=== PATIENT | female | born 1940 | race Caucasian/White ===

== ENCOUNTER 2018-06-19 12:16 | Emergency (ER) | payer MEDICARE, OTHER ==
[~2018-06-19] VITALS: Ht 165.1 cm; Wt 68.0 kg
--- OUTSIDE RECORDS SUMMARY | 2018-06-19 12:23 | XMS REPORT | CCD ---
Author Author Georgette Milner MD, [facility] Address [address] [place] [address] Phone Care Team Providers Care Whitewasher Name Role Phone PP Unavailable CCM Unavailable Summary Purpose Interface Exchange Insurance Providers Payer name Policy type / Coverage type Covered democrat ID Effective Begin Date Effective End Date WPS Medicare Part B Medicare Part B [id number] Unknown [employer] Medicare Part B [id number] Unknown Family history Mother Diagnosis Age At Onset Arthritis Unknown Heart Attack Unknown Coronary Artery Disease Unknown Brother Diagnosis Age At Onset Arthritis Unknown Cancer Unknown Father Diagnosis Age At Onset Cancer Unknown Arthritis Unknown Sister Diagnosis Age At Onset Arthritis Unknown Social History Social History Element Codes Description Effective Dates Marital status Unknown Fred 08/17/2015 Employment Unknown Retired 08/17/[address]: 107349742 Never smoker 08/17/[address]: 398127827 Never drinks alcohol 08/17/2015 Allergies, Adverse Reactions, Alerts Substance Reaction Codes Entered Date Inactivated Date Status levothyroxine drowsiness RxNorm: 45029 07/24/2017 No Inactive Date Active * OTHER REACTION - SEE ANSWER BOX LEVOTHYROXINE - pt cannot tolerate medication Unknown 07/24/2017 No Inactive Date Active CODEINE emesis, RxNorm: 2670 08/17/2015 No Inactive Date Active Past Medical History Illness Codes Condition Status Onset Date Resolved Date Essential (primary) hypertension ICD-9: 401.1 ICD-10: I10 Active 05/18/2016 Unknown Gastro-esophageal reflux disease without esophagitis ICD-9: 530.81 ICD-10: K21.9 Active 11/01/2017 Unknown Hypothyroidism, unspecified ICD-9: 244.9 ICD-10: E03.9 Active 01/27/2017 Unknown Anemia, unspecified ICD-9: 285.9 ICD-10: D64.9 Active 08/20/2015 Unknown Iron deficiency anemia, unspecified ICD-9: 280.9 ICD-10: D50.9 Active 08/16/2015 Unknown Other specified hypothyroidism ICD-9: 244.8 ICD-10: E03.8 Active 10/16/2017 Unknown Major depressive disorder, single episode, unspecified ICD-9: 311 ICD-10: F32.9 Active 11/23/2015 Unknown Acute laryngopharyngitis ICD-9: 465.0 ICD-10: J06.0 Active 06/28/2017 Unknown Other allergic rhinitis ICD-9: 477.8 ICD-10: J30.89 Active 06/28/2017 Unknown Hypothryroidism Unknown Active 01/27/2017 Unknown Encounter for general adult medical examination with abnormal findings ICD-9: V70.0 ICD-10: Z00.01 Active 01/10/2017 Unknown Generalized anxiety disorder ICD-9: 308.0 ICD-10: F41.1 Active 02/24/2016 Unknown Major depressive disorder, single episode, mild ICD-9: 296.21 ICD-10: F32.0 Active 05/18/2016 Unknown Essential (primary) hypertension ICD-9: 401.9 ICD-10: I10 Active 02/24/2016 Unknown Localized edema ICD-9 : 782.3 ICD-10: R60.0 Active 02/24/2016 Unknown Depression Unknown Active 08/17/2015 Unknown Osteoarthritis Unknown Active 08/17/2015 Unknown Unspecified osteoarthritis, unspecified site ICD-9: 715.90 ICD-10: M19.90 Active 08/16/2015 Unknown Vitamin D deficiency, unspecified ICD-9: 268.9 ICD-10: E55.9 Active 08/16/2015 Unknown Problems Condition Codes Effective Dates Condition Status Essential (primary) hypertension ICD-9: 401.1 ICD-10: I10 05/18/2016 Active Gastro-esophageal reflux disease without esophagitis ICD-9: 530.81 ICD-10: K21.9 11/01/2017 Active Hypothyroidism, unspecified ICD-9: 244.9 ICD-10: E03.9 01/27/2017 Active Anemia, unspecified ICD-9: 285.9 ICD-10: D64.9 08/20/2015 Active Iron deficiency anemia, unspecified ICD-9: 280.9 ICD-10: D50.9 08/16/2015 Active Other specified hypothyroidism ICD-9: 244.8 ICD-10: E03.8 10/16/2017 Active Major depressive disorder, single episode, unspecified ICD-9: 311 ICD-10: F32.9 11/23/2015 Active Acute laryngopharyngitis ICD-9: 465.0 ICD-10: J06.0 06/28/2017 Active Other allergic rhinitis ICD-9: 477.8 ICD-10: J30.89 06/28/2017 Active Hypothryroidism Unknown 01/27/2017 Active Encounter for general adult medical examination with abnormal findings ICD-9: V70.0 ICD-10: Z00.01 01/10/2017 Active Generalized anxiety disorder ICD-9: 308.0 ICD-10: F41.1 02/24/2016 Active Major depressive disorder, single episode, mild ICD-9: 296.21 ICD-10: F32.0 05/18/2016 Active Essential (primary) hypertension ICD-9: 401.9 ICD-10: I10 02/24/2016 Active Localized edema ICD-9 : 782.3 ICD-10: R60.0 02/24/2016 Active Depression Unknown 08/17/2015 Active Osteoarthritis Unknown 08/17/2015 Active Unspecified osteoarthritis, unspecified site ICD-9: 715.90 ICD-10: M19.90 08/16/2015 Active Vitamin D deficiency, unspecified ICD-9: 268.9 ICD-10: E55.9 08/16/2015 Active Medications Medication Codes Instructions Start Date Stop Date Status Fill Instructions losartan 100 mg-hydrochlorothiazide 12.5 mg tablet RxNorm: 817807 TAKE 1 TABLET BY MOUTH DAILY 06/12/2018 03/08/2019 Active Generic For:HYZAAR TAB 100/12.5 2017 8:42:57 AM escitalopram 20 mg tablet RxNorm: 364703 1 Tablet(s) daily 09/15/2018 Active losartan 100 mg-hydrochlorothiazide 12.5 mg tablet RxNorm: 361889 TAKE 1 TABLET BY MOUTH DAILY 11/16/2017 05/14/2018 Inactive Generic For:HYZAAR TAB 100/12.5 8:31:08 AM escitalopram 20 mg tablet RxNorm: 002403 1 Tablet(s) daily 02/11/2018 Inactive losartan 100 mg-hydrochlorothiazide 12.5 mg tablet RxNorm: 160783 Tablet(s) TAKE ONE TABLET BY MOUTH ONCE DAILY 08/16/2017 11/15/2017 Inactive escitalopram 20 mg tablet RxNorm: 915922 1 Tablet(s) daily 08/15/2017 Inactive Vitamin D3 2,000 unit tablet RxNorm: 184548 1867 Unit(s) PO daily 07/24/2017 No Stop Date Active escitalopram 20 mg tablet RxNorm: 324671 1 Tablet(s) daily 08/15/2017 Inactive levothyroxine 50 mcg tablet RxNorm: 723328 1 Tablet(s) PO daily 07/21/2017 07/20/2017 Inactive this is a new higher dose - dc the lower dose from her med refill que levothyroxine 50 mcg tablet RxNorm: 249325 1 Tablet(s) PO daily 07/21/2017 07/23/2017 Inactive this is a new higher dose - dc the lower dose from her med refill que Kenalog 40 mg/mL suspension for injection RxNorm: 7673964 1 Milliliter(s) Inj 06/28/2017 06/28/2017 Inactive prednisone 20 mg tablet RxNorm: 215475 2 Tablet(s) PO daily 07/02/2017 Inactive ceftriaxone 500 mg solution for injection RxNorm: 7755858 1 Milliliter(s) Inj 06/28/2017 06/28/2017 Inactive Keflex 500 mg capsule RxNorm: 772971 1 Capsule(s) PO TID 201607/07/2017 Inactive Zithromax Z-Bob 250 mg tablet RxNorm: 407345 1 Tablet(s) PO UD 06/23/2017 06/27/2017 Inactive Pepcid 20 mg tablet RxNorm: 551787 1 Tablet(s) PO BID 201607/23/2017 Inactive Zithromax Z-Bob 250 mg tablet RxNorm: 674627 1 Tablet(s) PO UD 06/23/2017 06/22/2017 Inactive Pepcid 20 mg tablet RxNorm: 867919 1 Tablet(s) PO BID 201606/22/2017 Inactive losartan 100 mg-hydrochlorothiazide 12.5 mg tablet RxNorm: 603799 TAKE ONE TABLET BY MOUTH ONCE DAILY 05/19/2017 08/15/2017 Inactive escitalopram 20 mg tablet RxNorm: 856563 TAKE ONE-HALF TABLET BY MOUTH TWICE DAILY 02/20/2017 07/23/2017 Inactive levothyroxine 25 mcg tablet RxNorm: 402653 1 Tablet(s) PO daily 01/27/2017 01/26/2017 Inactive levothyroxine 25 mcg tablet RxNorm: 498393 1 Tablet(s) PO daily 01/27/2017 05/26/2017 Inactive levothyroxine 25 mcg tablet RxNorm: 688788 1 Tablet(s) PO daily 01/27/2017 01/26/2017 Inactive escitalopram 20 mg tablet RxNorm: 306955 TAKE ONE-HALF TABLET BY MOUTH TWICE DAILY 12/19/2016 02/16/2017 Inactive escitalopram 20 mg tablet RxNorm: 006278 TAKE ONE-HALF TABLET BY MOUTH TWICE DAILY 09/21/2016 09/20/2016 Inactive escitalopram 20 mg tablet RxNorm: 443064 Tablet(s) TAKE ONE-HALF TABLET BY MOUTH TWICE DAILY 09/21/2016 10/31/2017 Inactive escitalopram 20 mg tablet RxNorm: 977510 1/2 Tablet(s) PO BID 05/19/2016 09/15/2016 Inactive losartan 100 mg-hydrochlorothiazide 12.5 mg tablet RxNorm: 728164 1 Tablet(s) PO daily 05/19/2016 05/13/2017 Inactive losartan 50 mg-hydrochlorothiazide 12.5 mg tablet RxNorm: 787374 1 Tablet(s) PO daily 02/25/2016 05/18/2016 Inactive escitalopram 10 mg tablet RxNorm: 107283 1/2 Tablet(s) PO BID 02/25/2016 05/18/2016 Inactive losartan 25 mg tablet RxNorm: 028010 1 Tablet(s) PO daily 201502/24/2016 Inactive Lexapro 5 mg tablet RxNorm: 977531 1 Tablet(s) PO QPM 201502/24/2016 Inactive Vitamin D2 50,000 unit capsule RxNorm: 959482 1 Capsule(s) PO QW 08/21/2015 11/23/2015 Inactive melatonin 3 mg tablet RxNorm: 762059 1 Tablet(s) PO QHS No Start Date Active bilberry 100 mg capsule RxNorm: 068860 1 Capsule(s) PO daily No Start Date Active Calcium 500 + D 500 mg (1,250 mg)-200 unit tablet RxNorm: 130429 1 Tablet(s) PO daily No Start Date 07/23/2017 Inactive Vitamin D2 oral RxNorm : 4018 oral No Start Date 08/21/2015 Inactive Vitamin D3 2,000 unit tablet RxNorm: 090451 1 Tablet(s) PO daily No Start Date 07/23/2017 Inactive boron oral RxNorm: 1705 oral No Start Date 11/23/2015 Inactive Joint Formula tablet RxNorm: 1 Tablet(s) PO BID No Start Date 07/23/2017 Inactive Super B-Complex oral RxNorm: oral No Start Date 10/31/2017 Inactive Vitamin D2 50,000 unit capsule RxNorm: 949860 1 Capsule(s) PO QW No Start Date 08/20/2015 Inactive Medication Administered Medication Codes Instructions Start Date Status Kenalog 40 mg/mL suspension for injection RxNorm: 4777684 1Milliliter 06/28/2017 No longer Active ceftriaxone 500 mg solution for injection RxNorm: 6829374 1Milliliter 06/28/2017 No longer Active Immunizations No Immunization data Assessments Condition Codes Effective Dates Essential (primary) hypertension ICD-10: I10 ICD-9: 401.1 03/08/2018 Hypothyroidism, unspecified ICD-10: E03.9 ICD-9: 244.9 03/02/2018 Gastro-esophageal reflux disease without esophagitis ICD-10 : K21.9 ICD-9: 530.81 11/01/2017 Anemia, unspecified ICD-10: D64.9 ICD-9: 285.9 10/16/2017 Other specified hypothyroidism ICD-10: E03.8 ICD-9: 244.8 10/16/2017 Iron deficiency anemia, unspecified ICD-10: D50.9 ICD-9: 280.9 10/16/2017 Major depressive disorder, single episode, unspecified ICD- 10: F32.9 ICD-9: 311 07/24/2017 Acute laryngopharyngitis ICD-10: J06.0 ICD-9: 465.0 06/28/2017 Other allergic rhinitis ICD-10: J30.89 ICD-9: 477.8 06/28/2017 Encounter for general adult medical examination with abnormal findings ICD-10: Z00.01 ICD-9: V70.0 01/10/2017 Generalized anxiety disorder ICD-10: F41.1 ICD-9: 308.0 01/02/2017 Major depressive disorder, single episode, mild ICD-10: F32.0 ICD-9: 296.21 01/02/2017 Essential (primary) hypertension ICD-10: I10 ICD-9: 401.9 02/25/2016 Localized edema ICD-10: R60.0 ICD-9: 782.3 02/25/2016 Unspecified osteoarthritis, unspecified site ICD-10: M19.90 ICD-9: 715.90 08/17/2015 Vitamin D deficiency, unspecified ICD-10: E55.9 ICD-9: 268.9 08/17/2015 Reason For Visit Reason For Visit Effective Dates Notes hypertension 03/08/2018 hypertension 11/01/2017 medication follow up 07/24/2017 Synthroid hypertension 07/06/2017 cough 06/28/2017 Annual Medicare Wellness Exam 01/10/2017 hypertension 01/02/2017 hypertension 06/23/2016 hypertension 05/19/2016 hypertension 02/25/2016 hypertension 11/24/2015 nocturia 11/03/2015 nocturia 08/17/2015 Results Observation Observation Code Item Item Code Result Date Tsh Ord6 TSH (3rd IS) 4.72 uIU/mL 03/06/2018 Free T4 Xuf321 FREE T4 0.81 ng/dL 03/06/2018 Free T4 Eiq400 FREE T4 0.93 ng/dL 10/30/2017 Comp Metabolic Vhv891 NA 139 mEq/L 10/30/2017 Comp Metabolic Phz596 K 4.1 mEq/L 10/30/2017 Comp Metabolic Kiw310 CL 100 mEq/L 10/30/2017 Comp Metabolic Glx101 CO2 33.0 mEq/L 10/30/2017 Comp Metabolic Tmj734 ANION GAP 10 10/30/2017 Comp Metabolic Hqf117 GLUCOSE 97 mg/dL 10/30/2017 Comp Metabolic Vdo272 Creat 0.7 mg/dL 10/30/2017 Comp Metabolic Sny239 eGFR 80 ml/min/1.73m2 10/30/2017 Comp Metabolic Kbw494 BUN 6 mg/dL 10/30/2017 Comp Metabolic Lln383 B/C Ratio 8.1 Ratio 10/30/2017 Comp Metabolic Kuk838 CALCIUM 8.9 mg/dL 10/30/2017 Comp Metabolic Vdg930 ALK PHOS 76 U/L 10/30/2017 Comp Metabolic Prb190 AST(SGOT) 19 U/L 10/30/2017 Comp Metabolic Eas586 ALT(SGPT) 16 U/L 10/30/2017 Comp Metabolic Xoz316 BILI T 0.5 mg/dL 10/30/2017 Comp Metabolic Dmh354 ALBUMIN 3.9 g/dL 10/30/2017 Comp Metabolic Hal324 TPRO 6.1 g/dL 10/30/2017 Comp Metabolic Zdh877 GLOB 2.2 g/dL 10/30/2017 Comp Metabolic Cvl078 A/G Ratio 1.8 Ratio 10/30/2017 Comp Metabolic Uel429 Osmo 275 mOsmo 10/30/2017 Lipid Ord30 CHOL 205 mg/dL 10/30/2017 Lipid Ord30 HDL 59.0 mg/dl 10/30/2017 Lipid Ord30 TRIG 88 mg/dL 10/30/2017 Lipid Ord30 LDL 128 mg/dL 10/30/2017 Lipid Ord30 C/HDL 3.5 Ratio 10/30/2017 Cbc With Differential Ord2 WBC 3.35 K/ul 10/30/2017 Cbc With Differential Ord2 RBC 4.54 M/ul 10/30/2017 Cbc With Differential Ord2 HGB 14.0 g/dl 10/30/2017 Cbc With Differential Ord2 HCT 43.1 % 10/30/2017 Cbc With Differential Ord2 Neut% 41.7 % 10/30/2017 Cbc With Differential Ord2 MCV 94.9 fl 10/30/2017 Cbc With Differential Ord2 Lymph% 43.6 % 10/30/2017 Cbc With Differential Ord2 MCH 30.8 pg 10/30/2017 Cbc With Differential Ord2 Henderson% 9.9 % 10/30/2017 Cbc With Differential Ord2 Eos% 3.6 % 10/30/2017 Cbc With Differential Ord2 MCHC 32.5 pg 10/30/2017 Cbc With Differential Ord2 Baso% 1.2 % 10/30/2017 Cbc With Differential Ord2 PLT 199 K/ul 10/30/2017 Cbc With Differential Ord2 RDW 13.3 % 10/30/2017 Cbc With Differential Ord2 Neut ABS# 1.40 K/ul 10/30/2017 Cbc With Differential Ord2 Lymph ABS# 1.46 K/ul 10/30/2017 Cbc With Differential Ord2 Henderson ABS# 0.3 K/ul 10/30/2017 Cbc With Differential Ord2 Eos ABS# 0.1 K/ul 10/30/2017 Cbc With Differential Ord2 Baso ABS# 0.0 K/ul 10/30/2017 Tsh Ord6 TSH (3rd IS) 4.56 uIU/mL 10/30/2017 Tsh Ord6 hTSH II 4.86 uIU/mL 07/21/2017 Hepatic Nca848 ALBUMIN 3.8 g/dL 07/21/2017 Hepatic Pma709 TPRO 6.1 g/dL 07/21/2017 Hepatic Lcz734 GLOB 2.3 g/dL 07/21/2017 Hepatic Jhe944 A/G Ratio 1.6 Ratio 07/21/2017 Hepatic War268 ALK PHOS 75 U/L 07/21/2017 Hepatic Zml925 ALT(SGPT) 21 U/L 07/21/2017 Hepatic Jrz527 AST(SGOT) 18 U/L 07/21/2017 Hepatic Rgj651 BILI T 0.3 mg/dL 07/21/2017 Hepatic Ytw478 BILI D 0.1 mg/dL 07/21/2017 Hepatic Zdo727 BILI I 0.2 mg/dL 07/21/2017 Free T4 Gmw365 FREE T4 0.84 ng/dL 07/21/2017 Lipid Ord30 CHOL 202 mg/dL 07/21/2017 Lipid Ord30 HDL 60.0 mg/dl 07/21/2017 Lipid Ord30 TRIG 80 mg/dL 07/21/2017 Lipid Ord30 LDL 126 mg/dL 07/21/2017 Lipid Ord30 C/HDL 3.4 Ratio 07/21/2017 Free T4 Fyq086 FREE T4 0.96 ng/dL 04/28/2017 Lipid Ord30 CHOL 195 mg/dL 04/28/2017 Lipid Ord30 HDL 53.0 mg/dl 04/28/2017 Lipid Ord30 TRIG 96 mg/dL 04/28/2017 Lipid Ord30 LDL 123 mg/dL 04/28/2017 Lipid Ord30 C/HDL 3.7 Ratio 04/28/2017 Tsh Ord6 hTSH II 3.95 uIU/mL 04/28/2017 Hepatic Qph167 ALBUMIN 4.0 g/dL 04/28/2017 Hepatic Jxh926 TPRO 6.2 g/dL 04/28/2017 Hepatic Fag043 GLOB 2.2 g/dL 04/28/2017 Hepatic Hjv694 A/G Ratio 1.8 Ratio 04/28/2017 Hepatic Fmy338 ALK PHOS 77 U/L 04/28/2017 Hepatic Txh433 ALT(SGPT) 14 U/L 04/28/2017 Hepatic Cib862 AST(SGOT) 17 U/L 04/28/2017 Hepatic Smv005 BILI T 0.6 mg/dL 04/28/2017 Hepatic Pox338 BILI D 0.1 mg/dL 04/28/2017 Hepatic Hrl531 BILI I 0.5 mg/dL 04/28/2017 Free T4 Viu574 FREE T4 0.78 ng/dL 02/01/2017 Comp Metabolic Ddi681 NA 138 mEq/L 01/26/2017 Comp Metabolic Oob871 K 5.4 mEq/L 01/26/2017 Comp Metabolic Qpz582 CL 102 mEq/L 01/26/2017 Comp Metabolic Vjk934 CO2 30.0 mEq/L 01/26/2017 Comp Metabolic Zdr404 ANION GAP 11 01/26/2017 Comp Metabolic Uie292 GLUCOSE 93 mg/dL 01/26/2017 Comp Metabolic Aai857 Creat 0.8 mg/dL 01/26/2017 Comp Metabolic Wnx337 eGFR 71 ml/min/1.73m2 01/26/2017 Comp Metabolic Xna970 BUN 13 mg/dL 01/26/2017 Comp Metabolic Vpg872 B/C Ratio 15.9 Ratio 01/26/2017 Comp Metabolic Lnk305 CALCIUM 9.5 mg/dL 01/26/2017 Comp Metabolic Zvq546 ALK PHOS 71 U/L 01/26/2017 Comp Metabolic Naa887 AST(SGOT) 15 U/L 01/26/2017 Comp Metabolic Ypk213 ALT(SGPT) 11 U/L 01/26/2017 Comp Metabolic Vfh617 BILI T 0.5 mg/dL 01/26/2017 Comp Metabolic Zcu646 ALBUMIN 4.0 g/dL 01/26/2017 Comp Metabolic Eyf413 TPRO 6.4 g/dL 01/26/2017 Comp Metabolic Xac627 GLOB 2.4 g/dL 01/26/2017 Comp Metabolic Ykj264 A/G Ratio 1.7 Ratio 01/26/2017 Comp Metabolic Frr030 Osmo 275 mOsmo 01/26/2017 Bili D Ord93 BILI D 0.1 mg/dL 01/26/2017 Bili D Ord93 BILI I 0.4 mg/dL 01/26/2017 Tsh Ord6 hTSH II 5.36 uIU/mL 01/26/2017 Cbc With Differential Ord2 WBC 4.03 K/ul 01/26/2017 Cbc With Differential Ord2 RBC 4.70 M/ul 01/26/2017 Cbc With Differential Ord2 HGB 14.0 g/dl 01/26/2017 Cbc With Differential Ord2 HCT 41.6 % 01/26/2017 Cbc With Differential Ord2 Neut% 37.3 % 01/26/2017 Cbc With Differential Ord2 MCV 88.5 fl 01/26/2017 Cbc With Differential Ord2 Lymph% 49.9 % 01/26/2017 Cbc With Differential Ord2 Henderson% 8.9 % 01/26/2017 Cbc With Differential Ord2 MCH 29.8 pg 01/26/2017 Cbc With Differential Ord2 MCHC 33.7 pg 01/26/2017 Cbc With Differential Ord2 Eos% 2.7 % 01/26/2017 Cbc With Differential Ord2 PLT 216 K/ul 01/26/2017 Cbc With Differential Ord2 Baso% 1.2 % 01/26/2017 Cbc With Differential Ord2 RDW 14.0 % 01/26/2017 Cbc With Differential Ord2 Neut ABS# 1.50 K/ul 01/26/2017 Cbc With Differential Ord2 Lymph ABS# 2.01 K/ul 01/26/2017 Cbc With Differential Ord2 Henderson ABS# 0.4 K/ul 01/26/2017 Cbc With Differential Ord2 Eos ABS# 0.1 K/ul 01/26/2017 Cbc With Differential Ord2 Baso ABS# 0.1 K/ul 01/26/2017 Lipid Ord30 CHOL 198 mg/dL 01/26/2017 Lipid Ord30 HDL 60.0 mg/dl 01/26/2017 Lipid Ord30 TRIG 79 mg/dL 01/26/2017 Lipid Ord30 LDL 122 mg/dL 01/26/2017 Lipid Ord30 C/HDL 3.3 Ratio 01/26/2017 Lipid Ord30 CHOL 201 mg/dL 07/22/2016 Lipid Ord30 HDL 59.0 mg/dl 07/22/2016 Lipid Ord30 TRIG 69 mg/dL 07/22/2016 Lipid Ord30 LDL 128 mg/dL 07/22/2016 Lipid Ord30 C/HDL 3.4 Ratio 07/22/2016 Comp Metabolic Lns701 NA 137 mEq/L 07/22/2016 Comp Metabolic Lus535 K 4.3 mEq/L 07/22/2016 Comp Metabolic Snq832 CL 101 mEq/L 07/22/2016 Comp Metabolic Sas536 CO2 31.0 mEq/L 07/22/2016 Comp Metabolic Tsg317 ANION GAP 9 07/22/2016 Comp Metabolic Qfr404 GLUCOSE 90 mg/dL 07/22/2016 Comp Metabolic Uad761 Creat 0.9 mg/dL 07/22/2016 Comp Metabolic Oim029 eGFR 64 ml/min/1.73m2 07/22/2016 Comp Metabolic Tgw919 BUN 9 mg/dL 07/22/2016 Comp Metabolic Fqa883 B/C Ratio 10.0 Ratio 07/22/2016 Comp Metabolic Knj672 CALCIUM 9.4 mg/dL 07/22/2016 Comp Metabolic Bkf954 ALK PHOS 65 U/L 07/22/2016 Comp Metabolic Awa954 AST(SGOT) 16 U/L 07/22/2016 Comp Metabolic Hkp883 ALT(SGPT) 13 U/L 07/22/2016 Comp Metabolic Qmm633 BILI T 0.4 mg/dL 07/22/2016 Comp Metabolic Jfw800 ALBUMIN 4.2 g/dL 07/22/2016 Comp Metabolic Ygz499 TPRO 6.6 g/dL 07/22/2016 Comp Metabolic Fmp814 GLOB 2.4 g/dL 07/22/2016 Comp Metabolic Rjw681 A/G Ratio 1.7 Ratio 07/22/2016 Comp Metabolic Zln055 Osmo 272 mOsmo 07/22/2016 Tsh Ord6 hTSH II 3.94 uIU/mL 07/22/2016 Vitamin D 25 Oh Agz8293 VITAMIN D, 25 HYDROXY 55.11 ng/mL Comp Metabolic Pvv901 NA 139 mEq/L 11/02/2015 Comp Metabolic Oer268 K 4.3 mEq/L 11/02/2015 Comp Metabolic Sct175 CL 103 mEq/L 11/02/2015 Comp Metabolic Okp053 CO2 29.0 mEq/L 11/02/2015 Comp Metabolic Cab970 ANION GAP 11 11/02/2015 Comp Metabolic Axg607 GLUCOSE 87 mg/dL 11/02/2015 Comp Metabolic Paz103 Creat 0.8 mg/dL 11/02/2015 Comp Metabolic Lyk678 eGFR 70 ml/min/1.73m2 11/02/2015 Comp Metabolic Aro169 BUN 11 mg/dL 11/02/2015 Comp Metabolic Det894 B/C Ratio 13.1 Ratio 11/02/2015 Comp Metabolic Nsw734 CALCIUM 9.0 mg/dL 11/02/2015 Comp Metabolic Xgu530 ALK PHOS 90 U/L 11/02/2015 Comp Metabolic Mel872 AST(SGOT) 15 U/L 11/02/2015 Comp Metabolic Hju172 ALT(SGPT) 12 U/L 11/02/2015 Comp Metabolic Bts750 BILI T 0.5 mg/dL 11/02/2015 Comp Metabolic Vto370 ALBUMIN 3.7 g/dL 11/02/2015 Comp Metabolic Lae825 TPRO 6.2 g/dL 11/02/2015 Comp Metabolic Yap674 GLOB 2.5 g/dL 11/02/2015 Comp Metabolic Zys237 A/G Ratio 1.5 Ratio 11/02/2015 Comp Metabolic Cqb709 Osmo 276 mOsmo 11/02/2015 Iron Ord72 Iron 36 ug/dl 08/25/2015 Vitamin D 25 Oh Asn8936 VITAMIN D, 25 HYDROXY 26.14 ng/mL Comp Metabolic Ahn846 NA 138 mEq/L 08/17/2015 Comp Metabolic Xup430 K 4.5 mEq/L 08/17/2015 Comp Metabolic Fxd674 CL 100 mEq/L 08/17/2015 Comp Metabolic Kip133 CO2 29.0 mEq/L 08/17/2015 Comp Metabolic Fmd385 ANION GAP 14 08/17/2015 Comp Metabolic Smy994 GLUCOSE 88 mg/dL 08/17/2015 Comp Metabolic Dir115 Creat 0.8 mg/dL 08/17/2015 Comp Metabolic Dlr434 eGFR 74 ml/min/1.73m2 08/17/2015 Comp Metabolic Srg400 BUN 9 mg/dL 08/17/2015 Comp Metabolic Qwr637 B/C Ratio 11.3 Ratio 08/17/2015 Comp Metabolic Kts959 CALCIUM 9.1 mg/dL 08/17/2015 Comp Metabolic Div746 ALK PHOS 88 U/L 08/17/2015 Comp Metabolic Hhn191 AST(SGOT) 16 U/L 08/17/2015 Comp Metabolic Spz757 ALT(SGPT) 13 U/L 08/17/2015 Comp Metabolic Frf827 BILI T 0.4 mg/dL 08/17/2015 Comp Metabolic Jtl252 ALBUMIN 4.0 g/dL 08/17/2015 Comp Metabolic Nwi725 TPRO 6.5 g/dL 08/17/2015 Comp Metabolic Utw276 GLOB 2.5 g/dL 08/17/2015 Comp Metabolic Xiw363 A/G Ratio 1.6 Ratio 08/17/2015 Comp Metabolic Zil172 Osmo 274 mOsmo 08/17/2015 Cbc With Differential Ord2 WBC 3.54 K/ul 08/17/2015 Cbc With Differential Ord2 RBC 4.63 M/ul 08/17/2015 Cbc With Differential Ord2 HGB 12.8 g/dl 08/17/2015 Cbc With Differential Ord2 Neut% 44.4 % 08/17/2015 Cbc With Differential Ord2 HCT 40.3 % 08/17/2015 Cbc With Differential Ord2 Lymph% 42.1 % 08/17/2015 Cbc With Differential Ord2 MCV 87.0 fl 08/17/2015 Cbc With Differential Ord2 MCH 27.6 pg 08/17/2015 Cbc With Differential Ord2 Henderson% 10.7 % 08/17/2015 Cbc With Differential Ord2 Eos% 2.0 % 08/17/2015 Cbc With Differential Ord2 MCHC 31.8 pg 08/17/2015 Cbc With Differential Ord2 PLT 233 K/ul 08/17/2015 Cbc With Differential Ord2 Baso% 0.8 % 08/17/2015 Cbc With Differential Ord2 RDW 15.8 % 08/17/2015 Cbc With Differential Ord2 Neut ABS# 1.57 K/ul 08/17/2015 Cbc With Differential Ord2 Lymph ABS# 1.49 K/ul 08/17/2015 Cbc With Differential Ord2 Henderson ABS# 0.4 K/ul 08/17/2015 Cbc With Differential Ord2 Eos ABS# 0.1 K/ul 08/17/2015 Cbc With Differential Ord2 Baso ABS# 0.0 K/ul 08/17/2015 Cbc With Differential Ord2 New Analyzer Notice Please note new ref ranges starting 07-15-2015 due to implemntation of new five part differential hematolgy analyzer. 08/17/2015 Lipid Ord30 CHOL 181 mg/dL 08/17/2015 Lipid Ord30 HDL 61.0 mg/dl 08/17/2015 Lipid Ord30 TRIG 73 mg/dL 08/17/2015 Lipid Ord30 LDL 105 mg/dL 08/17/2015 Lipid Ord30 C/HDL 3.0 Ratio 08/17/2015 Tsh Ord6 hTSH II 2.65 uIU/mL 08/17/2015 Review of Systems System Result Effective Dates Constitutional No recent illness 2017 Constitutional No chills 03/08/2018 Constitutional No diaphoresis 03/08/2018 Constitutional fatigue 03/08/2018 Constitutional No fever 03/08/2018 Constitutional No malaise 03/08/2018 Eyes No eye discharge 03/08/2018 Eyes No eye erythema 03/08/2018 Ears/Nose/Throat/Neck No nasal allergies 03/08/2018 Ears/Nose/Throat/Neck No nasal discharge 03/08/2018 Cardiovascular No chest pain/pressure 12/2017 Cardiovascular No dyspnea 03/08/2018 Respiratory No productive sputum 2017 Respiratory cough 03/08/2018 Gastrointestinal No abdominal pain 2017 Gastrointestinal gastroesophageal reflux 03/08/2018 Dermatologic No rash 03/08/2018 Neurologic No alteration of consciousness 03/08/2018 Neurologic No mental status change 2017 Psychiatric No anxiety 03/08/2018 Psychiatric No depression 03/08/2018 Constitutional No recent illness 2017 Constitutional No chills 11/01/2017 Constitutional No diaphoresis 11/01/2017 Constitutional fatigue 11/01/2017 Constitutional No fever 11/01/2017 Constitutional No malaise 11/01/2017 Eyes No eye discharge 11/01/2017 Eyes No eye erythema 11/01/2017 Ears/Nose/Throat/Neck No nasal allergies 11/01/2017 Ears/Nose/Throat/Neck No nasal discharge 11/01/2017 Cardiovascular No chest pain/pressure 08/2017 Cardiovascular No dyspnea 11/01/2017 Respiratory No productive sputum 2017 Respiratory cough 11/01/2017 Gastrointestinal No abdominal pain 2017 Dermatologic No rash 11/01/2017 Neurologic No alteration of consciousness 11/01/2017 Neurologic No mental status change 2017 Psychiatric No anxiety 11/01/2017 Psychiatric No depression 11/01/2017 Gastrointestinal gastroesophageal reflux 11/01/2017 Constitutional No recent illness 2017 Constitutional No chills 07/24/2017 Constitutional No diaphoresis 07/24/2017 Constitutional fatigue 07/24/2017 Constitutional No fever 07/24/2017 Constitutional No malaise 07/24/2017 Eyes No eye discharge 07/24/2017 Eyes No eye erythema 07/24/2017 Ears/Nose/Throat/Neck No nasal allergies 07/24/2017 Ears/Nose/Throat/Neck No nasal discharge 07/24/2017 Cardiovascular No chest pain/pressure Cardiovascular No dyspnea 07/24/2017 Respiratory No productive sputum 2017 Respiratory No cough 07/24/2017 Gastrointestinal No abdominal pain 2017 Dermatologic No rash 07/24/2017 Neurologic No alteration of consciousness 07/24/2017 Neurologic No mental status change 2017 Constitutional No recent illness 2017 Constitutional No anorexia 07/06/2017 Constitutional No night sweats 2017 Constitutional No chills 07/06/2017 Constitutional No diaphoresis 07/06/2017 Constitutional fatigue 07/06/2017 Constitutional No fever 07/06/2017 Constitutional No malaise 07/06/2017 Eyes No eye discharge 07/06/2017 Eyes No eye erythema 07/06/2017 Ears/Nose/Throat/Neck No dizziness 2017 Ears/Nose/Throat/Neck No nasal allergies 07/06/2017 Ears/Nose/Throat/Neck No nasal discharge 07/06/2017 Ears/Nose/Throat/Neck No otalgia 2017 Cardiovascular No chest pain/pressure 10/2017 Cardiovascular No dyspnea 07/06/2017 Respiratory No productive sputum 2017 Respiratory No cough 07/06/2017 Gastrointestinal No abdominal pain 2017 Gastrointestinal No diarrhea 07/06/2017 Genitourinary/Nephrology No dysuria 07/06 Genitourinary/Nephrology urinary incontinence 07/06/2017 Dermatologic No rash 07/06/2017 Dermatologic No sores 07/06/2017 Neurologic No alteration of consciousness 07/06/2017 Psychiatric anxiety 07/06/2017 Psychiatric depression 07/06/2017 Constitutional recent illness 06/28/2017 Constitutional No chills 06/28/2017 Constitutional No diaphoresis 06/28/2017 Constitutional No fever 06/28/2017 Eyes No eye erythema 06/28/2017 Ears/Nose/Throat/Neck nasal allergies Ears/Nose/Throat/Neck nasal discharge Ears/Nose/Throat/Neck postnasal drip Ears/Nose/Throat/Neck sinus congestion Ears/Nose/Throat/Neck sore throat 2016 Cardiovascular No chest pain/pressure Cardiovascular No dyspnea 06/28/2017 Respiratory No chest congestion 2016 Respiratory cough 06/28/2017 Respiratory No dyspnea 06/28/2017 Gastrointestinal No constipation 2016 Gastrointestinal No diarrhea 06/28/2017 Gastrointestinal No nausea 06/28/2017 Gastrointestinal No vomiting 06/28/2017 Dermatologic No rash 06/28/2017 Neurologic No alteration of consciousness 06/28/2017 Neurologic No mental status change 2016 Constitutional No recent illness 2016 Constitutional No chills 01/10/2017 Constitutional No diaphoresis 01/10/2017 Constitutional No fever 01/10/2017 Eyes No eye erythema 01/10/2017 Ears/Nose/Throat/Neck No nasal discharge 01/10/2017 Cardiovascular No chest pain/pressure 05/2017 Respiratory No dyspnea 01/10/2017 Respiratory No cough 01/10/2017 Neurologic No alteration of consciousness 01/10/2017 Neurologic No mental status change 2016 Constitutional No recent illness 2016 Constitutional No chills 01/02/2017 Constitutional No diaphoresis 01/02/2017 Constitutional fatigue 01/02/2017 Constitutional No fever 01/02/2017 Ears/Nose/Throat/Neck No otalgia 2016 Cardiovascular No chest pain/pressure 08/2016 Cardiovascular No dyspnea 01/02/2017 Cardiovascular edema 01/02/2017 Respiratory No productive sputum 2016 Respiratory No cough 01/02/2017 Gastrointestinal No abdominal pain 2016 Gastrointestinal constipation 01/02/2017 Gastrointestinal No diarrhea 01/02/2017 Psychiatric anxiety 01/02/2017 Psychiatric depression 01/02/2017 Musculoskeletal No stiffness 01/02/2017 Musculoskeletal No swelling 01/02/2017 Musculoskeletal No muscle weakness 2016 Musculoskeletal No myalgias 01/02/2017 Dermatologic No rash 01/02/2017 Dermatologic No scar 01/02/2017 Neurologic No dizziness 01/02/2017 Neurologic No headache 01/02/2017 Neurologic No neck pain 01/02/2017 Neurologic No syncope 01/02/2017 Constitutional No recent illness 2015 Constitutional No chills 06/23/2016 Constitutional No diaphoresis 06/23/2016 Constitutional fatigue 06/23/2016 Constitutional No fever 06/23/2016 Ears/Nose/Throat/Neck No otalgia 2015 Cardiovascular No chest pain/pressure Cardiovascular No dyspnea 06/23/2016 Cardiovascular edema 06/23/2016 Respiratory No productive sputum 2015 Respiratory No cough 06/23/2016 Gastrointestinal No abdominal pain 2015 Gastrointestinal constipation 06/23/2016 Gastrointestinal No diarrhea 06/23/2016 Psychiatric anxiety 06/23/2016 Psychiatric depression 06/23/2016 Constitutional No anorexia 06/23/2016 Constitutional No night sweats 2015 Constitutional No malaise 06/23/2016 Eyes No eye discharge 06/23/2016 Eyes No eye erythema 06/23/2016 Ears/Nose/Throat/Neck No dizziness 2015 Ears/Nose/Throat/Neck No nasal allergies 06/23/2016 Ears/Nose/Throat/Neck No nasal discharge 06/23/2016 Genitourinary/Nephrology No dysuria 06/23 Genitourinary/Nephrology urinary incontinence 06/23/2016 Dermatologic No rash 06/23/2016 Dermatologic No sores 06/23/2016 Neurologic No alteration of consciousness 06/23/2016 Constitutional No recent illness 2015 Constitutional No chills 05/19/2016 Constitutional No diaphoresis 05/19/2016 Constitutional fatigue 05/19/2016 Constitutional No fever 05/19/2016 Ears/Nose/Throat/Neck No otalgia 2015 Cardiovascular No chest pain/pressure Cardiovascular No dyspnea 05/19/2016 Cardiovascular edema 05/19/2016 Respiratory No productive sputum 2015 Respiratory No cough 05/19/2016 Gastrointestinal No abdominal pain 2015 Gastrointestinal constipation 05/19/2016 Gastrointestinal No diarrhea 05/19/2016 Psychiatric anxiety 05/19/2016 Psychiatric depression 05/19/2016 Dermatologic No rash 05/19/2016 Dermatologic No scar 05/19/2016 Musculoskeletal No stiffness 05/19/2016 Musculoskeletal No swelling 05/19/2016 Musculoskeletal No muscle weakness 2015 Musculoskeletal No myalgias 05/19/2016 Constitutional No recent illness 2015 Constitutional No chills 02/25/2016 Constitutional No diaphoresis 02/25/2016 Constitutional fatigue 02/25/2016 Constitutional No fever 02/25/2016 Ears/Nose/Throat/Neck No otalgia 2015 Cardiovascular No chest pain/pressure Cardiovascular No dyspnea 02/25/2016 Respiratory No productive sputum 2015 Respiratory No cough 02/25/2016 Gastrointestinal No abdominal pain 2015 Gastrointestinal constipation 02/25/2016 Gastrointestinal No diarrhea 02/25/2016 Psychiatric anxiety 02/25/2016 Psychiatric depression 02/25/2016 Cardiovascular edema 02/25/2016 Constitutional No recent illness 2015 Constitutional No anorexia 11/24/2015 Constitutional No night sweats 2015 Constitutional No chills 11/24/2015 Constitutional No diaphoresis 11/24/2015 Constitutional fatigue 11/24/2015 Constitutional No fever 11/24/2015 Constitutional No malaise 11/24/2015 Constitutional No weight loss 11/24/2015 Constitutional No weight gain 11/24/2015 Eyes No eye discharge 11/24/2015 Eyes No eye erythema 11/24/2015 Ears/Nose/Throat/Neck No dizziness 2015 Ears/Nose/Throat/Neck No nasal allergies 11/24/2015 Ears/Nose/Throat/Neck No nasal discharge 11/24/2015 Ears/Nose/Throat/Neck No otalgia 2015 Cardiovascular No chest pain/pressure Cardiovascular No dyspnea 11/24/2015 Respiratory No productive sputum 2015 Respiratory No cough 11/24/2015 Gastrointestinal No abdominal pain 2015 Gastrointestinal constipation 11/24/2015 Gastrointestinal No diarrhea 11/24/2015 Genitourinary/Nephrology No dysuria 11/23 Genitourinary/Nephrology nocturia 2015 Genitourinary/Nephrology urinary urgency 11/24/2015 Genitourinary/Nephrology urinary frequency 11/24/2015 Genitourinary/Nephrology urinary incontinence 11/24/2015 Dermatologic No rash 11/24/2015 Dermatologic No sores 11/24/2015 Neurologic No alteration of consciousness 11/24/2015 Psychiatric anxiety 11/24/2015 Psychiatric depression 11/24/2015 Constitutional No recent illness 2015 Constitutional No anorexia 11/03/2015 Constitutional No night sweats 2015 Constitutional No chills 11/03/2015 Constitutional No diaphoresis 11/03/2015 Constitutional fatigue 11/03/2015 Constitutional No fever 11/03/2015 Constitutional No malaise 11/03/2015 Constitutional No weight loss 11/03/2015 Constitutional No weight gain 11/03/2015 Eyes No eye discharge 11/03/2015 Eyes No eye erythema 11/03/2015 Ears/Nose/Throat/Neck No dizziness 2015 Ears/Nose/Throat/Neck No nasal allergies 11/03/2015 Ears/Nose/Throat/Neck No nasal discharge 11/03/2015 Ears/Nose/Throat/Neck No otalgia 2015 Cardiovascular No chest pain/pressure 09/2015 Cardiovascular No dyspnea 11/03/2015 Respiratory No productive sputum 2015 Respiratory No cough 11/03/2015 Gastrointestinal No abdominal pain 2015 Gastrointestinal constipation 11/03/2015 Gastrointestinal No diarrhea 11/03/2015 Genitourinary/Nephrology No dysuria 11/02 Genitourinary/Nephrology nocturia 2015 Genitourinary/Nephrology urinary urgency 11/03/2015 Genitourinary/Nephrology urinary frequency 11/03/2015 Genitourinary/Nephrology urinary incontinence 11/03/2015 Dermatologic No rash 11/03/2015 Dermatologic No sores 11/03/2015 Neurologic No alteration of consciousness 11/03/2015 Psychiatric anxiety 11/03/2015 Psychiatric depression 11/03/2015 Psychiatric depression 08/17/2015 Constitutional No recent illness 2015 Constitutional No anorexia 08/17/2015 Constitutional No night sweats 2015 Constitutional No chills 08/17/2015 Constitutional No diaphoresis 08/17/2015 Constitutional fatigue 08/17/2015 Constitutional No fever 08/17/2015 Constitutional insomnia 08/17/2015 Constitutional No malaise 08/17/2015 Constitutional No weight loss 08/17/2015 Constitutional No weight gain 08/17/2015 Eyes No eye discharge 08/17/2015 Eyes No eye erythema 08/17/2015 Ears/Nose/Throat/Neck No dizziness 2015 Ears/Nose/Throat/Neck headache 2015 Psychiatric anxiety 08/17/2015 Cardiovascular No chest pain/pressure Cardiovascular No dyspnea 08/17/2015 Cardiovascular edema 08/17/2015 Ears/Nose/Throat/Neck No nasal discharge 08/17/2015 Ears/Nose/Throat/Neck No nasal allergies 08/17/2015 Ears/Nose/Throat/Neck No otalgia 2015 Ears/Nose/Throat/Neck sinus congestion Respiratory No productive sputum 2015 Respiratory No cough 08/17/2015 Gastrointestinal No abdominal pain 2015 Gastrointestinal constipation 08/17/2015 Gastrointestinal No diarrhea 08/17/2015 Genitourinary/Nephrology No dysuria 08/17 Genitourinary/Nephrology urinary urgency 08/17/2015 Genitourinary/Nephrology urinary frequency 08/17/2015 Genitourinary/Nephrology urinary incontinence 08/17/2015 Genitourinary/Nephrology nocturia 2015 Musculoskeletal joint complaint 2015 Dermatologic No rash 08/17/2015 Dermatologic No sores 08/17/2015 Neurologic No alteration of consciousness 08/17/2015 Endocrine No dry or coarse skin 2015 Hematologic/Lymphatic No abnormal bleeding and bruising 08/17/2015 Physical Exam Exam Name System Name Item Name Status Result Effective Dates Notes Full Exam - General 1994 Constitutional general appearance Overall: well developed 03/08/2018 None Full Exam - General 1994 Constitutional general appearance Overall: in no acute distress 03/08/2018 None Full Exam - General 1994 Constitutional general appearance Overall: well nourished 03/08/2018 None Full Exam - General 1994 Eyes conjunctiva /eyelids Overall: conjunctiva clear 03/08/2018 None Full Exam - General 1994 Eyes pupils and irises Overall: pupils equal, round, reactive to light and accomodation 03/08/2018 None Full Exam - General 1994 Ears/Nose/Throat lips/teeth/gingiva Overall: benign lips 03/08/2018 None Full Exam - General 1994 Ears/Nose/Throat oral cavity/pharynx/larynx Overall: oral mucosa clear 03/08/2018 None Full Exam - General 1994 Respiratory auscultation Overall: breath sounds clear bilaterally 03/08/2018 None Full Exam - General 1994 Respiratory respiratory effort/rhythm Overall: no retractions 03/08/2018 None Full Exam - General 1994 Respiratory respiratory effort/rhythm Overall: normal rate 03/08/2018 None Full Exam - General 1994 Cardiovascular extremities Overall: no clubbing 03/08/2018 None Full Exam - General 1994 Cardiovascular auscultation of heart Overall: regular rate 03/08/2018 None Full Exam - General 1994 Cardiovascular auscultation of heart Overall: normal heart sounds 03/08/2018 None Full Exam - General 1994 Cardiovascular auscultation of heart Overall: no murmurs 03/08/2018 None Full Exam - General 1994 Musculoskeletal gait and station Overall: normal gait 03/08/2018 None Full Exam - General 1994 Musculoskeletal gait and station Overall: normal station 03/08/2018 None Full Exam - General 1994 Musculoskeletal head and neck Overall: head atraumatic 03/08/2018 None Full Exam - General 1994 Musculoskeletal head and neck Overall: cervical spine benign 03/08/2018 None Full Exam - General 1994 Psychiatric orientation/consciousness Overall: oriented to person, place and time 03/08/2018 None Full Exam - General 1994 Constitutional general appearance Overall: well developed 11/01/2017 None Full Exam - General 1994 Constitutional general appearance Overall: in no acute distress 11/01/2017 None Full Exam - General 1994 Constitutional general appearance Overall: well nourished 11/01/2017 None Full Exam - General 1994 Eyes conjunctiva /eyelids Overall: conjunctiva clear 11/01/2017 None Full Exam - General 1994 Eyes pupils and irises Overall: pupils equal, round, reactive to light and accomodation 11/01/2017 None Full Exam - General 1994 Ears/Nose/Throat lips/teeth/gingiva Overall: benign lips 11/01/2017 None Full Exam - General 1994 Ears/Nose/Throat oral cavity/pharynx/larynx Overall: oral mucosa clear 11/01/2017 None Full Exam - General 1994 Respiratory auscultation Overall: breath sounds clear bilaterally 11/01/2017 None Full Exam - General 1994 Respiratory respiratory effort/rhythm Overall: no retractions 11/01/2017 None Full Exam - General 1994 Respiratory respiratory effort/rhythm Overall: normal rate 11/01/2017 None Full Exam - General 1994 Cardiovascular extremities Overall: no clubbing 11/01/2017 None Full Exam - General 1994 Cardiovascular auscultation of heart Overall: regular rate 11/01/2017 None Full Exam - General 1994 Cardiovascular auscultation of heart Overall: normal heart sounds 11/01/2017 None Full Exam - General 1994 Cardiovascular auscultation of heart Overall: no murmurs 11/01/2017 None Full Exam - General 1994 Musculoskeletal gait and station Overall: normal gait 11/01/2017 None Full Exam - General 1994 Musculoskeletal gait and station Overall: normal station 11/01/2017 None Full Exam - General 1994 Musculoskeletal head and neck Overall: head atraumatic 11/01/2017 None Full Exam - General 1994 Musculoskeletal head and neck Overall: cervical spine benign 11/01/2017 None Full Exam - General 1994 Neurologic cranial nerves Overall: crainial nerves 2 - 12 grossly intact 11/01/2017 None Full Exam - General 1994 Psychiatric orientation/consciousness Overall: oriented to person, place and time 11/01/2017 None Full Exam - General 1994 Abdomen abdominal exam Overall: no tenderness 11/01/2017 None Full Exam - General 1994 Abdomen abdominal exam Overall: normal bowel sounds 11/01/2017 None Full Exam - General 1994 Constitutional general appearance Overall: well developed 07/24/2017 None Full Exam - General 1994 Constitutional general appearance Overall: in no acute distress 07/24/2017 None Full Exam - General 1994 Constitutional general appearance Overall: well nourished 07/24/2017 None Full Exam - General 1994 Eyes conjunctiva /eyelids Overall: conjunctiva clear 07/24/2017 None Full Exam - General 1994 Eyes pupils and irises Overall: pupils equal, round, reactive to light and accomodation 07/24/2017 None Full Exam - General 1994 Ears/Nose/Throat oral cavity/pharynx/larynx Overall: oral mucosa clear 07/24/2017 None Full Exam - General 1994 Respiratory auscultation Overall: breath sounds clear bilaterally 07/24/2017 None Full Exam - General 1994 Respiratory respiratory effort/rhythm Overall: no retractions 07/24/2017 None Full Exam - General 1994 Respiratory respiratory effort/rhythm Overall: normal rate 07/24/2017 None Full Exam - General 1994 Cardiovascular extremities Overall: no clubbing 07/24/2017 None Full Exam - General 1994 Cardiovascular auscultation of heart Overall: regular rate 07/24/2017 None Full Exam - General 1994 Cardiovascular auscultation of heart Overall: normal heart sounds 07/24/2017 None Full Exam - General 1994 Cardiovascular auscultation of heart Overall: no murmurs 07/24/2017 None Full Exam - General 1994 Musculoskeletal gait and station Overall: normal gait 07/24/2017 None Full Exam - General 1994 Musculoskeletal gait and station Overall: normal station 07/24/2017 None Full Exam - General 1994 Musculoskeletal head and neck Overall: head atraumatic 07/24/2017 None Full Exam - General 1994 Musculoskeletal head and neck Overall: cervical spine benign 07/24/2017 None Full Exam - General 1994 Neurologic cranial nerves Overall: crainial nerves 2 - 12 grossly intact 07/24/2017 None Full Exam - General 1994 Psychiatric orientation/consciousness Overall: oriented to person, place and time 07/24/2017 None Full Exam - General 1994 Ears/Nose/Throat lips/teeth/gingiva Overall: benign lips 07/24/2017 None Full Exam - General 1994 Constitutional general appearance Overall: well developed 07/06/2017 None Full Exam - General 1994 Constitutional general appearance Overall: in no acute distress 07/06/2017 None Full Exam - General 1994 Constitutional general appearance Overall: well nourished 07/06/2017 None Full Exam - General 1994 Eyes conjunctiva /eyelids Overall: conjunctiva clear 07/06/2017 None Full Exam - General 1994 Eyes pupils and irises Overall: pupils equal, round, reactive to light and accomodation 07/06/2017 None Full Exam - General 1994 Ears/Nose/Throat otoscopic exam Overall: external auditory canals clear 07/06/2017 None Full Exam - General 1994 Ears/Nose/Throat otoscopic exam Overall: tympanic membranes clear 07/06/2017 None Full Exam - General 1994 Ears/Nose/Throat oral cavity/pharynx/larynx Overall: oral mucosa clear 07/06/2017 None Full Exam - General 1994 Ears/Nose/Throat oral cavity/pharynx/larynx Overall: oropharyngeal mucosa clear 07/06/2017 None Full Exam - General 1994 Ears/Nose/Throat oral cavity/pharynx/larynx Overall: no masses 07/06/2017 None Full Exam - General 1994 Respiratory auscultation Overall: breath sounds clear bilaterally 07/06/2017 None Full Exam - General 1994 Respiratory respiratory effort/rhythm Overall: no retractions 07/06/2017 None Full Exam - General 1994 Respiratory respiratory effort/rhythm Overall: normal rate 07/06/2017 None Full Exam - General 1994 Cardiovascular extremities Overall: no clubbing 07/06/2017 None Full Exam - General 1994 Cardiovascular auscultation of heart Overall: regular rate 07/06/2017 None Full Exam - General 1994 Cardiovascular auscultation of heart Overall: normal heart sounds 07/06/2017 None Full Exam - General 1994 Cardiovascular auscultation of heart Overall: no murmurs 07/06/2017 None Full Exam - General 1994 Abdomen abdominal exam Overall: no tenderness 07/06/2017 None Full Exam - General 1994 Abdomen abdominal exam Overall: normal bowel sounds 07/06/2017 None Full Exam - General 1994 Musculoskeletal gait and station Overall: normal gait 07/06/2017 None Full Exam - General 1994 Musculoskeletal gait and station Overall: normal station 07/06/2017 None Full Exam - General 1994 Musculoskeletal head and neck Overall: head atraumatic 07/06/2017 None Full Exam - General 1994 Musculoskeletal head and neck Overall: cervical spine benign 07/06/2017 None Full Exam - General 1994 Neurologic cranial nerves Overall: crainial nerves 2 - 12 grossly intact 07/06/2017 None Full Exam - General 1994 Psychiatric orientation/consciousness Overall: oriented to person, place and time 07/06/2017 None Full Exam - ENT Constitutional general appearance Overall: well nourished 06/28/2017 None Full Exam - ENT Constitutional general appearance Overall: well developed 06/28/2017 None Full Exam - ENT Constitutional general appearance Overall: in no acute distress 06/28/2017 None Full Exam - ENT Ears/Nose/Throat otoscopic exam Overall: external auditory canals normal 06/28/2017 None Full Exam - ENT Ears/Nose/Throat otoscopic exam Left tympanic membrane: air -fluid level 06/28/2017 None Full Exam - ENT Ears/Nose/Throat otoscopic exam Right tympanic membrane: air-fluid level 06/28/2017 None Full Exam - ENT Ears/Nose/Throat lips/ teeth/gingiva Overall: benign lips 06/28/2017 None Full Exam - ENT Ears/Nose/Throat oropharynx Overall: oral mucosa clear 06/28/2017 None Full Exam - ENT Ears/Nose/Throat oropharynx Posterior Pharynx: clear post nasal drainage 06/28/2017 None Full Exam - ENT Ears/Nose/Throat oropharynx Posterior Pharynx: erythema 06/28/2017 None Full Exam - ENT Respiratory inspection Overall: no retractions 06/28/2017 None Full Exam - ENT Respiratory inspection Overall: normal rate None Full Exam - ENT Respiratory auscultation Overall: breath sounds clear bilaterally 06/28/2017 None Full Exam - ENT Cardiovascular auscultation of heart Rate: normal rate 06/28/2017 None Full Exam - ENT Cardiovascular auscultation of heart Rhythm: regular rhythm 06/28/2017 None Full Exam - ENT Lymphatic palpation of lymph nodes Overall: anterior cervical chain benign 06/28/2017 None Full Exam - ENT Lymphatic palpation of lymph nodes Overall: posterior cervical chain benign 06/28/2017 None Full Exam - ENT Neurologic mood and affect Overall: normal mood 06/28/2017 None Full Exam - ENT Neurologic mood and affect Overall: normal affect 06/28/2017 None Full Exam - ENT Neurologic orientation Overall: oriented to person, place and time 06/28/2017 None Full Exam - General 1994 Constitutional general appearance Overall: well developed 01/10/2017 None Full Exam - General 1994 Constitutional general appearance Overall: in no acute distress 01/10/2017 None Full Exam - General 1994 Constitutional general appearance Overall: well nourished 01/10/2017 None Full Exam - General 1995 Eyes conjunctiva /eyelids Overall: conjunctiva clear 01/10/2017 None Full Exam - General 1995 Eyes conjunctiva /eyelids Overall: eyelids normal 01/10/2017 None Full Exam - General 1995 Ears/Nose/Throat lips/teeth/gingiva Overall: benign lips 01/10/2017 None Full Exam - General 1995 Ears/Nose/Throat oral cavity/pharynx/larynx Overall: oral mucosa clear 01/10/2017 None Full Exam - General 1994 Respiratory respiratory effort/rhythm Overall: no retractions 01/10/2017 None Full Exam - General 1994 Respiratory respiratory effort/rhythm Overall: normal rate 01/10/2017 None Full Exam - General 1994 Musculoskeletal head and neck Overall: head atraumatic 01/10/2017 None Full Exam - General 1994 Neurologic cranial nerves Overall: crainial nerves 2 - 12 grossly intact 01/10/2017 None Full Exam - General 1994 Psychiatric orientation/consciousness Overall: oriented to person, place and time 01/10/2017 None Full Exam - General 1994 Psychiatric mood and affect Overall: normal mood and affect 01/10/2017 None Full Exam - General 1994 Psychiatric appearance Overall: well-groomed, good eye contact 01/10/2017 None Full Exam - General 1994 Constitutional general appearance Overall: well developed 01/02/2017 None Full Exam - General 1994 Constitutional general appearance Overall: in no acute distress 01/02/2017 None Full Exam - General 1994 Constitutional general appearance Overall: well nourished 01/02/2017 None Full Exam - General 1994 Eyes conjunctiva /eyelids Overall: conjunctiva clear 01/02/2017 None Full Exam - General 1994 Eyes pupils and irises Overall: pupils equal, round, reactive to light and accomodation 01/02/2017 None Full Exam - General 1994 Ears/Nose/Throat otoscopic exam Overall: external auditory canals clear 01/02/2017 None Full Exam - General 1994 Ears/Nose/Throat otoscopic exam Overall: tympanic membranes clear 01/02/2017 None Full Exam - General 1994 Ears/Nose/Throat oral cavity/pharynx/larynx Overall: oral mucosa clear 01/02/2017 None Full Exam - General 1994 Ears/Nose/Throat oral cavity/pharynx/larynx Overall: oropharyngeal mucosa clear 01/02/2017 None Full Exam - General 1994 Ears/Nose/Throat oral cavity/pharynx/larynx Overall: no masses 01/02/2017 None Full Exam - General 1994 Respiratory auscultation Overall: breath sounds clear bilaterally 01/02/2017 None Full Exam - General 1994 Respiratory respiratory effort/rhythm Overall: no retractions 01/02/2017 None Full Exam - General 1994 Respiratory respiratory effort/rhythm Overall: normal rate 01/02/2017 None Full Exam - General 1994 Cardiovascular extremities Overall: no clubbing 01/02/2017 None Full Exam - General 1994 Cardiovascular auscultation of heart Overall: regular rate 01/02/2017 None Full Exam - General 1994 Cardiovascular auscultation of heart Overall: normal heart sounds 01/02/2017 None Full Exam - General 1994 Cardiovascular auscultation of heart Overall: no murmurs 01/02/2017 None Full Exam - General 1994 Musculoskeletal gait and station Overall: normal gait 01/02/2017 None Full Exam - General 1994 Musculoskeletal gait and station Overall: normal station 01/02/2017 None Full Exam - General 1994 Musculoskeletal head and neck Overall: head atraumatic 01/02/2017 None Full Exam - General 1994 Musculoskeletal head and neck Overall: cervical spine benign 01/02/2017 None Full Exam - General 1994 Psychiatric orientation/consciousness Overall: oriented to person, place and time 01/02/2017 None Full Exam - General 1994 Constitutional general appearance Overall: well developed 06/23/2016 None Full Exam - General 1994 Constitutional general appearance Overall: in no acute distress 06/23/2016 None Full Exam - General 1994 Constitutional general appearance Overall: well nourished 06/23/2016 None Full Exam - General 1994 Eyes conjunctiva /eyelids Overall: conjunctiva clear 06/23/2016 None Full Exam - General 1994 Eyes pupils and irises Overall: pupils equal, round, reactive to light and accomodation 06/23/2016 None Full Exam - General 1994 Ears/Nose/Throat otoscopic exam Overall: external auditory canals clear 06/23/2016 None Full Exam - General 1994 Ears/Nose/Throat otoscopic exam Overall: tympanic membranes clear 06/23/2016 None Full Exam - General 1994 Ears/Nose/Throat oral cavity/pharynx/larynx Overall: oral mucosa clear 06/23/2016 None Full Exam - General 1994 Ears/Nose/Throat oral cavity/pharynx/larynx Overall: oropharyngeal mucosa clear 06/23/2016 None Full Exam - General 1994 Ears/Nose/Throat oral cavity/pharynx/larynx Overall: no masses 06/23/2016 None Full Exam - General 1994 Respiratory auscultation Overall: breath sounds clear bilaterally 06/23/2016 None Full Exam - General 1994 Respiratory respiratory effort/rhythm Overall: no retractions 06/23/2016 None Full Exam - General 1994 Respiratory respiratory effort/rhythm Overall: normal rate 06/23/2016 None Full Exam - General 1994 Cardiovascular extremities Overall: no clubbing 06/23/2016 None Full Exam - General 1994 Cardiovascular auscultation of heart Overall: regular rate 06/23/2016 None Full Exam - General 1994 Cardiovascular auscultation of heart Overall: normal heart sounds 06/23/2016 None Full Exam - General 1994 Cardiovascular auscultation of heart Overall: no murmurs 06/23/2016 None Full Exam - General 1994 Musculoskeletal gait and station Overall: normal gait 06/23/2016 None Full Exam - General 1994 Musculoskeletal gait and station Overall: normal station 06/23/2016 None Full Exam - General 1994 Musculoskeletal head and neck Overall: head atraumatic 06/23/2016 None Full Exam - General 1994 Musculoskeletal head and neck Overall: cervical spine benign 06/23/2016 None Full Exam - General 1994 Psychiatric orientation/consciousness Overall: oriented to person, place and time 06/23/2016 None Full Exam - General 1994 Abdomen abdominal exam Overall: no tenderness 06/23/2016 None Full Exam - General 1994 Abdomen abdominal exam Overall: normal bowel sounds 06/23/2016 None Full Exam - General 1994 Integument inspection of skin Overall: no rash, lesions 06/23/2016 None Full Exam - General 1994 Neurologic deep tendon reflexes Overall: deep tendon reflexes intact 06/23/2016 None Full Exam - General 1994 Neurologic cranial nerves Overall: crainial nerves 2 - 12 grossly intact 06/23/2016 None Full Exam - General 1994 Constitutional general appearance Overall: well developed 05/19/2016 None Full Exam - General 1994 Constitutional general appearance Overall: in no acute distress 05/19/2016 None Full Exam - General 1994 Constitutional general appearance Overall: well nourished 05/19/2016 None Full Exam - General 1994 Eyes conjunctiva /eyelids Overall: conjunctiva clear 05/19/2016 None Full Exam - General 1994 Eyes pupils and irises Overall: pupils equal, round, reactive to light and accomodation 05/19/2016 None Full Exam - General 1994 Ears/Nose/Throat otoscopic exam Overall: external auditory canals clear 05/19/2016 None Full Exam - General 1994 Ears/Nose/Throat otoscopic exam Overall: tympanic membranes clear 05/19/2016 None Full Exam - General 1994 Ears/Nose/Throat oral cavity/pharynx/larynx Overall: oral mucosa clear 05/19/2016 None Full Exam - General 1994 Ears/Nose/Throat oral cavity/pharynx/larynx Overall: oropharyngeal mucosa clear 05/19/2016 None Full Exam - General 1994 Ears/Nose/Throat oral cavity/pharynx/larynx Overall: no masses 05/19/2016 None Full Exam - General 1994 Respiratory auscultation Overall: breath sounds clear bilaterally 05/19/2016 None Full Exam - General 1994 Respiratory respiratory effort/rhythm Overall: no retractions 05/19/2016 None Full Exam - General 1994 Respiratory respiratory effort/rhythm Overall: normal rate 05/19/2016 None Full Exam - General 1994 Cardiovascular extremities Overall: no clubbing 05/19/2016 None Full Exam - General 1994 Cardiovascular auscultation of heart Overall: regular rate 05/19/2016 None Full Exam - General 1994 Cardiovascular auscultation of heart Overall: normal heart sounds 05/19/2016 None Full Exam - General 1994 Cardiovascular auscultation of heart Overall: no murmurs 05/19/2016 None Full Exam - General 1994 Musculoskeletal gait and station Overall: normal gait 05/19/2016 None Full Exam - General 1994 Musculoskeletal gait and station Overall: normal station 05/19/2016 None Full Exam - General 1994 Musculoskeletal head and neck Overall: head atraumatic 05/19/2016 None Full Exam - General 1994 Musculoskeletal head and neck Overall: cervical spine benign 05/19/2016 None Full Exam - General 1994 Psychiatric orientation/consciousness Overall: oriented to person, place and time 05/19/2016 None Full Exam - General 1994 Constitutional general appearance Overall: well developed 02/25/2016 None Full Exam - General 1994 Constitutional general appearance Overall: in no acute distress 02/25/2016 None Full Exam - General 1994 Constitutional general appearance Overall: well nourished 02/25/2016 None Full Exam - General 1994 Eyes conjunctiva /eyelids Overall: conjunctiva clear 02/25/2016 None Full Exam - General 1994 Eyes pupils and irises Overall: pupils equal, round, reactive to light and accomodation 02/25/2016 None Full Exam - General 1994 Ears/Nose/Throat otoscopic exam Overall: external auditory canals clear 02/25/2016 None Full Exam - General 1994 Ears/Nose/Throat otoscopic exam Overall: tympanic membranes clear 02/25/2016 None Full Exam - General 1994 Ears/Nose/Throat oral cavity/pharynx/larynx Overall: oral mucosa clear 02/25/2016 None Full Exam - General 1994 Ears/Nose/Throat oral cavity/pharynx/larynx Overall: oropharyngeal mucosa clear 02/25/2016 None Full Exam - General 1994 Ears/Nose/Throat oral cavity/pharynx/larynx Overall: no masses 02/25/2016 None Full Exam - General 1994 Respiratory auscultation Overall: breath sounds clear bilaterally 02/25/2016 None Full Exam - General 1994 Respiratory respiratory effort/rhythm Overall: no retractions 02/25/2016 None Full Exam - General 1994 Respiratory respiratory effort/rhythm Overall: normal rate 02/25/2016 None Full Exam - General 1994 Cardiovascular extremities Overall: no clubbing 02/25/2016 None Full Exam - General 1994 Cardiovascular auscultation of heart Overall: regular rate 02/25/2016 None Full Exam - General 1994 Cardiovascular auscultation of heart Overall: normal heart sounds 02/25/2016 None Full Exam - General 1994 Cardiovascular auscultation of heart Overall: no murmurs 02/25/2016 None Full Exam - General 1994 Musculoskeletal gait and station Overall: normal gait 02/25/2016 None Full Exam - General 1994 Musculoskeletal gait and station Overall: normal station 02/25/2016 None Full Exam - General 1994 Musculoskeletal head and neck Overall: head atraumatic 02/25/2016 None Full Exam - General 1994 Musculoskeletal head and neck Overall: cervical spine benign 02/25/2016 None Full Exam - General 1994 Psychiatric orientation/consciousness Overall: oriented to person, place and time 02/25/2016 None Full Exam - General 1994 Constitutional general appearance Overall: well developed 11/24/2015 None Full Exam - General 1994 Constitutional general appearance Overall: in no acute distress 11/24/2015 None Full Exam - General 1994 Constitutional general appearance Overall: well nourished 11/24/2015 None Full Exam - General 1994 Eyes conjunctiva /eyelids Overall: conjunctiva clear 11/24/2015 None Full Exam - General 1994 Eyes pupils and irises Overall: pupils equal, round, reactive to light and accomodation 11/24/2015 None Full Exam - General 1994 Ears/Nose/Throat otoscopic exam Overall: external auditory canals clear 11/24/2015 None Full Exam - General 1994 Ears/Nose/Throat otoscopic exam Overall: tympanic membranes clear 11/24/2015 None Full Exam - General 1994 Ears/Nose/Throat oral cavity/pharynx/larynx Overall: oral mucosa clear 11/24/2015 None Full Exam - General 1994 Ears/Nose/Throat oral cavity/pharynx/larynx Overall: oropharyngeal mucosa clear 11/24/2015 None Full Exam - General 1994 Ears/Nose/Throat oral cavity/pharynx/larynx Overall: no masses 11/24/2015 None Full Exam - General 1994 Respiratory auscultation Overall: breath sounds clear bilaterally 11/24/2015 None Full Exam - General 1994 Respiratory respiratory effort/rhythm Overall: no retractions 11/24/2015 None Full Exam - General 1994 Respiratory respiratory effort/rhythm Overall: normal rate 11/24/2015 None Full Exam - General 1994 Cardiovascular extremities Overall: no clubbing 11/24/2015 None Full Exam - General 1994 Cardiovascular auscultation of heart Overall: regular rate 11/24/2015 None Full Exam - General 1994 Cardiovascular auscultation of heart Overall: normal heart sounds 11/24/2015 None Full Exam - General 1994 Cardiovascular auscultation of heart Overall: no murmurs 11/24/2015 None Full Exam - General 1994 Abdomen abdominal exam Overall: no tenderness 11/24/2015 None Full Exam - General 1994 Abdomen abdominal exam Overall: normal bowel sounds 11/24/2015 None Full Exam - General 1994 Lymphatic neck nodes Overall: anterior cervical chain benign 11/24/2015 None Full Exam - General 1994 Lymphatic neck nodes Overall: posterior cervical chain benign 11/24/2015 None Full Exam - General 1994 Musculoskeletal gait and station Overall: normal gait 11/24/2015 None Full Exam - General 1994 Musculoskeletal gait and station Overall: normal station 11/24/2015 None Full Exam - General 1994 Musculoskeletal head and neck Overall: head atraumatic 11/24/2015 None Full Exam - General 1994 Musculoskeletal head and neck Overall: cervical spine benign 11/24/2015 None Full Exam - General 1994 Integument inspection of skin Overall: no rash, lesions 11/24/2015 None Full Exam - General 1994 Neurologic deep tendon reflexes Overall: deep tendon reflexes intact 11/24/2015 None Full Exam - General 1994 Neurologic cranial nerves Overall: crainial nerves 2 - 12 grossly intact 11/24/2015 None Full Exam - General 1994 Psychiatric orientation/consciousness Overall: oriented to person, place and time 11/24/2015 None Full Exam - General 1994 Constitutional general appearance Overall: well developed 11/03/2015 None Full Exam - General 1994 Constitutional general appearance Overall: in no acute distress 11/03/2015 None Full Exam - General 1994 Constitutional general appearance Overall: well nourished 11/03/2015 None Full Exam - General 1994 Eyes conjunctiva /eyelids Overall: conjunctiva clear 11/03/2015 None Full Exam - General 1994 Eyes pupils and irises Overall: pupils equal, round, reactive to light and accomodation 11/03/2015 None Full Exam - General 1994 Ears/Nose/Throat otoscopic exam Overall: external auditory canals clear 11/03/2015 None Full Exam - General 1994 Ears/Nose/Throat otoscopic exam Overall: tympanic membranes clear 11/03/2015 None Full Exam - General 1994 Ears/Nose/Throat oral cavity/pharynx/larynx Overall: oral mucosa clear 11/03/2015 None Full Exam - General 1994 Ears/Nose/Throat oral cavity/pharynx/larynx Overall: oropharyngeal mucosa clear 11/03/2015 None Full Exam - General 1994 Ears/Nose/Throat oral cavity/pharynx/larynx Overall: no masses 11/03/2015 None Full Exam - General 1994 Respiratory auscultation Overall: breath sounds clear bilaterally 11/03/2015 None Full Exam - General 1994 Respiratory respiratory effort/rhythm Overall: no retractions 11/03/2015 None Full Exam - General 1994 Respiratory respiratory effort/rhythm Overall: normal rate 11/03/2015 None Full Exam - General 1994 Cardiovascular extremities Overall: no clubbing 11/03/2015 None Full Exam - General 1994 Cardiovascular auscultation of heart Overall: regular rate 11/03/2015 None Full Exam - General 1994 Cardiovascular auscultation of heart Overall: normal heart sounds 11/03/2015 None Full Exam - General 1994 Cardiovascular auscultation of heart Overall: no murmurs 11/03/2015 None Full Exam - General 1994 Abdomen abdominal exam Overall: no tenderness 11/03/2015 None Full Exam - General 1994 Abdomen abdominal exam Overall: normal bowel sounds 11/03/2015 None Full Exam - General 1994 Lymphatic neck nodes Overall: anterior cervical chain benign 11/03/2015 None Full Exam - General 1994 Lymphatic neck nodes Overall: posterior cervical chain benign 11/03/2015 None Full Exam - General 1994 Musculoskeletal gait and station Overall: normal gait 11/03/2015 None Full Exam - General 1994 Musculoskeletal gait and station Overall: normal station 11/03/2015 None Full Exam - General 1994 Musculoskeletal head and neck Overall: head atraumatic 11/03/2015 None Full Exam - General 1994 Musculoskeletal head and neck Overall: cervical spine benign 11/03/2015 None Full Exam - General 1994 Integument inspection of skin Overall: no rash, lesions 11/03/2015 None Full Exam - General 1994 Neurologic deep tendon reflexes Overall: deep tendon reflexes intact 11/03/2015 None Full Exam - General 1994 Neurologic cranial nerves Overall: crainial nerves 2 - 12 grossly intact 11/03/2015 None Full Exam - General 1994 Psychiatric orientation/consciousness Overall: oriented to person, place and time 11/03/2015 None Full Exam - General 1994 Psychiatric orientation/consciousness Overall: oriented to person, place and time 08/17/2015 None Full Exam - General 1994 Neurologic deep tendon reflexes Overall: deep tendon reflexes intact 08/17/2015 None Full Exam - General 1994 Neurologic cranial nerves Overall: crainial nerves 2 - 12 grossly intact 08/17/2015 None Full Exam - General 1994 Integument inspection of skin Overall: no rash, lesions 08/17/2015 None Full Exam - General 1994 Musculoskeletal gait and station Overall: normal station 08/17/2015 None Full Exam - General 1994 Musculoskeletal gait and station Overall: normal gait 08/17/2015 None Full Exam - General 1994 Musculoskeletal head and neck Overall: cervical spine benign 08/17/2015 None Full Exam - General 1994 Musculoskeletal head and neck Overall: head atraumatic 08/17/2015 None Full Exam - General 1994 Lymphatic neck nodes Overall: anterior cervical chain benign 08/17/2015 None Full Exam - General 1994 Lymphatic neck nodes Overall: posterior cervical chain benign 08/17/2015 None Full Exam - General 1994 Abdomen abdominal exam Overall: no tenderness 08/17/2015 None Full Exam - General 1994 Abdomen abdominal exam Overall: normal bowel sounds 08/17/2015 None Full Exam - General 1994 Cardiovascular auscultation of heart Overall: regular rate 08/17/2015 None Full Exam - General 1994 Cardiovascular auscultation of heart Overall: normal heart sounds 08/17/2015 None Full Exam - General 1994 Cardiovascular auscultation of heart Overall: no murmurs 08/17/2015 None Full Exam - General 1994 Cardiovascular extremities Overall: no clubbing 08/17/2015 None Full Exam - General 1994 Respiratory auscultation Overall: breath sounds clear bilaterally 08/17/2015 None Full Exam - General 1994 Respiratory respiratory effort/rhythm Overall: normal rate 08/17/2015 None Full Exam - General 1994 Respiratory respiratory effort/rhythm Overall: no retractions 08/17/2015 None Full Exam - General 1994 Ears/Nose/Throat otoscopic exam Overall: tympanic membranes clear 08/17/2015 None Full Exam - General 1994 Ears/Nose/Throat otoscopic exam Overall: external auditory canals clear 08/17/2015 None Full Exam - General 1994 Ears/Nose/Throat oral cavity/pharynx/larynx Overall: oropharyngeal mucosa clear 08/17/2015 None Full Exam - General 1994 Ears/Nose/Throat oral cavity/pharynx/larynx Overall: no masses 08/17/2015 None Full Exam - General 1994 Ears/Nose/Throat oral cavity/pharynx/larynx Overall: oral mucosa clear 08/17/2015 None Full Exam - General 1994 Neck thyroid Overall: normal size None Full Exam - General 1994 Eyes conjunctiva /eyelids Overall: conjunctiva clear 08/17/2015 None Full Exam - General 1994 Eyes pupils and irises Overall: pupils equal, round, reactive to light and accomodation 08/17/2015 None Full Exam - General 1994 Constitutional general appearance Overall: well developed 08/17/2015 None Full Exam - General 1994 Constitutional general appearance Overall: in no acute distress 08/17/2015 None Full Exam - General 1994 Constitutional general appearance Overall: well nourished 08/17/2015 None Procedures Procedure Codes Date TRIAMCINOLONE ACET INJ NOS CPT-4: J3301 06/28/2017 ROCEPHIN, PER 250 MG CPT-4: J0696 06/28/2017 THER/PROPH/DIAG INJ SC/IM CPT-4: 82327 06/28/2017 PPPS, SUBSEQ VISIT CPT -4: G0439 01/10/2017 Vital Signs Date Vital 03/08/2018 Blood Pressure 1: 130/70 Code : 8480-6 BMI: 25.8 Code : 19365-9 Heart Rate 1 : 62 bpm Height: 5'5" SpO2: 96% Weight: 155 lbs 11/01/2017 Blood Pressure 1: 140/78 Code : 8480-6 BMI: 25.5 Code : 97948-9 Heart Rate 1 : 67 bpm Height: 5'5" SpO2: 98% Weight: 153 lbs 07/24/2017 Blood Pressure 1: 140/66 Code : 8480-6 BMI: 25.3 Code : 40008-3 Heart Rate 1 : 67 bpm Height: 5'5" SpO2: 98% Weight: 152 lbs 07/06/2017 Blood Pressure 1: 126/74 Code : 8480-6 BMI: 25.3 Code : 02166-4 Heart Rate 1 : 70 bpm Height: 5'5" SpO2: 95% Weight: 152 lbs 06/28/2017 Blood Pressure 1: 126/64 Code : 8480-6 BMI: 25.3 Code : 48487-9 Heart Rate 1 : 58 bpm Height: 5'5" SpO2: 97% Temperature: 36.8 (C) / 98.3 (F) Weight: 152 lbs 01/10/2017 BMI: 25.8 Code: 48476-4 Height: 5'5" Weight: 155 lbs 01/02/2017 Blood Pressure 1: 138/78 Code : 8480-6 BMI: 25.8 Code : 62266-7 Heart Rate 1 : 58 bpm Height: 5'5" SpO2: 98% Weight: 155 lbs 06/23/2016 Blood Pressure 1: 138/78 Code : 8480-6 BMI: 25.8 Code : 04949-4 Height: 5'5" Weight: 155 lbs 05/19/2016 Blood Pressure 1: 138/80 Code : 8480-6 BMI: 25.6 Code : 91234-5 Heart Rate 1 : 61 bpm Height: 5'5" SpO2: 98% Weight: 154 lbs 02/25/2016 Blood Pressure 1: 158/82 Code : 8480-6 BMI: 24.9 Code : 74685-5 Heart Rate 1 : 66 bpm Height: 5'5" SpO2: 97% Weight: 149 lbs 8 oz 11/24/2015 Blood Pressure 1: 132/70 Code : 8480-6 BMI: 24.8 Code : 15563-4 Heart Rate 1 : 71 bpm Height: 5'5" SpO2: 98% Weight: 149 lbs 11/03/2015 Blood Pressure 1: 140/80 Code : 8480-6 Blood Pressure 1: 150/80 Code: 8480-6 BMI: 24.8 Code: 47024-6 Heart Rate 1: 71 bpm Height: 5'5" SpO2: 96% Weight: 149 lbs 08/17/2015 Blood Pressure 1: 140/80 Code : 8480-6 BMI: 24.3 Code : 38229-7 Heart Rate 1 : 63 bpm Height: 5'5" SpO2: 99% Weight: 146 lbs Functional Status No Functional Status data History of Present Illness Symptom Name Status Result Effective Date Notes hypertension Quality chronic 03/08/2018 None hypertension Quality intermittent 03/08/2018 None hypertension Quality primary hypertension 03/08/2018 None hypertension Onset and Resolution ongoing 03/08/2018 None hypertension Onset of Symptom during adulthood 03/08/2018 None hypertension Blood Pressure Values patient checking blood pressure at home - did not bring in readings 03/08/2018 None hypertension Alleviating Factors medication 03/08/2018 None hypertension Pertinent Findings dizziness 03/08/2018 if she bends over hypertension Pertinent Findings dyspnea 03/08/2018 if she bends over hypertension Pertinent Findings edema 03/08/2018 in her right leg hypertension Onset and Resolution ongoing 11/01/2017 None hypertension Onset of Symptom during adulthood 11/01/2017 None hypertension Blood Pressure Values patient checking blood pressure at home - did not bring in readings 11/01/2017 None hypertension Alleviating Factors medication 11/01/2017 None hypertension Pertinent Findings dizziness 11/01/2017 if she bends over hypertension Pertinent Findings dyspnea 11/01/2017 if she bends over hypertension Pertinent Findings edema 11/01/2017 in her right leg hypertension Quality primary hypertension 11/01/2017 None hypertension Quality chronic 11/01/2017 None cough Quality intermittent 11/01/2017 None cough Onset and Resolution ongoing 11/01/2017 None cough Onset of Symptom 4+ months ago 11/01/2017 None cough Exacerbating Factors position change 11/01/2017 (laying down) cough Pertinent Findings Denies sputum production 11/01/2017 None hypertension Quality intermittent 11/01/2017 None cough Quality acute None cough Triggers no known associated factors 11/01/2017 None medication follow up Additional Comments medication use 07/24/2017 None medication follow up Additional Comments medication: synthroid 07/24/2017 None medication follow up Location oral intake 07/24/2017 None hypertension Quality intermittent 07/06/2017 None hypertension Onset and Resolution ongoing 07/06/2017 None hypertension Onset of Symptom during adulthood 07/06/2017 None hypertension Blood Pressure Values patient checking blood pressure at home - did not bring in readings 07/06/2017 -Checks occasionally- She said it could be 108-118 systolic in the afternoon. hypertension Alleviating Factors medication 07/06/2017 None hypertension Pertinent Findings Denies dizziness 07/06/2017 None hypertension Pertinent Findings Denies dyspnea 07/06/2017 at times hypertension Pertinent Findings edema 07/06/2017 in her right leg- hurts more at nighttime cough Location in the throat 06/28/2017 None cough Location in the lung 06/28/2017 None cough Location in the larynx 06/28/2017 None cough Quality acute None cough Quality intermittent 06/28/2017 None cough Quality productive 06/28/2017 None cough Onset and Resolution sudden in onset 06/28/2017 None cough Onset and Resolution ongoing 06/28/2017 None cough Onset of Symptom 1 weeks ago 06/28/2017 None cough Limitation on Activities does not limit activities 06/28/2017 None cough Pertinent Findings chest discomfort 06/28/2017 None cough Pertinent Findings fever 06/28/2017 None cough Pertinent Findings hoarseness 06/28/2017 None cough Pertinent Findings nasal congestion 06/28/2017 None cough Pertinent Findings post nasal drip 06/28/2017 None cough Pertinent Findings muscle aches 06/28/2017 None cough Pertinent Findings purulent sputum 06/28/2017 None cough Pertinent Findings sputum production 06/28/2017 None cough Pertinent Findings weakness 06/28/2017 None cough Pertinent Findings vomiting 06/28/2017 None Annual Medicare Wellness Exam Alcohol Use does not drink any alcohol 01/10/2017 None Annual Medicare Wellness Exam Aspirin Use no 01/10/2017 None Annual Medicare Wellness Exam Blood Glucose (self reported) don't know 01/10/2017 None Annual Medicare Wellness Exam Blood Pressure (self reported ) borderline (120/80 - 139/89) 01/10/2017 None Annual Medicare Wellness Exam Cholesterol (self reported) borderline high (200-239) 01/10/2017 None Annual Medicare Wellness Exam Depression (last 6 months) some of the time 01/10/2017 None Annual Medicare Wellness Exam Depression or Hopelessness almost never 01/10/2017 None Annual Medicare Wellness Exam Describe Your Health excellent 01/10/2017 None Annual Medicare Wellness Exam Exercise Habits exercises 7 days per week 01/10/2017 None Annual Medicare Wellness Exam Handling Stress usually soha effectively 01/10/2017 None Annual Medicare Wellness Exam Hemaglobin A-1C (self reported ) don't know 01/10/2017 None Annual Medicare Wellness Exam Hours of Sleep 7-8 01/10/2017 None Annual Medicare Wellness Exam Interaction with Friends yes 01/10/2017 None Annual Medicare Wellness Exam Interests & Pleasure most of the time 01/10/2017 None Annual Medicare Wellness Exam Life Satisfaction satisfied 01/10/2017 None Annual Medicare Wellness Exam Motor Vehicle Safety always fastens seat belt: y 01/10/2017 None Annual Medicare Wellness Exam Nutrition servings of vegetables / fruit per day: 3-6 servings 2016 None Annual Medicare Wellness Exam Smoking and Tobacco Use non smoker 01/10/2017 None Annual Medicare Wellness Exam Social & Emotional Support usually 01/10/2017 None Annual Medicare Wellness Exam Stress almost never 01/10/2017 None Annual Medicare Wellness Exam Sun Exposure protects skin when outdoors: n 01/10/2017 None hypertension Quality intermittent 01/02/2017 None hypertension Onset and Resolution ongoing 01/02/2017 None hypertension Onset of Symptom during adulthood 01/02/2017 None hypertension Blood Pressure Values patient checking blood pressure at home - did not bring in readings 01/02/2017 -Checks occasionally- She said it could be 108-118 systolic in the afternoon. hypertension Alleviating Factors medication 01/02/2017 None hypertension Pertinent Findings Denies dizziness 01/02/2017 None hypertension Pertinent Findings Denies dyspnea 01/02/2017 at times hypertension Pertinent Findings edema 01/02/2017 in her right leg- hurts more at nighttime hypertension Quality intermittent 06/23/2016 None hypertension Onset and Resolution ongoing 06/23/2016 None hypertension Onset of Symptom during adulthood 06/23/2016 None hypertension Blood Pressure Values patient checking blood pressure at home - did not bring in readings 06/23/2016 -Checks occasionally- She reports that her systolic BP mostly stays in the 150s hypertension Alleviating Factors medication 06/23/2016 None hypertension Pertinent Findings Denies dizziness 06/23/2016 None hypertension Pertinent Findings dyspnea 06/23/2016 at times hypertension Pertinent Findings edema 06/23/2016 in her right leg- hurts more at nighttime depression Quality intermittent 06/23/2016 None depression Onset and Resolution ongoing 06/23/2016 None depression Onset of Symptom during adulthood 06/23/2016 None depression Limitation on Activities moderately limits activities 06/23/2016 None depression Alleviating Factors medication 06/23/2016 None depression Pertinent Findings depressed mood 06/23/2016 None joint complaint Quality acute 06/23/2016 None joint complaint Quality tenderness 06/23/2016 None joint complaint Onset and Resolution ongoing 06/23/2016 None joint complaint Onset of Symptom 1 months ago 06/23/2016 None joint complaint Triggers no known associated factors 06/23/2016 None hypertension Quality intermittent 05/19/2016 None hypertension Onset and Resolution ongoing 05/19/2016 None hypertension Onset of Symptom during adulthood 05/19/2016 None hypertension Alleviating Factors medication 05/19/2016 None hypertension Pertinent Findings Denies dizziness 05/19/2016 None hypertension Pertinent Findings dyspnea 05/19/2016 at times hypertension Pertinent Findings edema 05/19/2016 in her right leg- hurts more at nighttime depression Onset and Resolution ongoing 05/19/2016 None depression Onset of Symptom during adulthood 05/19/2016 None depression Limitation on Activities moderately limits activities 05/19/2016 None depression Pertinent Findings depressed mood 05/19/2016 None hypertension Blood Pressure Values patient checking blood pressure at home - did not bring in readings 05/19/2016 -Checks occasionally- She reports that her systolic BP mostly stays in the 150s depression Quality intermittent 05/19/2016 None depression Alleviating Factors medication 05/19/2016 None joint complaint Quality acute 05/19/2016 None joint complaint Onset of Symptom 1 months ago 05/19/2016 None joint complaint Onset and Resolution ongoing 05/19/2016 None joint complaint Quality tenderness 05/19/2016 None joint complaint Triggers no known associated factors 05/19/2016 None hypertension Alleviating Factors medication 02/25/2016 None hypertension Pertinent Findings Denies dizziness 02/25/2016 -only when she gets up quickly hypertension Pertinent Findings Denies dyspnea 02/25/2016 None hypertension Pertinent Findings edema 02/25/2016 None depression Onset and Resolution ongoing 02/25/2016 None depression Onset of Symptom during adulthood 02/25/2016 None depression Limitation on Activities moderately limits activities 02/25/2016 None depression Triggers no known associated factors 02/25/2016 None depression Pertinent Findings depressed mood 02/25/2016 None hypertension Quality intermittent 02/25/2016 None hypertension Onset and Resolution ongoing 02/25/2016 None hypertension Onset of Symptom during adulthood 02/25/2016 None hypertension Blood Pressure Values not checking blood pressure at home 02/25/2016 None depression Quality worsening 02/25/2016 None depression Quality intermittent 11/24/2015 None depression Onset and Resolution ongoing 11/24/2015 None depression Onset of Symptom during adulthood 11/24/2015 None depression Limitation on Activities moderately limits activities 11/24/2015 None depression Triggers no known associated factors 11/24/2015 None depression Pertinent Findings depressed mood 11/24/2015 None hypertension Alleviating Factors medication 11/24/2015 None hypertension Blood Pressure Values patient checking blood pressure at home - did not bring in readings 11/24/2015 None hypertension Pertinent Findings edema 11/24/2015 in the right ankle hypertension Pertinent Findings Denies dizziness 11/24/2015 None hypertension Pertinent Findings dyspnea 11/24/2015 occasionally hypertension Quality improving 11/24/2015 None nocturia Onset of Symptom 1 years ago 11/03/2015 None nocturia Frequency of Episodes 3 times a night 11/03/2015 None nocturia Pertinent Findings back pain 11/03/2015 goes to a chiropractor nocturia Pertinent Findings Denies urinary urgency 11/03/2015 None insomnia Quality disrupted sleep 11/03/2015 -reports that when she gets upset she has a hard time going to sleep- she cannot turn her mind off insomnia Quality intermittent 11/03/2015 None insomnia Onset of Symptom 1 years ago 11/03/2015 None insomnia Pertinent Findings depressed mood 11/03/2015 None depression Quality intermittent 11/03/2015 None depression Onset and Resolution ongoing 11/03/2015 None depression Onset of Symptom during adulthood 11/03/2015 None depression Limitation on Activities moderately limits activities 11/03/2015 None depression Frequency of Episodes increasing 11/03/2015 None depression Triggers no known associated factors 11/03/2015 None depression Pertinent Findings depressed mood 11/03/2015 None edema Quality intermittent 11/03/2015 None edema Location on the right leg 11/03/2015 None nocturia Onset of Symptom 1 years ago 08/17/2015 None nocturia Frequency of Episodes 3 times a night 08/17/2015 None nocturia Pertinent Findings back pain 08/17/2015 goes to a chiropractor nocturia Pertinent Findings Denies urinary urgency 08/17/2015 None insomnia Quality intermittent 08/17/2015 None insomnia Quality disrupted sleep 08/17/2015 she reports not able to turn her mind off insomnia Onset of Symptom 1 years ago 08/17/2015 None insomnia Pertinent Findings depressed mood 08/17/2015 None depression Quality intermittent 08/17/2015 None depression Pertinent Findings depressed mood 08/17/2015 None depression Onset and Resolution ongoing 08/17/2015 None depression Onset of Symptom during adulthood 08/17/2015 None depression Limitation on Activities moderately limits activities 08/17/2015 None depression Frequency of Episodes increasing 08/17/2015 None depression Triggers no known associated factors 08/17/2015 None Advance Directives No Advance Directive data Encounters Encounter Performer Location Codes Date (213 EST. PATIENT, LEVEL III Diagnosis: Essential (primary) hypertension[ICD10: I10] Dilma Tran MD, [facility] CPT-4: 10842 03/08/2018 ([id number]) 84938 EST. PATIENT, LEVEL III Diagnosis: Essential (primary) hypertension[ICD10: I10] Diagnosis: Gastro-esophageal reflux disease without esophagitis[ICD10: K21.9] Dilma Tran MD, [facility] CPT-4: 99372 11/01/2017 82350 EST. PATIENT, LEVEL III Diagnosis: Other specified hypothyroidism[ICD10: E03.8] Diagnosis: Major depressive disorder, single episode, unspecified[ICD10: F32.9] April Tran MD, [facility] CPT-4: 62632 07/24/2017 ([id number]) 53295 EST. PATIENT, LEVEL III Diagnosis: Essential (primary) hypertension[ICD10: I10] Dilma Tran MD, [facility] CPT-4: 49477 07/06/2017 80408 EST. PATIENT, LEVEL III Diagnosis: Acute laryngopharyngitis[ICD10: J06.0] Diagnosis: Other allergic rhinitis[ICD10: J30.89] April Tran MD, [facility] CPT-4: 08028 06/28/2017 ([id number]) 75867 EST. PATIENT, LEVEL IV Diagnosis: Essential (primary) hypertension[ICD10: I10] Diagnosis: Major depressive disorder, single episode, mild[ICD10: F32.0] Diagnosis: Generalized anxiety disorder[ICD10: F41.1] Dilma Tran MD, [facility] CPT-4: 96993 01/02/2017 ([id number]) 65664 EST. PATIENT, LEVEL III Diagnosis: Essential (primary) hypertension[ICD10: I10] Diagnosis: Generalized anxiety disorder[ICD10: F41.1] Dilma Tran MD, [facility] CPT-4: 96306 06/23/2016 ([id number]) 84604 EST. PATIENT, LEVEL III Diagnosis: Essential (primary) hypertension[ICD10: I10] Diagnosis: Major depressive disorder, single episode, mild[ICD10: F32.0] Dilma Tran MD, [facility] CPT-4: 77160 05/19/2016 ([id number]) 13794 EST. PATIENT, LEVEL IV Diagnosis: Essential (primary) hypertension[ICD10: I10] Diagnosis: Localized edema[ICD10: R60.0] Diagnosis: Generalized anxiety disorder[ICD10: F41.1] Dilma Tran MD, [facility] CPT-4: 69068 02/25/2016 ([id number]) 31335 EST. PATIENT, LEVEL IV Diagnosis: Essential (primary) hypertension[ICD10: I10] Diagnosis: Major depressive disorder, single episode, unspecified[ICD10: F32.9] Diagnosis: Generalized anxiety disorder[ICD10: F41.1] Dilma Tran MD, [facility] CPT-4: 56044 11/24/2015 ([id number]) 23592 EST. PATIENT, LEVEL IV Diagnosis: Essential (primary) hypertension[ICD10: I10] Diagnosis: Major depressive disorder, single episode, unspecified[ICD10: F32.9] Dilma Tran MD, [facility] CPT-4: 17462 11/03/2015 ([id number]) OFFICE VISIT, NEW - LEVEL 4 Diagnosis: Generalized anxiety disorder[ICD10: F41.1] Diagnosis: Major depressive disorder, single episode, unspecified[ICD10: F32.9] Diagnosis: Vitamin D deficiency, unspecified[ICD10: E55.9] Diagnosis: Iron deficiency anemia, unspecified[ICD10: D50.9] Diagnosis: Unspecified osteoarthritis, unspecified site[ICD10: M19.90] Georgette Tran MD, [facility] CPT-4: 41588 08/17/2015 Plan of Care Planned Activity Notes Codes Status Date Visit Plan: Hypertension - well controlled - continue with current medications, continue with no added salt diet. Pt has been encouraged to exercise daily. The pt has been advised to call the office if there are any acute concerns about change in blood pressure readings at home. 03/08/2018 Appointment: Dilma Tran WPtel: [phone] [facility] (15 min) Moderate 03/08/2018 Patient Education: Patient Medication Summary Completed 03/08/2018 Patient Education: Patient Medication Summary Completed 03/02/2018 Visit Plan: Hypertension - well controlled - continue with current medications, continue with no added salt diet. Pt has been encouraged to exercise daily. The pt has been advised to call the office if there are any acute concerns about change in blood pressure readings at home. Esophageal Reflux - the patient has been counseled against excessive intake of caffeine, spicy foods, peppermint, and cinnamon - all of which can exacerbate esophageal reflux. The patient is to take medications as prescribed and call the office if the symptoms are not improving. 11/01/2017 Appointment: Dilma Tran WPtel: [phone] [facility] (15 min) Moderate 11/01/2017 Patient Education: Patient Medication Summary Completed 11/01/2017 Patient Education: Patient Medication Summary Completed 10/16/2017 Visit Plan: Chronic Depression and anxiety - the pt has symptoms of chronic anxiety and depression that have been fairly well controlled since the last office visit. The pt has expected periods of exacerbation with abatement of the symptoms with change in situational exposure. No change in current medications. Hypothyroidism - pt with chronic hypothyroidism, continue with current medication, will monitor pt to signs or symptoms of lack of adequate supplementation. Pt is to continue with current dose of medication unless directed otherwise. Check labs at regular intervals wither q 3 months or q 6 months based on previous levels of control. 07/24/2017 Appointment: April Wallace WPtel: [phone] [facility] (30 min) Complex 07/24/2017 Patient Education: Patient Medication Summary Completed 07/24/2017 Visit Plan: Hypertension - well controlled - continue with current medications, continue with no added salt diet. Pt has been encouraged to exercise daily. The pt has been advised to call the office if there are any acute concerns about change in blood pressure readings at home. 07/06/2017 Appointment: LangleyDilma WPtel: [phone] (15 min) Moderate 07/06/2017 Patient Education: Patient Medication Summary Completed 07/06/2017 Visit Plan: URI - Pt advised to increase fluids, vitamin C. Discussed natural and expected course of this diagnosis and need to alert me if symptoms do not follow expected course, or if any worse. RX sent to patient' s pharmacy. Allergies - chronic - recommended pt to use allergy medication as prescribed. Pt has been counseled as to the appropriate use of the medication. Pt to call if allergy symptoms are not controlled with the medication. If using nasal spray, instructions as follows: Nasal spray- use twice daily, one spray per nostril twice daily, after 30 minutes, rinse out nose with saline spray.. Use opposite hand per nostril to spray in the nasal steroid allergy spray. 06/28/2017 Appointment: April Wallace WPtel: [phone] (15 min) Moderate 06/28/2017 Patient Education: Patient Medication Summary Completed 06/28/2017 Patient Education: Patient Medication Summary Completed 04/19/2017 Patient Education: Patient Medication Summary Completed 01/27/2017 Visit Plan: Medicare Exam - today we discussed the patients past history, immunizations, preventative exams/evaluations - colonoscopy, fecal occult blood testing, routine labs for renal function, glucose, cholesterol, osteoporosis evaluations, cardiovascular testing and cancer screenings. We have also discussed mental health and the signs/symptoms of depression. The patient was advised of home safety evaluations and the need to make sure that as the aging process continues, we need to be aware of different ways to make the home a safer place to reside. The patient has also been counseled that exercise is necessary - and of utmost importance as we age to help decrease fall risk and to maintain independence in the home. Today we discussed the need for the patient to create paperwork for Advanced directives as well as for the patient to provide this office with a copy of her DOP[employer] paperwork for health care surrogate. 01/10/2017 Appointment: April Wallace WPtel: [phone] - Annual Wellness Visit 01/10/2017 Patient Education: Patient Medication Summary Completed 01/10/2017 Visit Plan: Hypertension - well controlled - continue with current medications, continue with no added salt diet. Pt has been encouraged to exercise daily. The pt has been advised to call the office if there are any acute concerns about change in blood pressure readings at home. Chronic Depression and anxiety - the pt has symptoms of chronic anxiety and depression that have been fairly well controlled since the last office visit. The pt has expected periods of exacerbation with abatement of the symptoms with change in situational exposure. No change in current medications. 01/02/2017 Appointment: [facility]: [phone] (15 min) Moderate 01/02/2017 Patient Education: Patient Medication Summary Completed 01/02/2017 Referral: Imelda Lyn Patient informed. Referral info faxed. Completed Visit Plan: Hypertension - well controlled - continue with current medications, continue with no added salt diet. Pt has been encouraged to exercise daily. The pt has been advised to call the office if there are any acute concerns about change in blood pressure readings at home. Chronic Depression and anxiety - the pt has symptoms of chronic anxiety and depression that have been fairly well controlled since the last office visit. The pt has expected periods of exacerbation with abatement of the symptoms with change in situational exposure. No change in current medications. 06/23/2016 Appointment: [facility]an [facility]: [phone] (15 min) Moderate 06/23/2016 Patient Education: Patient Medication Summary Completed 06/23/2016 Care Plan: Referral Order SNOMED-CT : [id number] Pending 06/23/2016 Visit Plan: Hypertension - uncontrolled - the patient's medications have been modified as documented in the visit note. The patient has been counseled to cut back on salt in diet for a no added salt diet, low fat diet, start an exercise program with low weight bearing exercises and higher aerobic activity for heart health. The patient is to check blood pressure readings as an outpatient and either fax, call, or email the readings to the office next week for practitioner to review. The pt is to call for acute concerns. increase losartan to 100mg/12.5mg daily. 05/19/2016 Appointment: Dil[facility] Tran [facility]el: [phone] (15 min) Moderate 05/19/2016 Patient Education: Patient Medication Summary Completed 05/19/2016 Visit Plan: Hypertension - uncontrolled - the patient's medications have been modified as documented in the visit note. The patient has been counseled to cut back on salt in diet for a no added salt diet, low fat diet, start an exercise program with low weight bearing exercises and higher aerobic activity for heart health. The patient is to check blood pressure readings as an outpatient and either fax, call, or email the readings to the office next week for practitioner to review. The pt is to call for acute concerns. Edema - pt has been advised to elevate legs to prevent dependent edema , compression has been recommended to help to naturally decrease peripheral edema. Diuretic use has been discussed and pt has been instructed in appropriate use of such medication as necessary to further attempt to reduce peripheral edema. Anxiety and Depression - increase lexapro from 1/2 tablet to a full tablet daily. 02/25/2016 Appointment: Dilma Tran [facility]Ptel: [id number] (15 min) Moderate 02/25/2016 Patient Education: Patient Medication Summary Completed 02/25/2016 Patient Education: Hypertension Completed 02/25/2016 Visit Plan: Hypertension - well controlled - continue with current medications, continue with no added salt diet. Pt has been encouraged to exercise daily. The pt has been advised to call the office if there are any acute concerns about change in blood pressure readings at home. Chronic Depression and anxiety - the pt has symptoms of chronic anxiety and depression that have been fairly well controlled since the last office visit. The pt has expected periods of exacerbation with abatement of the symptoms with change in situational exposure. No change in current medications. 11/24/2015 Patient Education: Patient Medication Summary Completed 11/24/2015 Patient Education: Hypertension Completed 11/24/2015 Visit Plan: Hypertension - uncontrolled - the patient's medications have been modified as documented in the visit note. The patient has been counseled to cut back on salt in diet for a no added salt diet, low fat diet, start an exercise program with low weight bearing exercises and higher aerobic activity for heart health. The patient is to check blood pressure readings as an outpatient and either fax, call, or email the readings to the office next week for practitioner to review. The pt is to call for acute concerns. Depression - uncontrolled - Pt has been counseled about the diagnosis of depression, the potential causes, and risks associated with the diagnosis. The pt denies suicidal ideation, or plans. The patient has been counseled about treatment options, and understands the risks associated with treatment of depression, as well as the risks associated with NOT treating the depression. I believe the pt will benefit from medical intervention and an antidepressant has been appropriately prescribed for this patient. 11/03/2015 Appointment: Dilma Tran [facility]Ptel: [id number] (15 min) Moderate 11/03/2015 Patient Education: Patient Medication Summary Completed 11/03/2015 Patient Education: Hypertension Completed 11/03/2015 Patient Education: Patient Medication Summary Completed 08/21/2015 Visit Plan: [id number] not taking any medications at this time-will recheck vitamin d level and proceed as indicated- instructed patient to call if symptoms worsen. Plan to follow up in 1 month to re-evaluate. Consider SSRI if symptoms do not improve or if any worse. Patient verbalized understanding of plan. Iron deficiency anemia-check labs today Vitamin D deficiency-check level today 08/17/2015 Appointment: New Patient 08/17/2015 Patient Education: Patient Medication Summary Completed 08/17/2015 Referral: Imelda Lyn Referral Appointment Requested Instructions Comment . Hypertension - well controlled - continue with current medications, continue with no added salt diet. Pt has been encouraged to exercise daily. The pt has been advised to call the office if there are any acute concerns about change in blood pressure readings at home. Chronic Depression and anxiety - the pt has symptoms of chronic anxiety and depression that have been fairly well controlled since the last office visit. The pt has expected periods of exacerbation with abatement of the symptoms with change in situational exposure. No change in current medications. increase your lexapro to 10mg twice daily - this is half of a 20mg pill twice daily. on your current blood pressure pills, take two daily and then when you get your new medication from the pharmacy - go back to one pill daily - it is a more potent version of your current medication. take two advil or ibuprofen three times daily x 2 weeks then twice daily - make sure to take it with food . Hypertension - uncontrolled - the patient's medications have been modified as documented in the visit note. The patient has been counseled to cut back on salt in diet for a no added salt diet, low fat diet, start an exercise program with low weight bearing exercises and higher aerobic activity for heart health. The patient is to check blood pressure readings as an outpatient and either fax , call, or email the readings to the office next week for practitioner to review. The pt is to call for acute concerns. increase losartan to 100mg/12.5mg daily. . Chronic Depression and anxiety - the pt has symptoms of chronic anxiety and depression that have been fairly well controlled since the last office visit. The pt has expected periods of exacerbation with abatement of the symptoms with change in situational exposure. No change in current medications. Hypothyroidism - pt with chronic hypothyroidism, continue with current medication, will monitor pt to signs or symptoms of lack of adequate supplementation. Pt is to continue with current dose of medication unless directed otherwise. Check labs at regular intervals wither q 3 months or q 6 months based on previous levels of control. Steroid and antibiotic shot today Start prescriptions tomorrow. Take prednisone in the morning because it can make you a little jittery and keep you up. Take a probiotic (culturelle, [employer] or generic) while on the antibiotic. URI - Pt advised to increase fluids, vitamin C. Discussed natural and expected course of this diagnosis and need to alert me if symptoms do not follow expected course, or if any worse. RX sent to patient's pharmacy. Allergies - chronic - recommended pt to use allergy medication as prescribed. Pt has been counseled as to the appropriate use of the medication. Pt to call if allergy symptoms are not controlled with the medication. If using nasal spray, instructions as follows: Nasal spray- use twice daily, one spray per nostril twice daily, after 30 minutes, rinse out nose with saline spray.. Use opposite hand per nostril to spray in the nasal steroid allergy spray. Esophageal Reflux - the patient has been counseled against excessive intake of caffeine, spicy foods, peppermint, and cinnamon - all of which can exacerbate esophageal reflux. The patient is to take medications as prescribed and call the office if the symptoms are not improving. . Hypertension - well controlled - continue with current medications, continue with no added salt diet. Pt has been encouraged to exercise daily. The pt has been advised to call the office if there are any acute concerns about change in blood pressure readings at home. Esophageal Reflux - the patient has been counseled against excessive intake of caffeine, spicy foods, peppermint, and cinnamon - all of which can exacerbate esophageal reflux. The patient is to take medications as prescribed and call the office if the symptoms are not improving. . Hypertension - well controlled - continue with current medications, continue with no added salt diet. Pt has been encouraged to exercise daily. The pt has been advised to call the office if there are any acute concerns about change in blood pressure readings at home. Chronic Depression and anxiety - the pt has symptoms of chronic anxiety and depression that have been fairly well controlled since the last office visit. The pt has expected periods of exacerbation with abatement of the symptoms with change in situational exposure. No change in current medications. increase generic lexapro to 5mg in the morning and 5mg at bedtime start on losartan hctz - it is a combo medication that will help get fluid off of your body and lower leg . Hypertension - uncontrolled - the patient's medications have been modified as documented in the visit note. The patient has been counseled to cut back on salt in diet for a no added salt diet, low fat diet, start an exercise program with low weight bearing exercises and higher aerobic activity for heart health. The patient is to check blood pressure readings as an outpatient and either fax , call, or email the readings to the office next week for practitioner to review. The pt is to call for acute concerns. Edema - pt has been advised to elevate legs to prevent dependent edema, compression has been recommended to help to naturally decrease peripheral edema. Diuretic use has been discussed and pt has been instructed in appropriate use of such medication as necessary to further attempt to reduce peripheral edema. Anxiety and Depression - increase lexapro from 1/2 tablet to a full tablet daily. . Hypertension - uncontrolled - the patient's medications have been modified as documented in the visit note. The patient has been counseled to cut back on salt in diet for a no added salt diet, low fat diet, start an exercise program with low weight bearing exercises and higher aerobic activity for heart health. The patient is to check blood pressure readings as an outpatient and either fax , call, or email the readings to the office next week for practitioner to review. The pt is to call for acute concerns. Depression - uncontrolled - Pt has been counseled about the diagnosis of depression, the potential causes, and risks associated with the diagnosis. The pt denies suicidal ideation, or plans. The patient has been counseled about treatment options, and understands the risks associated with treatment of depression, as well as the risks associated with NOT treating the depression. I believe the pt will benefit from medical intervention and an antidepressant has been appropriately prescribed for this patient. . Hypertension - well controlled - continue with current medications, continue with no added salt diet. Pt has been encouraged to exercise daily. The pt has been advised to call the office if there are any acute concerns about change in blood pressure readings at home. Chronic Depression and anxiety - the pt has symptoms of chronic anxiety and depression that have been fairly well controlled since the last office visit. The pt has expected periods of exacerbation with abatement of the symptoms with change in situational exposure. No change in current medications. . [id number] not taking any medications at this time-will recheck vitamin d level and proceed as indicated-instructed patient to call if symptoms worsen. Plan to follow up in 1 month to re- evaluate. Consider SSRI if symptoms do not improve or if any worse. Patient verbalized understanding of plan. Iron deficiency anemia-check labs today Vitamin D deficiency-check level today . Hypertension - well controlled - continue with current medications, continue with no added salt diet. Pt has been encouraged to exercise daily. The pt has been advised to call the office if there are any acute concerns about change in blood pressure readings at home. . Medicare Exam - today we discussed the patients past history, immunizations, preventative exams/evaluations - colonoscopy, fecal occult blood testing, routine labs for renal function, glucose, cholesterol, osteoporosis evaluations, cardiovascular testing and cancer screenings. We have also discussed mental health and the signs/symptoms of depression. The patient was advised of home safety evaluations and the need to make sure that as the aging process continues, we need to be aware of different ways to make the home a safer place to reside. The patient has also been counseled that exercise is necessary - and of utmost importance as we age to help decrease fall risk and to maintain independence in the home. Today we discussed the need for the patient to create paperwork for Advanced directives as well as for the patient to provide this office with a copy of her [employer] paperwork for health care surrogate. use beano before eating veggies and fruit - see if this helps to decrease the gas and bloating. . Hypertension - well controlled - continue with current medications, continue with no added salt diet. Pt has been encouraged to exercise daily. The pt has been advised to call the office if there are any acute concerns about change in blood pressure readings at home.
--- OUTSIDE RECORDS SUMMARY | 2018-06-19 12:24 | XMS REPORT | CCD ---
Author Author Georgette Milner Organization Dilma Tran MD, [facility] Address [address] [place] [address] Phone Care Team Providers Care Pipe Turner Name Role Phone PP Unavailable CCM Unavailable Summary Purpose Interface Exchange Insurance Providers Payer name Policy type / Coverage type Covered green party ID Effective Begin Date Effective End Date WPS Medicare Part B Medicare Part B [id number] Unknown Unknown [employer] Medicare Part B [id number] Unknown Unknown Family history Mother Diagnosis Age At [...] Unknown Retired 08/17/[address]: 965173637 Never smoker 08/17/[address]: 336801943 Never drinks alcohol 08/17/2015 Allergies, Adverse Reactions, Alerts Substance Reaction Codes Entered Date Inactivated Date Status levothyroxine drowsiness RxNorm: 51406 07/24/2017 No Inactive Date Active CODEINE emesis RxNorm: 2670 08/17/2015 No Inactive Date Active Past Medical History Illness Codes Condition Status Onset Date Resolved Date Essential (primary) hypertension ICD-9: 401.1 ICD-10: I10 Active 05/18/2016 Unknown Acute laryngopharyngitis ICD-9: 465.0 ICD-10: J06.0 Active 06/28/2017 Unknown Other allergic rhinitis ICD-9: 477.8 ICD-10: J30.89 Active 06/28/2017 Unknown Hypothyroidism, unspecified ICD-9: 244.9 ICD-10: E03.9 Active 01/27/2017 Unknown Hypothryroidism Unknown Active 01/27/2017 Unknown Encounter [...] : 782.3 ICD-10: R60.0 Active 02/24/2016 Unknown Major depressive disorder, single episode, unspecified ICD-9: 311 ICD-10: F32.9 Active 11/23/2015 Unknown Anemia, unspecified ICD-9: 285.9 ICD-10: D64.9 Active 08/20/2015 Unknown Depression Unknown Active 08/17/2015 Unknown Osteoarthritis Unknown Active 08/17/2015 Unknown Iron deficiency anemia, unspecified ICD-9: 280.9 ICD-10: D50.9 Active 08/16/2015 Unknown Unspecified osteoarthritis, unspecified site ICD-9: 715.90 ICD-10: M19.90 Active 08/16/2015 Unknown Vitamin D deficiency, unspecified ICD-9: 268.9 ICD-10: E55.9 Active 08/16/2015 Unknown Problems Condition Codes Effective Dates Condition Status Essential (primary) hypertension ICD-9: 401.1 ICD-10: I10 05/18/2016 Active Acute laryngopharyngitis ICD-9: 465.0 ICD-10: J06.0 06/28/2017 Active Other allergic rhinitis ICD-9: 477.8 ICD-10: J30.89 06/28/2017 Active Hypothyroidism, unspecified ICD-9: 244.9 ICD-10: E03.9 01/27/2017 Active Hypothryroidism Unknown 01/27/2017 Active Encounter for general adult medical examination with abnormal findings ICD-9: V70.0 ICD-10: Z00.01 01/10/2017 Active Generalized anxiety disorder ICD-9: 308.0 ICD-10: F41.1 02/24/2016 Active Major depressive disorder, single episode, mild ICD-9: 296.21 ICD-10: F32.0 05/18/2016 Active Essential (primary) hypertension ICD-9: 401.9 ICD-10: I10 02/24/2016 Active Localized edema ICD-9 : 782.3 ICD-10: R60.0 02/24/2016 Active Major depressive disorder, single episode, unspecified ICD-9: 311 ICD-10: F32.9 11/23/2015 Active Anemia, unspecified ICD-9: 285.9 ICD-10: D64.9 08/20/2015 Active Depression Unknown 08/17/2015 Active Osteoarthritis Unknown 08/17/2015 Active Iron deficiency anemia, unspecified ICD-9: 280.9 ICD-10: D50.9 08/16/2015 Active Unspecified osteoarthritis, unspecified site ICD-9: 715.90 ICD-10: M19.90 08/16/2015 Active Vitamin D deficiency, unspecified ICD-9: 268.9 ICD-10: E55.9 08/16/2015 Active Medications Medication Codes Instructions Start Date Stop Date Status Fill Instructions losartan 100 mg-hydrochlorothiazide 12.5 mg tablet RxNorm: 076695 Tablet(s) TAKE ONE TABLET BY MOUTH ONCE DAILY 08/16/2017 No Stop Date Active escitalopram 20 mg tablet RxNorm: 309242 1 Tablet(s) daily 09/08/2017 Active escitalopram 20 mg tablet RxNorm: 355061 1 Tablet(s) daily 08/15/2017 Inactive levothyroxine 50 mcg tablet RxNorm: 566096 1 Tablet(s) PO daily 07/21/2017 07/20/2017 Inactive this is a new higher dose - dc the lower dose from her med refill que levothyroxine 50 mcg tablet RxNorm: 885374 1 Tablet(s) PO daily 07/21/2017 07/23/2017 Inactive this is a new higher dose - dc the lower dose from her med refill que Kenalog 40 mg/mL suspension for injection RxNorm: 9605048 1 Milliliter(s) Inj 06/28/2017 06/28/2017 Inactive prednisone 20 mg tablet RxNorm: 515759 2 Tablet(s) PO daily 07/02/2017 Inactive ceftriaxone 500 mg solution for injection RxNorm: 6329065 1 Milliliter(s) Inj 06/28/2017 06/28/2017 Inactive Keflex 500 mg capsule RxNorm: 419041 1 Capsule(s) PO TID 201607/07/2017 Inactive Zithromax Z-Bob 250 mg tablet RxNorm: 515517 1 Tablet(s) PO UD 06/23/2017 06/27/2017 Inactive Pepcid 20 mg tablet RxNorm: 139767 1 Tablet(s) PO BID 201607/23/2017 Inactive Zithromax Z-Bob 250 mg tablet RxNorm: 833285 1 Tablet(s) PO UD 06/23/2017 06/22/2017 Inactive Pepcid 20 mg tablet RxNorm: 246855 1 Tablet(s) PO BID 201606/22/2017 Inactive losartan 100 mg-hydrochlorothiazide 12.5 mg tablet RxNorm: 804480 TAKE ONE TABLET BY MOUTH ONCE DAILY 05/19/2017 08/15/2017 Inactive escitalopram 20 mg tablet RxNorm: 253457 TAKE ONE-HALF TABLET BY MOUTH TWICE DAILY 02/20/2017 07/23/2017 Inactive levothyroxine 25 mcg tablet RxNorm: 664107 1 Tablet(s) PO daily 01/27/2017 01/26/2017 Inactive levothyroxine 25 mcg tablet RxNorm: 142278 1 Tablet(s) PO daily 01/27/2017 05/26/2017 Inactive levothyroxine 25 mcg tablet RxNorm: 527739 1 Tablet(s) PO daily 01/27/2017 01/26/2017 Inactive escitalopram 20 mg tablet RxNorm: 543165 TAKE ONE-HALF TABLET BY MOUTH TWICE DAILY 12/19/2016 02/16/2017 Inactive escitalopram 20 mg tablet RxNorm: 805690 Tablet(s) TAKE ONE-HALF TABLET BY MOUTH TWICE DAILY 09/21/2016 06/17/2017 Inactive escitalopram 20 mg tablet RxNorm: 489265 TAKE ONE-HALF TABLET BY MOUTH TWICE DAILY 09/21/2016 09/20/2016 Inactive escitalopram 20 mg tablet RxNorm: 597951 1/2 Tablet(s) PO BID 05/19/2016 09/15/2016 Inactive losartan 100 mg-hydrochlorothiazide 12.5 mg tablet RxNorm: 657763 1 Tablet(s) PO daily 05/19/2016 05/13/2017 Inactive losartan 50 mg-hydrochlorothiazide 12.5 mg tablet RxNorm: 492062 1 Tablet(s) PO daily 02/25/2016 05/18/2016 Inactive escitalopram 10 mg tablet RxNorm: 323859 1/2 Tablet(s) PO BID 02/25/2016 05/18/2016 Inactive losartan 25 mg tablet RxNorm: 069940 1 Tablet(s) PO daily 201502/24/2016 Inactive Lexapro 5 mg tablet RxNorm: 495729 1 Tablet(s) PO QPM 201502/24/2016 Inactive Vitamin D2 50,000 unit capsule RxNorm: 869181 1 Capsule(s) PO QW 08/21/2015 11/23/2015 Inactive melatonin 3 mg tablet RxNorm: 239011 1 Tablet(s) PO QHS No Start Date Active Super B-Complex oral RxNorm: oral No Start Date Active bilberry 100 mg capsule RxNorm: 873735 1 Capsule(s) PO daily No Start Date Active Calcium 500 + D 500 mg (1,250 mg)-200 unit tablet RxNorm: 972478 1 Tablet(s) PO daily No Start Date 07/23/2017 Inactive Vitamin D2 oral RxNorm : 4018 oral No Start Date 08/21/2015 Inactive Vitamin D3 2,000 unit tablet RxNorm: 366717 1 Tablet(s) PO daily No Start Date 07/23/2017 Inactive boron oral RxNorm: 1705 oral No Start Date 11/23/2015 Inactive Joint Formula tablet RxNorm: 1 Tablet(s) PO BID No Start Date 07/23/2017 Inactive Vitamin D2 50,000 unit capsule RxNorm: 847347 1 Capsule(s) PO QW No Start Date 08/20/2015 Inactive Medication Administered Medication Codes Instructions Start Date Status Kenalog 40 mg/mL suspension for injection RxNorm: 6650743 1Milliliter 06/28/2017 No longer Active ceftriaxone 500 mg solution for injection RxNorm: 8554243 1Milliliter 06/28/2017 No longer Active Immunizations No Immunization data Assessments Condition Codes Effective Dates Essential (primary) hypertension ICD-10: I10 ICD-9: 401.1 07/06/2017 Acute laryngopharyngitis ICD-10: J06.0 ICD-9: 465.0 06/28/2017 Other allergic rhinitis ICD-10: J30.89 ICD-9: 477.8 06/28/2017 Hypothyroidism, unspecified ICD-10: E03.9 ICD-9: 244.9 04/19/2017 Encounter for general adult medical examination with abnormal findings ICD-10: Z00.01 ICD-9: V70.0 01/10/2017 Generalized anxiety disorder ICD-10: F41.1 ICD-9: 308.0 01/02/2017 Major depressive disorder, single episode, mild ICD-10: F32.0 ICD-9: 296.21 01/02/2017 Essential (primary) hypertension ICD-10: I10 ICD-9: 401.9 02/25/2016 Localized edema ICD-10: R60.0 ICD-9: 782.3 02/25/2016 Major depressive disorder, single episode, unspecified ICD- 10: F32.9 ICD-9: 311 11/24/2015 Anemia, unspecified ICD-10: D64.9 ICD-9: 285.9 08/21/2015 Unspecified osteoarthritis, unspecified site ICD-10: M19.90 ICD-9: 715.90 08/17/2015 Iron deficiency anemia, unspecified ICD-10: D50.9 ICD-9: 280.9 08/17/2015 Vitamin D deficiency, unspecified ICD-10: E55.9 ICD-9: 268.9 08/17/2015 Reason For Visit Reason For Visit Effective Dates Notes hypertension 07/06/2017 cough 06/28/2017 Annual Medicare Wellness Exam 01/10/2017 hypertension 01/02/2017 hypertension 06/23/2016 hypertension 05/19/2016 hypertension 02/25/2016 hypertension 11/24/2015 nocturia 11/03/2015 nocturia 08/17/2015 Results Observation Observation Code Item Item Code Result Date Tsh Ord6 hTSH II 4.86 uIU/mL 07/21/2017 Hepatic Esy646 ALBUMIN 3.8 g/dL 07/21/2017 Hepatic Bte974 TPRO 6.1 g/dL 07/21/2017 Hepatic Rmz000 GLOB 2.3 g/dL 07/21/2017 Hepatic Jxy839 A/G Ratio 1.6 Ratio 07/21/2017 Hepatic Pow971 ALK PHOS 75 U/L 07/21/2017 Hepatic Drj433 ALT(SGPT) 21 U/L 07/21/2017 Hepatic Hyp861 AST(SGOT) 18 U/L 07/21/2017 Hepatic Ymp878 BILI T 0.3 mg/dL 07/21/2017 Hepatic Zpm061 BILI D 0.1 mg/dL 07/21/2017 Hepatic Mdl367 BILI I 0.2 mg/dL 07/21/2017 Free T4 Zna006 FREE T4 0.84 ng/dL 07/21/2017 Lipid Ord30 CHOL 202 mg/dL 07/21/2017 Lipid Ord30 HDL 60.0 mg/dl 07/21/2017 Lipid Ord30 TRIG 80 mg/dL 07/21/2017 Lipid Ord30 LDL 126 mg/dL 07/21/2017 Lipid Ord30 C/HDL 3.4 Ratio 07/21/2017 Free T4 Cty309 FREE T4 0.96 ng/dL 04/28/2017 Lipid Ord30 CHOL 195 mg/dL 04/28/2017 Lipid Ord30 HDL 53.0 mg/dl 04/28/2017 Lipid Ord30 TRIG 96 mg/dL 04/28/2017 Lipid Ord30 LDL 123 mg/dL 04/28/2017 Lipid Ord30 C/HDL 3.7 Ratio 04/28/2017 Tsh Ord6 hTSH II 3.95 uIU/mL 04/28/2017 Hepatic Chq102 ALBUMIN 4.0 g/dL 04/28/2017 Hepatic Ydn235 TPRO 6.2 g/dL 04/28/2017 Hepatic Npi375 GLOB 2.2 g/dL 04/28/2017 Hepatic Exn306 A/G Ratio 1.8 Ratio 04/28/2017 Hepatic Sqd369 ALK PHOS 77 U/L 04/28/2017 Hepatic Roh440 ALT(SGPT) 14 U/L 04/28/2017 Hepatic Iay313 AST(SGOT) 17 U/L 04/28/2017 Hepatic Cdj660 BILI T 0.6 mg/dL 04/28/2017 Hepatic Kin083 BILI D 0.1 mg/dL 04/28/2017 Hepatic Vxq581 BILI I 0.5 mg/dL 04/28/2017 Free T4 Bqx435 FREE T4 0.78 ng/dL 02/01/2017 Comp Metabolic Qdp038 NA 138 mEq/L 01/26/2017 Comp Metabolic Vqy129 K 5.4 mEq/L 01/26/2017 Comp Metabolic Xib539 CL 102 mEq/L 01/26/2017 Comp Metabolic Zuq874 CO2 30.0 mEq/L 01/26/2017 Comp Metabolic Iau008 ANION GAP 11 01/26/2017 Comp Metabolic Ruh893 GLUCOSE 93 mg/dL 01/26/2017 Comp Metabolic Jtc612 Creat 0.8 mg/dL 01/26/2017 Comp Metabolic Joj429 eGFR 71 ml/min/1.73m2 01/26/2017 Comp Metabolic Ixn251 BUN 13 mg/dL 01/26/2017 Comp Metabolic Azx852 B/C Ratio 15.9 Ratio 01/26/2017 Comp Metabolic Pim447 CALCIUM 9.5 mg/dL 01/26/2017 Comp Metabolic Mej282 ALK PHOS 71 U/L 01/26/2017 Comp Metabolic Frn440 AST(SGOT) 15 U/L 01/26/2017 Comp Metabolic Hpk365 ALT(SGPT) 11 U/L 01/26/2017 Comp Metabolic Uuh495 BILI T 0.5 mg/dL 01/26/2017 Comp Metabolic Lry573 ALBUMIN 4.0 g/dL 01/26/2017 Comp Metabolic Uur063 TPRO 6.4 g/dL 01/26/2017 Comp Metabolic Jup686 GLOB 2.4 g/dL 01/26/2017 Comp Metabolic Aug792 A/G Ratio 1.7 Ratio 01/26/2017 Comp Metabolic Zcn520 Osmo 275 mOsmo 01/26/2017 Bili D Ord93 BILI D 0.1 mg/dL 01/26/2017 Bili D Ord93 BILI I 0.4 mg/dL 01/26/2017 Tsh Ord6 hTSH II 5.36 uIU/mL 01/26/2017 Cbc With Differential Ord2 WBC 4.03 K/ul 01/26/2017 Cbc With Differential Ord2 RBC 4.70 M/ul 01/26/2017 Cbc With Differential Ord2 HGB 14.0 g/dl 01/26/2017 Cbc With Differential Ord2 Neut% 37.3 % 01/26/2017 Cbc With Differential Ord2 HCT 41.6 % 01/26/2017 Cbc With Differential Ord2 MCV 88.5 fl 01/26/2017 Cbc With Differential Ord2 Lymph% 49.9 % 01/26/2017 Cbc With Differential Ord2 MCH 29.8 pg 01/26/2017 Cbc With Differential Ord2 [place]% 8.9 % 01/26/2017 Cbc With Differential Ord2 Eos% 2.7 % 01/26/2017 Cbc With Differential Ord2 MCHC 33.7 pg 01/26/2017 Cbc With Differential Ord2 PLT 216 K/ul 01/26/2017 Cbc With Differential Ord2 Baso% 1.2 % 01/26/2017 Cbc With Differential Ord2 RDW 14.0 % 01/26/2017 Cbc With Differential Ord2 Neut ABS# 1.50 K/ul 01/26/2017 Cbc With Differential Ord2 Lymph ABS# 2.01 K/ul 01/26/2017 Cbc With Differential Ord2 [place] ABS# 0.4 K/ul 01/26/2017 Cbc With Differential [...] Ord30 C/HDL 3.4 Ratio 07/22/2016 Comp Metabolic Sde408 NA 137 mEq/L 07/22/2016 Comp Metabolic Sku128 K 4.3 mEq/L 07/22/2016 Comp Metabolic Ktx810 CL 101 mEq/L 07/22/2016 Comp Metabolic Pco487 CO2 31.0 mEq/L 07/22/2016 Comp Metabolic Dxb241 ANION GAP 9 07/22/2016 Comp Metabolic Lzz080 GLUCOSE 90 mg/dL 07/22/2016 Comp Metabolic Ror858 Creat 0.9 mg/dL 07/22/2016 Comp Metabolic Qrz905 eGFR 64 ml/min/1.73m2 07/22/2016 Comp Metabolic Brd390 BUN 9 mg/dL 07/22/2016 Comp Metabolic Hvj433 B/C Ratio 10.0 Ratio 07/22/2016 Comp Metabolic Xkx791 CALCIUM 9.4 mg/dL 07/22/2016 Comp Metabolic Pen348 ALK PHOS 65 U/L 07/22/2016 Comp Metabolic Tcq048 AST(SGOT) 16 U/L 07/22/2016 Comp Metabolic Yap603 ALT(SGPT) 13 U/L 07/22/2016 Comp Metabolic Dyl272 BILI T 0.4 mg/dL 07/22/2016 Comp Metabolic Zpx526 ALBUMIN 4.2 g/dL 07/22/2016 Comp Metabolic Wgj822 TPRO 6.6 g/dL 07/22/2016 Comp Metabolic Coe820 GLOB 2.4 g/dL 07/22/2016 Comp Metabolic She531 A/G Ratio 1.7 Ratio 07/22/2016 Comp Metabolic Eyd009 Osmo 272 mOsmo 07/22/2016 Tsh Ord6 hTSH II 3.94 uIU/mL 07/22/2016 Vitamin D 25 Oh Qjr8637 VITAMIN D, 25 HYDROXY 55.11 ng/mL Comp Metabolic Uyv312 NA 139 mEq/L 11/02/2015 Comp Metabolic Qmg635 K 4.3 mEq/L 11/02/2015 Comp Metabolic Rdl651 CL 103 mEq/L 11/02/2015 Comp Metabolic Nyl768 CO2 29.0 mEq/L 11/02/2015 Comp Metabolic Qbk114 ANION GAP 11 11/02/2015 Comp Metabolic Pua468 GLUCOSE 87 mg/dL 11/02/2015 Comp Metabolic Acc292 Creat 0.8 mg/dL 11/02/2015 Comp Metabolic Ikx134 eGFR 70 ml/min/1.73m2 11/02/2015 Comp Metabolic Zwe013 BUN 11 mg/dL 11/02/2015 Comp Metabolic Otr602 B/C Ratio 13.1 Ratio 11/02/2015 Comp Metabolic Qge979 CALCIUM 9.0 mg/dL 11/02/2015 Comp Metabolic Smq754 ALK PHOS 90 U/L 11/02/2015 Comp Metabolic Mus951 AST(SGOT) 15 U/L 11/02/2015 Comp Metabolic Iar142 ALT(SGPT) 12 U/L 11/02/2015 Comp Metabolic Sry777 BILI T 0.5 mg/dL 11/02/2015 Comp Metabolic Cki901 ALBUMIN 3.7 g/dL 11/02/2015 Comp Metabolic Juc094 TPRO 6.2 g/dL 11/02/2015 Comp Metabolic Jzs371 GLOB 2.5 g/dL 11/02/2015 Comp Metabolic Uug962 A/G Ratio 1.5 Ratio 11/02/2015 Comp Metabolic Gxe198 Osmo 276 mOsmo 11/02/2015 Iron Ord72 Iron 36 ug/dl 08/25/2015 Vitamin D 25 Oh Com3758 VITAMIN D, 25 HYDROXY 26.14 ng/mL Comp Metabolic Ozr585 NA 138 mEq/L 08/17/2015 Comp Metabolic Bac710 K 4.5 mEq/L 08/17/2015 Comp Metabolic Mtn528 CL 100 mEq/L 08/17/2015 Comp Metabolic Rio667 CO2 29.0 mEq/L 08/17/2015 Comp Metabolic Bli193 ANION GAP 14 08/17/2015 Comp Metabolic Fic246 GLUCOSE 88 mg/dL 08/17/2015 Comp Metabolic Fmf324 Creat 0.8 mg/dL 08/17/2015 Comp Metabolic Hdc487 eGFR 74 ml/min/1.73m2 08/17/2015 Comp Metabolic Zpf781 BUN 9 mg/dL 08/17/2015 Comp Metabolic Tsc862 B/C Ratio 11.3 Ratio 08/17/2015 Comp Metabolic Kng512 CALCIUM 9.1 mg/dL 08/17/2015 Comp Metabolic Xii245 ALK PHOS 88 U/L 08/17/2015 Comp Metabolic Syi883 AST(SGOT) 16 U/L 08/17/2015 Comp Metabolic Sld617 ALT(SGPT) 13 U/L 08/17/2015 Comp Metabolic Bxy028 BILI T 0.4 mg/dL 08/17/2015 Comp Metabolic Mjm951 ALBUMIN 4.0 g/dL 08/17/2015 Comp Metabolic Kog003 TPRO 6.5 g/dL 08/17/2015 Comp Metabolic Dkb079 GLOB 2.5 g/dL 08/17/2015 Comp Metabolic Xxi289 A/G Ratio 1.6 Ratio 08/17/2015 Comp Metabolic Oje407 Osmo 274 mOsmo 08/17/2015 Cbc With Differential Ord2 WBC 3.54 K/ul 08/17/2015 Cbc With Differential Ord2 RBC 4.63 M/ul 08/17/2015 Cbc With Differential Ord2 HGB 12.8 g/dl 08/17/2015 Cbc With Differential Ord2 Neut% 44.4 % 08/17/2015 Cbc With Differential Ord2 HCT 40.3 % 08/17/2015 Cbc With Differential Ord2 MCV 87.0 fl 08/17/2015 Cbc With Differential Ord2 Lymph% 42.1 % 08/17/2015 Cbc With Differential Ord2 MCH 27.6 pg 08/17/2015 Cbc With Differential Ord2 [place]% 10.7 % 08/17/2015 Cbc With Differential Ord2 MCHC 31.8 pg 08/17/2015 Cbc With Differential Ord2 Eos% 2.0 % 08/17/2015 Cbc With Differential Ord2 PLT 233 K/ul 08/17/2015 Cbc With Differential Ord2 Baso% 0.8 % 08/17/2015 Cbc With Differential Ord2 RDW 15.8 % 08/17/2015 Cbc With Differential Ord2 Neut ABS# 1.57 K/ul 08/17/2015 Cbc With Differential Ord2 Lymph ABS# 1.49 K/ul 08/17/2015 Cbc With Differential Ord2 [place] ABS# 0.4 K/ul 08/17/2015 Cbc With Differential [...] nourished 01/10/2017 None Full Exam - General 1994 Eyes conjunctiva /eyelids Overall: conjunctiva clear 01/10/2017 None Full Exam - General 1994 Eyes conjunctiva /eyelids Overall: eyelids normal 01/10/2017 None Full Exam - General 1994 Ears/Nose/Throat lips/teeth/gingiva Overall: benign lips 01/10/2017 None Full Exam - General 1994 Ears/Nose/Throat [...] CPT-4: J0696 06/28/2017 THER/PROPH/DIAG INJ SC/IM CPT-4: 78485 06/28/2017 PPPS, SUBSEQ VISIT CPT -4: G0439 01/10/2017 Vital Signs Date Vital 07/06/2017 Blood Pressure 1: 126/74 Code : 8480-6 BMI: 25.3 Code : 74867-5 Heart Rate 1 : 70 bpm Height: 5'5" SpO2: 95% Weight: 152 lbs 06/28/2017 Blood Pressure 1: 126/64 Code : 8480-6 BMI: 25.3 Code : 50241-2 Heart Rate 1 : 58 bpm Height: 5'5" SpO2: 97% Temperature: 36.8 (C) / 98.3 (F) Weight: 152 lbs 01/10/2017 BMI: 25.8 Code: 45796-0 Height: 5'5" Weight: 155 lbs 01/02/2017 Blood Pressure 1: 138/78 Code : 8480-6 BMI: 25.8 Code : 85703-4 Heart Rate 1 : 58 bpm Height: 5'5" SpO2: 98% Weight: 155 lbs 06/23/2016 Blood Pressure 1: 138/78 Code : 8480-6 BMI: 25.8 Code : 60320-3 Height: 5'5" Weight: 155 lbs 05/19/2016 Blood Pressure 1: 138/80 Code : 8480-6 BMI: 25.6 Code : 88398-3 Heart Rate 1 : 61 bpm Height: 5'5" SpO2: 98% Weight: 154 lbs 02/25/2016 Blood Pressure 1: 158/82 Code : 8480-6 BMI: 24.9 Code : 25869-8 Heart Rate 1 : 66 bpm Height: 5'5" SpO2: 97% Weight: 149 lbs 8 oz 11/24/2015 Blood Pressure 1: 132/70 Code : 8480-6 BMI: 24.8 Code : 77871-7 Heart Rate 1 : 71 bpm Height: 5'5" SpO2: 98% Weight: 149 lbs 11/03/2015 Blood Pressure 1: 150/80 Code : 8480-6 Blood Pressure 1: 140/80 Code: 8480-6 BMI: 24.8 Code: 16400-5 Heart Rate 1: 71 bpm Height: 5'5" SpO2: 96% Weight: 149 lbs 08/17/2015 Blood Pressure 1: 140/80 Code : 8480-6 BMI: 24.3 Code : 68226-6 Heart Rate 1 : 63 bpm Height: 5'5" SpO2: 99% Weight: 146 lbs Functional Status No Functional Status data History of Present Illness Symptom Name Status Result Effective Date Notes hypertension Quality intermittent 07/06/2017 None hypertension Onset [...] data Encounters Encounter Performer Location Codes Date () 30865 EST. PATIENT, LEVEL III Diagnosis: Essential (primary) hypertension[ICD10: I10] Dilma Tran MD, [facility] CPT-4: 65971 07/06/201781124 EST. PATIENT, LEVEL III Diagnosis: Acute laryngopharyngitis[ICD10: J06.0] Diagnosis: Other allergic rhinitis[ICD10: J30.89] April Tran MD, [facility] CPT-4: 21560 06/28/2017 ([id number]) 87507 EST. PATIENT, LEVEL IV Diagnosis: Essential (primary) hypertension[ICD10: I10] Diagnosis: Major depressive disorder, single episode, mild[ICD10: F32.0] Diagnosis: Generalized anxiety disorder[ICD10: F41.1] Dilma Tran MD, [facility] CPT-4: 22663 01/02/2017 ([id number]) 71677 EST. PATIENT, LEVEL III Diagnosis: Essential (primary) hypertension[ICD10: I10] Diagnosis: Generalized anxiety disorder[ICD10: F41.1] Dilma Tran MD, [facility] CPT-4: 60051 06/23/2016 ([id number]) 99157 EST. PATIENT, LEVEL III Diagnosis: Essential (primary) hypertension[ICD10: I10] Diagnosis: Major depressive disorder, single episode, mild[ICD10: F32.0] Dilma Tran MD, [facility] CPT-4: 67983 05/19/2016 ([id number]) 83830 EST. PATIENT, LEVEL IV Diagnosis: Essential (primary) hypertension[ICD10: I10] Diagnosis: Localized edema[ICD10: R60.0] Diagnosis: Generalized anxiety disorder[ICD10: F41.1] Dilma Tran MD [facility] CPT-4: 49042 02/25/2016 ([id number]) 83244 EST. PATIENT, LEVEL IV Diagnosis: Essential (primary) hypertension[ICD10: I10] Diagnosis: Major depressive disorder, single episode, unspecified[ICD10: F32.9] Diagnosis: Generalized anxiety disorder[ICD10: F41.1] Dilma Tran MD, [facility] CPT-4: 84379 11/24/2015 ([id number]) 30857 EST. PATIENT, LEVEL IV Diagnosis: Essential (primary) hypertension[ICD10: I10] Diagnosis: Major depressive disorder, single episode, unspecified[ICD10: F32.9] Dilma Tran MD, [facility] CPT-4: 49383 11/03/2015 ([id number]) OFFICE VISIT, NEW - LEVEL 4 Diagnosis: Generalized anxiety disorder[ICD10: F41.1] Diagnosis: Major depressive disorder, single episode, unspecified[ICD10: F32.9] Diagnosis: Vitamin D deficiency, unspecified[ICD10: E55.9] Diagnosis: Iron deficiency anemia, unspecified[ICD10: D50.9] Diagnosis: Unspecified osteoarthritis, unspecified site[ICD10: M19.90] Georgette Tran MD, [facility] CPT-4: 62326 08/17/2015 Plan of Care Planned Activity Notes Codes Status Date Appointment: April Wallace WPtel: [phone] (30 min) Complex 07/24/2017 Visit Plan: Hypertension - well controlled - continue with current medications, continue with no added salt diet. Pt has been encouraged to exercise daily. The pt has been advised to call the office if there are any acute concerns about change in blood pressure readings at home. 07/06/2017 Appointment: Dilma Tran WPtel: [facility] (15 min) Moderate 07/06/2017 Patient Education: Patient [...] allergy spray. 06/28/2017 Appointment: April Wallace WPtel: [phone] (15 min) Moderate 06/28/2017 Patient Education: Patient [...] care surrogate. 01/10/2017 Appointment: April Wallace WPtel: [facility] [place] [address] - Annual Wellness Visit 01/10/2017 Patient Education: [...] current medications. 01/02/2017 Appointment: Dilma Tran WPtel: [facility] (15 min) Moderate 01/02/2017 Patient Education: Patient [...] current medications. 06/23/2016 Appointment: Dilma Tran WPtel: [facility] (15 min) Moderate 06/23/2016 Patient Education: Patient Medication Summary Completed 06/23/2016 Care Plan: Referral Order SNOMED-CT : [id number] Pending 06/23/2016 Visit Plan: Hypertension - uncontrolled [...] 100mg/12.5mg daily. 05/19/2016 Appointment: Dilma Tran WPtel: [facility] (15 min) Moderate 05/19/2016 Patient Education: Patient [...] daily. 02/25/2016 Appointment: Dilma Tran WPtel: [phone] [facility] (15 min) Moderate 02/25/2016 Patient Education: Patient [...] patient. 11/03/2015 Appointment: [phone] ([facility] min) Moderate 11/03/2015 Patient Education: Patient Medication Summary Completed 11/03/2015 Patient Education: Hypertension Completed 11/03/2015 Patient Education: Patient Medication Summary Completed 08/21/2015 Visit Plan: Qmpwrwr-qvcdaebdip-eejqiba not taking any medications at this time-will [...] acute concerns. increase losartan to 100mg/12.5mg daily. Steroid and antibiotic shot today Start prescriptions tomorrow. Take prednisone in the morning because it can make you a little jittery and keep you up. Take a probiotic (culturelle, Twitter or generic) while on the antibiotic. URI [...] spray in the nasal steroid allergy spray. . Hypertension - well controlled - continue [...] exposure. No change in current medications. . Adahscy-vgwtoqndqm-pqeqtty not taking any medications at this time-will [...]
--- OUTSIDE RECORDS SUMMARY | 2018-06-19 12:26 | XMS REPORT | CCD ---
Author Author Georgette Milner Organization Dilma Tran MD, [facility] Address [address] [place] [address] Phone Care Team Providers Care Ear Nose Throat Physician Name Role Phone PP Unavailable CCM Unavailable Summary Purpose Interface Exchange Insurance Providers Payer name Policy type / Coverage type Covered democrat ID Effective Begin Date Effective End Date WPS Medicare Part B Medicare Part B [id number] Unknown Unknown [employer] Medicare Part B [id number] Unknown Unknown Family history Mother Diagnosis Age [...] Unknown Retired 08/17/[address]: 091393341 Never smoker 08/17/[address]: 657342620 Never drinks alcohol 08/17/2015 Allergies, Adverse Reactions, Alerts Substance Reaction Codes Entered Date Inactivated Date Status CODEINE emesis RxNorm: 2670 08/17/2015 No Inactive [...] Start Date Stop Date Status Fill Instructions levothyroxine 50 mcg tablet RxNorm: 382316 1 Tablet(s) PO daily 07/21/2017 07/15/2018 Active this is a new higher dose - dc the lower dose from her med refill que Kenalog 40 mg/mL suspension for injection RxNorm: 0792206 1 Milliliter(s) Inj 06/28/2017 06/28/2017 Inactive prednisone 20 mg tablet RxNorm: 501212 2 Tablet(s) PO daily 07/02/2017 Inactive ceftriaxone 500 mg solution for injection RxNorm: 2625445 1 Milliliter(s) Inj 06/28/2017 06/28/2017 Inactive Keflex 500 mg capsule RxNorm: 377861 1 Capsule(s) PO TID 201607/07/2017 Inactive Pepcid 20 mg tablet RxNorm: 447765 1 Tablet(s) PO BID 201608/21/2017 Active Zithromax Z-Bob 250 mg tablet RxNorm: 505591 1 Tablet(s) PO UD 06/23/2017 06/27/2017 Inactive Zithromax Z-Bob 250 mg tablet RxNorm: 514706 1 Tablet(s) PO UD 06/23/2017 06/22/2017 Inactive Pepcid 20 mg tablet RxNorm: 533494 1 Tablet(s) PO BID 201606/22/2017 Inactive losartan 100 mg-hydrochlorothiazide 12.5 mg tablet RxNorm: 211619 TAKE ONE TABLET BY MOUTH ONCE DAILY 05/19/2017 No Stop Date Active escitalopram 20 mg tablet RxNorm: 753864 TAKE ONE-HALF TABLET BY MOUTH TWICE DAILY 02/20/2017 08/18/2017 Active levothyroxine 25 mcg tablet RxNorm: 280486 1 Tablet(s) PO daily 01/27/2017 01/26/2017 Inactive levothyroxine 25 mcg tablet RxNorm: 430269 1 Tablet(s) PO daily 01/27/2017 05/26/2017 Inactive levothyroxine 25 mcg tablet RxNorm: 222477 1 Tablet(s) PO daily 01/27/2017 01/26/2017 Inactive escitalopram 20 mg tablet RxNorm: 702971 TAKE ONE-HALF TABLET BY MOUTH TWICE DAILY 12/19/2016 02/16/2017 Inactive escitalopram 20 mg tablet RxNorm: 202987 Tablet(s) TAKE ONE-HALF TABLET BY MOUTH TWICE DAILY 09/21/2016 06/17/2017 Inactive escitalopram 20 mg tablet RxNorm: 649698 TAKE ONE-HALF TABLET BY MOUTH TWICE DAILY 09/21/2016 09/20/2016 Inactive escitalopram 20 mg tablet RxNorm: 034925 1/2 Tablet(s) PO BID 05/19/2016 09/15/2016 Inactive losartan 100 mg-hydrochlorothiazide 12.5 mg tablet RxNorm: 502024 1 Tablet(s) PO daily 05/19/2016 05/13/2017 Inactive losartan 50 mg-hydrochlorothiazide 12.5 mg tablet RxNorm: 358278 1 Tablet(s) PO daily 02/25/2016 05/18/2016 Inactive escitalopram 10 mg tablet RxNorm: 615759 1/2 Tablet(s) PO BID 02/25/2016 05/18/2016 Inactive losartan 25 mg tablet RxNorm: 355247 1 Tablet(s) PO daily 201502/24/2016 Inactive Lexapro 5 mg tablet RxNorm: 939484 1 Tablet(s) PO QPM 201502/24/2016 Inactive Vitamin D2 50,000 unit capsule RxNorm: 837452 1 Capsule(s) PO QW 08/21/2015 11/23/2015 Inactive Calcium 500 + D 500 mg (1,250 mg)-200 unit tablet RxNorm: 095362 1 Tablet(s) PO daily No Start Date Active Vitamin D3 2,000 unit tablet RxNorm: 893306 1 Tablet(s) PO daily No Start Date Active melatonin 3 mg tablet RxNorm: 715315 1 Tablet(s) PO QHS No Start Date Active Joint Formula tablet RxNorm: 1 Tablet(s) PO BID No Start Date Active Super B-Complex oral RxNorm: oral No Start Date Active bilberry 100 mg capsule RxNorm: 842840 1 Capsule(s) PO daily No Start Date Active Vitamin D2 oral RxNorm : 4018 oral No Start Date 08/21/2015 Inactive boron oral RxNorm: 1705 oral No Start Date 11/23/2015 Inactive Vitamin D2 50,000 unit capsule RxNorm: 397509 1 Capsule(s) PO QW No Start Date 08/20/2015 Inactive Medication Administered Medication Codes Instructions Start Date Status Kenalog 40 mg/mL suspension for injection RxNorm: 6092312 1Milliliter 06/28/2017 No longer Active ceftriaxone 500 mg solution for injection RxNorm: 4789869 1Milliliter 06/28/2017 No longer Active Immunizations No [...] Ord6 hTSH II 4.86 uIU/mL 07/21/2017 Hepatic Dfp794 ALBUMIN 3.8 g/dL 07/21/2017 Hepatic Nwk047 TPRO 6.1 g/dL 07/21/2017 Hepatic Run757 GLOB 2.3 g/dL 07/21/2017 Hepatic Xwb015 A/G Ratio 1.6 Ratio 07/21/2017 Hepatic Zhv481 ALK PHOS 75 U/L 07/21/2017 Hepatic Ypl481 ALT(SGPT) 21 U/L 07/21/2017 Hepatic Rhv553 AST(SGOT) 18 U/L 07/21/2017 Hepatic Xvr540 BILI T 0.3 mg/dL 07/21/2017 Hepatic Aep894 BILI D 0.1 mg/dL 07/21/2017 Hepatic Uug271 BILI I 0.2 mg/dL 07/21/2017 Free T4 Sad955 FREE T4 0.84 ng/dL 07/21/2017 Lipid Ord30 CHOL 202 mg/dL 07/21/2017 Lipid Ord30 HDL 60.0 mg/dl 07/21/2017 Lipid Ord30 TRIG 80 mg/dL 07/21/2017 Lipid Ord30 LDL 126 mg/dL 07/21/2017 Lipid Ord30 C/HDL 3.4 Ratio 07/21/2017 Free T4 Dvg962 FREE T4 0.96 ng/dL 04/28/2017 Lipid Ord30 CHOL 195 mg/dL 04/28/2017 Lipid Ord30 HDL 53.0 mg/dl 04/28/2017 Lipid Ord30 TRIG 96 mg/dL 04/28/2017 Lipid Ord30 LDL 123 mg/dL 04/28/2017 Lipid Ord30 C/HDL 3.7 Ratio 04/28/2017 Tsh Ord6 hTSH II 3.95 uIU/mL 04/28/2017 Hepatic Ffw495 ALBUMIN 4.0 g/dL 04/28/2017 Hepatic Ypj430 TPRO 6.2 g/dL 04/28/2017 Hepatic Mzm952 GLOB 2.2 g/dL 04/28/2017 Hepatic Ela117 A/G Ratio 1.8 Ratio 04/28/2017 Hepatic Amy832 ALK PHOS 77 U/L 04/28/2017 Hepatic Zan441 ALT(SGPT) 14 U/L 04/28/2017 Hepatic Jcq319 AST(SGOT) 17 U/L 04/28/2017 Hepatic Bxy718 BILI T 0.6 mg/dL 04/28/2017 Hepatic Yze845 BILI D 0.1 mg/dL 04/28/2017 Hepatic Mqo454 BILI I 0.5 mg/dL 04/28/2017 Free T4 Azz716 FREE T4 0.78 ng/dL 02/01/2017 Comp Metabolic Mtj658 NA 138 mEq/L 01/26/2017 Comp Metabolic Lht797 K 5.4 mEq/L 01/26/2017 Comp Metabolic Vyp420 CL 102 mEq/L 01/26/2017 Comp Metabolic Lyz292 CO2 30.0 mEq/L 01/26/2017 Comp Metabolic Xlt972 ANION GAP 11 01/26/2017 Comp Metabolic Sgy306 GLUCOSE 93 mg/dL 01/26/2017 Comp Metabolic Vvf218 Creat 0.8 mg/dL 01/26/2017 Comp Metabolic Kqi355 eGFR 71 ml/min/1.73m2 01/26/2017 Comp Metabolic Wtd311 BUN 13 mg/dL 01/26/2017 Comp Metabolic Xis974 B/C Ratio 15.9 Ratio 01/26/2017 Comp Metabolic Qng902 CALCIUM 9.5 mg/dL 01/26/2017 Comp Metabolic Zuy292 ALK PHOS 71 U/L 01/26/2017 Comp Metabolic Xlq573 AST(SGOT) 15 U/L 01/26/2017 Comp Metabolic Ris708 ALT(SGPT) 11 U/L 01/26/2017 Comp Metabolic Vjr504 BILI T 0.5 mg/dL 01/26/2017 Comp Metabolic Kou861 ALBUMIN 4.0 g/dL 01/26/2017 Comp Metabolic Ptg029 TPRO 6.4 g/dL 01/26/2017 Comp Metabolic Vut122 GLOB 2.4 g/dL 01/26/2017 Comp Metabolic Qgb950 A/G Ratio 1.7 Ratio 01/26/2017 Comp Metabolic Cdk116 Osmo 275 mOsmo 01/26/2017 Bili D Ord93 [...] 29.8 pg 01/26/2017 Cbc With Differential Ord2 [place]% 8.9 % 01/26/2017 Cbc With Differential Ord2 [...] 2.01 K/ul 01/26/2017 Cbc With Differential Ord2 [place] ABS# 0.4 K/ul 01/26/2017 Cbc With Differential [...] Ord30 C/HDL 3.4 Ratio 07/22/2016 Comp Metabolic Kbu366 NA 137 mEq/L 07/22/2016 Comp Metabolic Ern399 K 4.3 mEq/L 07/22/2016 Comp Metabolic Lkw723 CL 101 mEq/L 07/22/2016 Comp Metabolic Ydo653 CO2 31.0 mEq/L 07/22/2016 Comp Metabolic Kbo365 ANION GAP 9 07/22/2016 Comp Metabolic Iov644 GLUCOSE 90 mg/dL 07/22/2016 Comp Metabolic Faj629 Creat 0.9 mg/dL 07/22/2016 Comp Metabolic Arh610 eGFR 64 ml/min/1.73m2 07/22/2016 Comp Metabolic Uhe612 BUN 9 mg/dL 07/22/2016 Comp Metabolic Nyc302 B/C Ratio 10.0 Ratio 07/22/2016 Comp Metabolic Axu849 CALCIUM 9.4 mg/dL 07/22/2016 Comp Metabolic Kni102 ALK PHOS 65 U/L 07/22/2016 Comp Metabolic Pvn262 AST(SGOT) 16 U/L 07/22/2016 Comp Metabolic Gtn472 ALT(SGPT) 13 U/L 07/22/2016 Comp Metabolic Krr407 BILI T 0.4 mg/dL 07/22/2016 Comp Metabolic Rsn727 ALBUMIN 4.2 g/dL 07/22/2016 Comp Metabolic Pbl353 TPRO 6.6 g/dL 07/22/2016 Comp Metabolic Dhc323 GLOB 2.4 g/dL 07/22/2016 Comp Metabolic Tks382 A/G Ratio 1.7 Ratio 07/22/2016 Comp Metabolic Wvy471 Osmo 272 mOsmo 07/22/2016 Tsh Ord6 hTSH II 3.94 uIU/mL 07/22/2016 Vitamin D 25 Oh Fzb1156 VITAMIN D, 25 HYDROXY 55.11 ng/mL Comp Metabolic Hgo972 NA 139 mEq/L 11/02/2015 Comp Metabolic Gpq728 K 4.3 mEq/L 11/02/2015 Comp Metabolic Qnc478 CL 103 mEq/L 11/02/2015 Comp Metabolic Uvv524 CO2 29.0 mEq/L 11/02/2015 Comp Metabolic Tdr922 ANION GAP 11 11/02/2015 Comp Metabolic Gqg628 GLUCOSE 87 mg/dL 11/02/2015 Comp Metabolic Kzb788 Creat 0.8 mg/dL 11/02/2015 Comp Metabolic Jta820 eGFR 70 ml/min/1.73m2 11/02/2015 Comp Metabolic Ppq877 BUN 11 mg/dL 11/02/2015 Comp Metabolic Ktx580 B/C Ratio 13.1 Ratio 11/02/2015 Comp Metabolic Oni681 CALCIUM 9.0 mg/dL 11/02/2015 Comp Metabolic Jwx745 ALK PHOS 90 U/L 11/02/2015 Comp Metabolic Ttn685 AST(SGOT) 15 U/L 11/02/2015 Comp Metabolic Tki743 ALT(SGPT) 12 U/L 11/02/2015 Comp Metabolic Wvx842 BILI T 0.5 mg/dL 11/02/2015 Comp Metabolic Utb118 ALBUMIN 3.7 g/dL 11/02/2015 Comp Metabolic Jpm261 TPRO 6.2 g/dL 11/02/2015 Comp Metabolic Yug296 GLOB 2.5 g/dL 11/02/2015 Comp Metabolic Hyo915 A/G Ratio 1.5 Ratio 11/02/2015 Comp Metabolic Gmi512 Osmo 276 mOsmo 11/02/2015 Iron Ord72 Iron 36 ug/dl 08/25/2015 Vitamin D 25 Oh Qur4254 VITAMIN D, 25 HYDROXY 26.14 ng/mL Comp Metabolic Siw029 NA 138 mEq/L 08/17/2015 Comp Metabolic Pbi509 K 4.5 mEq/L 08/17/2015 Comp Metabolic Pmx541 CL 100 mEq/L 08/17/2015 Comp Metabolic Gkr214 CO2 29.0 mEq/L 08/17/2015 Comp Metabolic Bbf400 ANION GAP 14 08/17/2015 Comp Metabolic Svt751 GLUCOSE 88 mg/dL 08/17/2015 Comp Metabolic Zca238 Creat 0.8 mg/dL 08/17/2015 Comp Metabolic Dev301 eGFR 74 ml/min/1.73m2 08/17/2015 Comp Metabolic Ldp536 BUN 9 mg/dL 08/17/2015 Comp Metabolic Xtr576 B/C Ratio 11.3 Ratio 08/17/2015 Comp Metabolic Pqp410 CALCIUM 9.1 mg/dL 08/17/2015 Comp Metabolic Inp028 ALK PHOS 88 U/L 08/17/2015 Comp Metabolic Tfr401 AST(SGOT) 16 U/L 08/17/2015 Comp Metabolic Fnh993 ALT(SGPT) 13 U/L 08/17/2015 Comp Metabolic Pci739 BILI T 0.4 mg/dL 08/17/2015 Comp Metabolic Vsf789 ALBUMIN 4.0 g/dL 08/17/2015 Comp Metabolic Mbb796 TPRO 6.5 g/dL 08/17/2015 Comp Metabolic Cuv567 GLOB 2.5 g/dL 08/17/2015 Comp Metabolic Bga524 A/G Ratio 1.6 Ratio 08/17/2015 Comp Metabolic Vpu417 Osmo 274 mOsmo 08/17/2015 Cbc With Differential [...] 27.6 pg 08/17/2015 Cbc With Differential Ord2 [place]% 10.7 % 08/17/2015 Cbc With Differential Ord2 [...] 1.49 K/ul 08/17/2015 Cbc With Differential Ord2 [place] ABS# 0.4 K/ul 08/17/2015 Cbc With Differential [...] CPT-4: J0696 06/28/2017 THER/PROPH/DIAG INJ SC/IM CPT-4: 13907 06/28/2017 PPPS, SUBSEQ VISIT CPT -4: G0439 01/10/2017 Vital Signs Date Vital 07/06/2017 Blood Pressure 1: 126/74 Code : 8480-6 BMI: 25.3 Code : 00356-5 Heart Rate 1 : 70 bpm Height: 5'5" SpO2: 95% Weight: 152 lbs 06/28/2017 Blood Pressure 1: 126/64 Code : 8480-6 BMI: 25.3 Code : 59385-1 Heart Rate 1 : 58 bpm Height: 5'5" SpO2: 97% Temperature: 36.8 (C) / 98.3 (F) Weight: 152 lbs 01/10/2017 BMI: 25.8 Code: 01498-1 Height: 5'5" Weight: 155 lbs 01/02/2017 Blood Pressure 1: 138/78 Code : 8480-6 BMI: 25.8 Code : 29984-5 Heart Rate 1 : 58 bpm Height: 5'5" SpO2: 98% Weight: 155 lbs 06/23/2016 Blood Pressure 1: 138/78 Code : 8480-6 BMI: 25.8 Code : 75064-6 Height: 5'5" Weight: 155 lbs 05/19/2016 Blood Pressure 1: 138/80 Code : 8480-6 BMI: 25.6 Code : 17690-2 Heart Rate 1 : 61 bpm Height: 5'5" SpO2: 98% Weight: 154 lbs 02/25/2016 Blood Pressure 1: 158/82 Code : 8480-6 BMI: 24.9 Code : 67515-1 Heart Rate 1 : 66 bpm Height: 5'5" SpO2: 97% Weight: 149 lbs 8 oz 11/24/2015 Blood Pressure 1: 132/70 Code : 8480-6 BMI: 24.8 Code : 77025-7 Heart Rate 1 : 71 bpm Height: 5'5" SpO2: 98% Weight: 149 lbs 11/03/2015 Blood Pressure 1: 150/80 Code : 8480-6 Blood Pressure 1: 140/80 Code: 8480-6 BMI: 24.8 Code: 09186-5 Heart Rate 1: 71 bpm Height: 5'5" SpO2: 96% Weight: 149 lbs 08/17/2015 Blood Pressure 1: 140/80 Code : 8480-6 BMI: 24.3 Code : 49234-6 Heart Rate 1 : 63 bpm Height: [...] data Encounters Encounter Performer Location Codes Date ([id number]) [id number] EST. PATIENT, LEVEL III Diagnosis: Essential (primary) hypertension[ICD10: I10] Dilma Tran MD, [facility] CPT-4: 27287 07/06/2017 [id number] EST. PATIENT, LEVEL III Diagnosis: Acute laryngopharyngitis[ICD10: J06.0] Diagnosis: Other allergic rhinitis[ICD10: J30.89] April Tran MD, [facility] CPT-4: 06808 06/28/2017 [id number] 10533 EST. PATIENT, LEVEL IV Diagnosis: Essential (primary) hypertension[ICD10: I10] Diagnosis: Major depressive disorder, single episode, mild[ICD10: F32.0] Diagnosis: Generalized anxiety disorder[ICD10: F41.1] [facility] CPT-4: 46519 01/02/2017 [id number] 63387 EST. PATIENT, LEVEL III Diagnosis: Essential (primary) hypertension[ICD10: I10] Diagnosis: Generalized anxiety disorder[ICD10: F41.1] Dilma Tran MD, [facility] CPT-4: 82441 06/23/2016 ([id number]) 22600 EST. PATIENT, LEVEL III Diagnosis: Essential (primary) hypertension[ICD10: I10] Diagnosis: Major depressive disorder, single episode, mild[ICD10: F32.0] Dilma Tran MD, [facility] CPT-4: 36384 05/19/2016 ([id number]) 97573 EST. PATIENT, LEVEL IV Diagnosis: Essential (primary) hypertension[ICD10: I10] Diagnosis: Localized edema[ICD10: R60.0] Diagnosis: Generalized anxiety disorder[ICD10: F41.1] Dilma Tran MD, [facility] CPT-4: 86080 02/25/2016 ([id number]) 18064 EST. PATIENT, LEVEL IV Diagnosis: Essential (primary) hypertension[ICD10: I10] Diagnosis: Major depressive disorder, single episode, unspecified[ICD10: F32.9] Diagnosis: Generalized anxiety disorder[ICD10: F41.1] Dilma Tran MD, [facility] CPT-4: 93502 11/24/2015 ([id number]) 17160 EST. PATIENT, LEVEL IV Diagnosis: Essential (primary) hypertension[ICD10: I10] Diagnosis: Major depressive disorder, single episode, unspecified[ICD10: F32.9] Dilma Tran MD, [facility] CPT-4: 26935 11/03/2015 ([id number]) OFFICE VISIT, NEW - LEVEL 4 Diagnosis: Generalized anxiety disorder[ICD10: F41.1] Diagnosis: Major depressive disorder, single episode, unspecified[ICD10: F32.9] Diagnosis: Vitamin D deficiency, unspecified[ICD10: E55.9] Diagnosis: Iron deficiency anemia, unspecified[ICD10: D50.9] Diagnosis: Unspecified osteoarthritis, unspecified site[ICD10: M19.90] Georgette Tran MD, [facility] CPT-4: 55472 08/17/2015 Plan of Care Planned Activity Notes Codes Status Date Visit Plan: Hypertension - well controlled - continue with current medications, continue with no added salt diet. Pt has been encouraged to exercise daily. The pt has been advised to call the office if there are any acute concerns about change in blood pressure readings at home. 07/06/2017 Appointment: Dilma Tran WPtel: [phone] [facility] (15 min) Moderate 07/06/2017 Patient Education: Patient [...] spray. 06/28/2017 Appointment: April Wallace WPtel: [phone] [facility] [address] (15 min) Moderate 06/28/2017 Patient Education: Patient [...] surrogate. 01/10/2017 Appointment: April Wallace WPtel: [address] [facility] [address] [facility] - Annual Wellness Visit 01/10/2017 Patient Education: [...] current medications. 01/02/2017 [phone] (15 min) Moderate 01/02/2017 Patient Education: Patient [...] medications. 06/23/2016 Appointment: Dilma Tran WPtel: [facility] (15 min) Moderate 06/23/2016 Patient Education: Patient Medication Summary Completed 06/23/2016 Care Plan: Referral Order SNOMED-CT : [id number] Pending 06/23/2016 Visit Plan: Hypertension - uncontrolled [...] daily. 05/19/2016 Appointment: [phone] (15 min) Moderate 05/19/2016 Patient Education: Patient [...] daily. 02/25/2016 Appointment: [facility]el[phone] (15 min) Moderate 02/25/2016 Patient Education: Patient [...] this patient. 11/03/2015 Appointment: Dilma Tran WPtel: [facility] (15 min) Moderate 11/03/2015 Patient Education: Patient Medication Summary Completed 11/03/2015 Patient Education: Hypertension Completed 11/03/2015 Patient Education: Patient Medication Summary Completed 08/21/2015 Visit Plan: Avurjnf-xnihmidctc-nrcumfg not taking any medications at this time-will [...] and keep you up. Take a probiotic (Interhyplle, EyeEm or generic) while on the antibiotic. URI [...] exposure. No change in current medications. . Pbhhybv-ejcdwzrgya-rpvainm not taking any medications at this time-will [...]
--- OUTSIDE RECORDS SUMMARY | 2018-06-19 12:27 | XMS REPORT | CCD ---
Author Author Georgette Milner Organization Dilma Tran MD, [facility] Address [address] [place] [address] Phone Care Team Providers Care Room Service Manager Name Role Phone PP Unavailable CCM Unavailable Summary Purpose Interface Exchange Insurance Providers Payer name Policy type / Coverage type Covered republican ID Effective Begin Date Effective End Date WPS Medicare Part B Medicare Part B [id number] Unknown Unknown [employer] Medicare Part B [id number] Unknown Unknown Family history Mother Diagnosis Age [...] Unknown Retired 08/17/[address]: 242976129 Never smoker 08/17/[address]: 989161154 Never drinks alcohol 08/17/2015 Allergies, Adverse Reactions, Alerts Substance Reaction Codes Entered Date Inactivated Date Status levothyroxine drowsiness RxNorm: 18819 07/24/2017 No Inactive Date Active CODEINE emesis [...] Start Date Stop Date Status Fill Instructions escitalopram 20 mg tablet RxNorm: 746617 1 Tablet(s) daily 02/11/2018 Active losartan 100 mg-hydrochlorothiazide 12.5 mg tablet RxNorm: 369983 Tablet(s) TAKE ONE TABLET BY MOUTH ONCE DAILY 08/16/2017 No Stop Date Active escitalopram 20 mg tablet RxNorm: 343534 1 Tablet(s) daily 08/15/2017 Inactive escitalopram 20 mg tablet RxNorm: 455266 1 Tablet(s) daily 08/15/2017 Inactive levothyroxine 50 mcg tablet RxNorm: 265710 1 Tablet(s) PO daily 07/21/2017 07/20/2017 Inactive this is a new higher dose - dc the lower dose from her med refill que levothyroxine 50 mcg tablet RxNorm: 729167 1 Tablet(s) PO daily 07/21/2017 07/23/2017 Inactive this is a new higher dose - dc the lower dose from her med refill que Kenalog 40 mg/mL suspension for injection RxNorm: 9640802 1 Milliliter(s) Inj 06/28/2017 06/28/2017 Inactive prednisone 20 mg tablet RxNorm: 797247 2 Tablet(s) PO daily 07/02/2017 Inactive ceftriaxone 500 mg solution for injection RxNorm: 1457626 1 Milliliter(s) Inj 06/28/2017 06/28/2017 Inactive Keflex 500 mg capsule RxNorm: 862873 1 Capsule(s) PO TID 201607/07/2017 Inactive Zithromax Z-Bob 250 mg tablet RxNorm: 002519 1 Tablet(s) PO UD 06/23/2017 06/27/2017 Inactive Pepcid 20 mg tablet RxNorm: 303075 1 Tablet(s) PO BID 201607/23/2017 Inactive Zithromax Z-Bob 250 mg tablet RxNorm: 033069 1 Tablet(s) PO UD 06/23/2017 06/22/2017 Inactive Pepcid 20 mg tablet RxNorm: 261625 1 Tablet(s) PO BID 201606/22/2017 Inactive losartan 100 mg-hydrochlorothiazide 12.5 mg tablet RxNorm: 030425 TAKE ONE TABLET BY MOUTH ONCE DAILY 05/19/2017 08/15/2017 Inactive escitalopram 20 mg tablet RxNorm: 141712 TAKE ONE-HALF TABLET BY MOUTH TWICE DAILY 02/20/2017 07/23/2017 Inactive levothyroxine 25 mcg tablet RxNorm: 334405 1 Tablet(s) PO daily 01/27/2017 01/26/2017 Inactive levothyroxine 25 mcg tablet RxNorm: 419116 1 Tablet(s) PO daily 01/27/2017 05/26/2017 Inactive levothyroxine 25 mcg tablet RxNorm: 636711 1 Tablet(s) PO daily 01/27/2017 01/26/2017 Inactive escitalopram 20 mg tablet RxNorm: 153670 TAKE ONE-HALF TABLET BY MOUTH TWICE DAILY 12/19/2016 02/16/2017 Inactive escitalopram 20 mg tablet RxNorm: 476408 Tablet(s) TAKE ONE-HALF TABLET BY MOUTH TWICE DAILY 09/21/2016 06/17/2017 Inactive escitalopram 20 mg tablet RxNorm: 521469 TAKE ONE-HALF TABLET BY MOUTH TWICE DAILY 09/21/2016 09/20/2016 Inactive escitalopram 20 mg tablet RxNorm: 654295 1/2 Tablet(s) PO BID 05/19/2016 09/15/2016 Inactive losartan 100 mg-hydrochlorothiazide 12.5 mg tablet RxNorm: 232999 1 Tablet(s) PO daily 05/19/2016 05/13/2017 Inactive losartan 50 mg-hydrochlorothiazide 12.5 mg tablet RxNorm: 789209 1 Tablet(s) PO daily 02/25/2016 05/18/2016 Inactive escitalopram 10 mg tablet RxNorm: 288399 1/2 Tablet(s) PO BID 02/25/2016 05/18/2016 Inactive losartan 25 mg tablet RxNorm: 179379 1 Tablet(s) PO daily 201502/24/2016 Inactive Lexapro 5 mg tablet RxNorm: 985833 1 Tablet(s) PO QPM 201502/24/2016 Inactive Vitamin D2 50,000 unit capsule RxNorm: 223047 1 Capsule(s) PO QW 08/21/2015 11/23/2015 Inactive melatonin 3 mg tablet RxNorm: 942952 1 Tablet(s) PO QHS No Start Date Active Super B-Complex oral RxNorm: oral No Start Date Active bilberry 100 mg capsule RxNorm: 709986 1 Capsule(s) PO daily No Start Date Active Calcium 500 + D 500 mg (1,250 mg)-200 unit tablet RxNorm: 424069 1 Tablet(s) PO daily No Start Date 07/23/2017 Inactive Vitamin D2 oral RxNorm : 4018 oral No Start Date 08/21/2015 Inactive Vitamin D3 2,000 unit tablet RxNorm: 353453 1 Tablet(s) PO daily No Start Date 07/23/2017 Inactive boron oral RxNorm: 1705 oral No Start Date 11/23/2015 Inactive Joint Formula tablet RxNorm: 1 Tablet(s) PO BID No Start Date 07/23/2017 Inactive Vitamin D2 50,000 unit capsule RxNorm: 566414 1 Capsule(s) PO QW No Start Date 08/20/2015 Inactive Medication Administered Medication Codes Instructions Start Date Status Kenalog 40 mg/mL suspension for injection RxNorm: 7236347 1Milliliter 06/28/2017 No longer Active ceftriaxone 500 mg solution for injection RxNorm: 7471203 1Milliliter 06/28/2017 No longer Active Immunizations No [...] Ord6 hTSH II 4.86 uIU/mL 07/21/2017 Hepatic Tlv066 ALBUMIN 3.8 g/dL 07/21/2017 Hepatic Dii690 TPRO 6.1 g/dL 07/21/2017 Hepatic Duj838 GLOB 2.3 g/dL 07/21/2017 Hepatic Syb869 A/G Ratio 1.6 Ratio 07/21/2017 Hepatic Zhz547 ALK PHOS 75 U/L 07/21/2017 Hepatic Oze700 ALT(SGPT) 21 U/L 07/21/2017 Hepatic Vbj517 AST(SGOT) 18 U/L 07/21/2017 Hepatic Dhm625 BILI T 0.3 mg/dL 07/21/2017 Hepatic Drt742 BILI D 0.1 mg/dL 07/21/2017 Hepatic Ked380 BILI I 0.2 mg/dL 07/21/2017 Free T4 Lof859 FREE T4 0.84 ng/dL 07/21/2017 Lipid Ord30 CHOL 202 mg/dL 07/21/2017 Lipid Ord30 HDL 60.0 mg/dl 07/21/2017 Lipid Ord30 TRIG 80 mg/dL 07/21/2017 Lipid Ord30 LDL 126 mg/dL 07/21/2017 Lipid Ord30 C/HDL 3.4 Ratio 07/21/2017 Free T4 Wqo047 FREE T4 0.96 ng/dL 04/28/2017 Lipid Ord30 CHOL 195 mg/dL 04/28/2017 Lipid Ord30 HDL 53.0 mg/dl 04/28/2017 Lipid Ord30 TRIG 96 mg/dL 04/28/2017 Lipid Ord30 LDL 123 mg/dL 04/28/2017 Lipid Ord30 C/HDL 3.7 Ratio 04/28/2017 Tsh Ord6 hTSH II 3.95 uIU/mL 04/28/2017 Hepatic Iui267 ALBUMIN 4.0 g/dL 04/28/2017 Hepatic Ypk993 TPRO 6.2 g/dL 04/28/2017 Hepatic Lir737 GLOB 2.2 g/dL 04/28/2017 Hepatic Vwj545 A/G Ratio 1.8 Ratio 04/28/2017 Hepatic Umt664 ALK PHOS 77 U/L 04/28/2017 Hepatic Dew475 ALT(SGPT) 14 U/L 04/28/2017 Hepatic Smj007 AST(SGOT) 17 U/L 04/28/2017 Hepatic Okd843 BILI T 0.6 mg/dL 04/28/2017 Hepatic Oet865 BILI D 0.1 mg/dL 04/28/2017 Hepatic Ply793 BILI I 0.5 mg/dL 04/28/2017 Free T4 Pgo351 FREE T4 0.78 ng/dL 02/01/2017 Comp Metabolic Nnp864 NA 138 mEq/L 01/26/2017 Comp Metabolic Bxi985 K 5.4 mEq/L 01/26/2017 Comp Metabolic Dph614 CL 102 mEq/L 01/26/2017 Comp Metabolic Avg873 CO2 30.0 mEq/L 01/26/2017 Comp Metabolic Kma451 ANION GAP 11 01/26/2017 Comp Metabolic Fts431 GLUCOSE 93 mg/dL 01/26/2017 Comp Metabolic Cfw705 Creat 0.8 mg/dL 01/26/2017 Comp Metabolic Yjv176 eGFR 71 ml/min/1.73m2 01/26/2017 Comp Metabolic Fob738 BUN 13 mg/dL 01/26/2017 Comp Metabolic Rxn850 B/C Ratio 15.9 Ratio 01/26/2017 Comp Metabolic Vhn850 CALCIUM 9.5 mg/dL 01/26/2017 Comp Metabolic Bpi600 ALK PHOS 71 U/L 01/26/2017 Comp Metabolic Zkp828 AST(SGOT) 15 U/L 01/26/2017 Comp Metabolic Wff779 ALT(SGPT) 11 U/L 01/26/2017 Comp Metabolic Tfj538 BILI T 0.5 mg/dL 01/26/2017 Comp Metabolic Pud337 ALBUMIN 4.0 g/dL 01/26/2017 Comp Metabolic Xtf929 TPRO 6.4 g/dL 01/26/2017 Comp Metabolic Tna258 GLOB 2.4 g/dL 01/26/2017 Comp Metabolic Xoz923 A/G Ratio 1.7 Ratio 01/26/2017 Comp Metabolic Mtq292 Osmo 275 mOsmo 01/26/2017 Bili D Ord93 [...] 29.8 pg 01/26/2017 Cbc With Differential Ord2 Howard% 8.9 % 01/26/2017 Cbc With Differential Ord2 [...] 2.01 K/ul 01/26/2017 Cbc With Differential Ord2 Howard ABS# 0.4 K/ul 01/26/2017 Cbc With Differential [...] Ord30 C/HDL 3.4 Ratio 07/22/2016 Comp Metabolic Wha529 NA 137 mEq/L 07/22/2016 Comp Metabolic Xwg472 K 4.3 mEq/L 07/22/2016 Comp Metabolic Ivu640 CL 101 mEq/L 07/22/2016 Comp Metabolic Dze131 CO2 31.0 mEq/L 07/22/2016 Comp Metabolic Mgj481 ANION GAP 9 07/22/2016 Comp Metabolic Ogo448 GLUCOSE 90 mg/dL 07/22/2016 Comp Metabolic Gme365 Creat 0.9 mg/dL 07/22/2016 Comp Metabolic Zjx274 eGFR 64 ml/min/1.73m2 07/22/2016 Comp Metabolic Swz539 BUN 9 mg/dL 07/22/2016 Comp Metabolic Gox119 B/C Ratio 10.0 Ratio 07/22/2016 Comp Metabolic Cgk622 CALCIUM 9.4 mg/dL 07/22/2016 Comp Metabolic Cnh232 ALK PHOS 65 U/L 07/22/2016 Comp Metabolic Uqe237 AST(SGOT) 16 U/L 07/22/2016 Comp Metabolic Oxr505 ALT(SGPT) 13 U/L 07/22/2016 Comp Metabolic Rbz840 BILI T 0.4 mg/dL 07/22/2016 Comp Metabolic Ucq787 ALBUMIN 4.2 g/dL 07/22/2016 Comp Metabolic Sao001 TPRO 6.6 g/dL 07/22/2016 Comp Metabolic Mce455 GLOB 2.4 g/dL 07/22/2016 Comp Metabolic Apx169 A/G Ratio 1.7 Ratio 07/22/2016 Comp Metabolic Yil999 Osmo 272 mOsmo 07/22/2016 Tsh Ord6 hTSH II 3.94 uIU/mL 07/22/2016 Vitamin D 25 Oh Yco8636 VITAMIN D, 25 HYDROXY 55.11 ng/mL Comp Metabolic Qpz891 NA 139 mEq/L 11/02/2015 Comp Metabolic Cfh734 K 4.3 mEq/L 11/02/2015 Comp Metabolic Hbm888 CL 103 mEq/L 11/02/2015 Comp Metabolic Bxx178 CO2 29.0 mEq/L 11/02/2015 Comp Metabolic Cuk949 ANION GAP 11 11/02/2015 Comp Metabolic Pom253 GLUCOSE 87 mg/dL 11/02/2015 Comp Metabolic Ncg751 Creat 0.8 mg/dL 11/02/2015 Comp Metabolic Zkb703 eGFR 70 ml/min/1.73m2 11/02/2015 Comp Metabolic Cdg790 BUN 11 mg/dL 11/02/2015 Comp Metabolic Nek722 B/C Ratio 13.1 Ratio 11/02/2015 Comp Metabolic Pgy533 CALCIUM 9.0 mg/dL 11/02/2015 Comp Metabolic Gvz181 ALK PHOS 90 U/L 11/02/2015 Comp Metabolic Ohc365 AST(SGOT) 15 U/L 11/02/2015 Comp Metabolic Ccb519 ALT(SGPT) 12 U/L 11/02/2015 Comp Metabolic Kdu101 BILI T 0.5 mg/dL 11/02/2015 Comp Metabolic Zzw086 ALBUMIN 3.7 g/dL 11/02/2015 Comp Metabolic Sji801 TPRO 6.2 g/dL 11/02/2015 Comp Metabolic Yvw727 GLOB 2.5 g/dL 11/02/2015 Comp Metabolic Kry675 A/G Ratio 1.5 Ratio 11/02/2015 Comp Metabolic Nov266 Osmo 276 mOsmo 11/02/2015 Iron Ord72 Iron 36 ug/dl 08/25/2015 Vitamin D 25 Oh Tdi3984 VITAMIN D, 25 HYDROXY 26.14 ng/mL Comp Metabolic Xrn778 NA 138 mEq/L 08/17/2015 Comp Metabolic Guq621 K 4.5 mEq/L 08/17/2015 Comp Metabolic Nrp714 CL 100 mEq/L 08/17/2015 Comp Metabolic Bfh992 CO2 29.0 mEq/L 08/17/2015 Comp Metabolic Snc490 ANION GAP 14 08/17/2015 Comp Metabolic Xvq131 GLUCOSE 88 mg/dL 08/17/2015 Comp Metabolic Tqm420 Creat 0.8 mg/dL 08/17/2015 Comp Metabolic Ljb136 eGFR 74 ml/min/1.73m2 08/17/2015 Comp Metabolic Oiy672 BUN 9 mg/dL 08/17/2015 Comp Metabolic Sum194 B/C Ratio 11.3 Ratio 08/17/2015 Comp Metabolic Krf962 CALCIUM 9.1 mg/dL 08/17/2015 Comp Metabolic Bpf159 ALK PHOS 88 U/L 08/17/2015 Comp Metabolic Zup973 AST(SGOT) 16 U/L 08/17/2015 Comp Metabolic Yul794 ALT(SGPT) 13 U/L 08/17/2015 Comp Metabolic Qpq081 BILI T 0.4 mg/dL 08/17/2015 Comp Metabolic Pei042 ALBUMIN 4.0 g/dL 08/17/2015 Comp Metabolic Mgl158 TPRO 6.5 g/dL 08/17/2015 Comp Metabolic Zls275 GLOB 2.5 g/dL 08/17/2015 Comp Metabolic Kus692 A/G Ratio 1.6 Ratio 08/17/2015 Comp Metabolic Zov818 Osmo 274 mOsmo 08/17/2015 Cbc With Differential [...] 27.6 pg 08/17/2015 Cbc With Differential Ord2 Howard% 10.7 % 08/17/2015 Cbc With Differential Ord2 [...] 1.49 K/ul 08/17/2015 Cbc With Differential Ord2 Howard ABS# 0.4 K/ul 08/17/2015 Cbc With Differential [...] CPT-4: J0696 06/28/2017 THER/PROPH/DIAG INJ SC/IM CPT-4: 11468 06/28/2017 PPPS, SUBSEQ VISIT CPT -4: G0439 01/10/2017 Vital Signs Date Vital 07/06/2017 Blood Pressure 1: 126/74 Code : 8480-6 BMI: 25.3 Code : 71159-7 Heart Rate 1 : 70 bpm Height: 5'5" SpO2: 95% Weight: 152 lbs 06/28/2017 Blood Pressure 1: 126/64 Code : 8480-6 BMI: 25.3 Code : 80944-5 Heart Rate 1 : 58 bpm Height: 5'5" SpO2: 97% Temperature: 36.8 (C) / 98.3 (F) Weight: 152 lbs 01/10/2017 BMI: 25.8 Code: 99604-3 Height: 5'5" Weight: 155 lbs 01/02/2017 Blood Pressure 1: 138/78 Code : 8480-6 BMI: 25.8 Code : 58630-0 Heart Rate 1 : 58 bpm Height: 5'5" SpO2: 98% Weight: 155 lbs 06/23/2016 Blood Pressure 1: 138/78 Code : 8480-6 BMI: 25.8 Code : 33584-2 Height: 5'5" Weight: 155 lbs 05/19/2016 Blood Pressure 1: 138/80 Code : 8480-6 BMI: 25.6 Code : 49121-3 Heart Rate 1 : 61 bpm Height: 5'5" SpO2: 98% Weight: 154 lbs 02/25/2016 Blood Pressure 1: 158/82 Code : 8480-6 BMI: 24.9 Code : 94289-0 Heart Rate 1 : 66 bpm Height: 5'5" SpO2: 97% Weight: 149 lbs 8 oz 11/24/2015 Blood Pressure 1: 132/70 Code : 8480-6 BMI: 24.8 Code : 43840-8 Heart Rate 1 : 71 bpm Height: 5'5" SpO2: 98% Weight: 149 lbs 11/03/2015 Blood Pressure 1: 150/80 Code : 8480-6 Blood Pressure 1: 140/80 Code: 8480-6 BMI: 24.8 Code: 84062-4 Heart Rate 1: 71 bpm Height: 5'5" SpO2: 96% Weight: 149 lbs 08/17/2015 Blood Pressure 1: 140/80 Code : 8480-6 BMI: 24.3 Code : 75792-5 Heart Rate 1 : 63 bpm Height: [...] data Encounters Encounter Performer Location Codes Date ([id number]) [id number] EST. PATIENT, LEVEL III Diagnosis: Essential (primary) hypertension[ICD10: I10] [facility] CPT-4: 31861 07/06/2017 [id number] EST. PATIENT, LEVEL III Diagnosis: Acute laryngopharyngitis[ICD10: J06.0] Diagnosis: Other allergic rhinitis[ICD10: J30.89] April Tran MD, [facility] CPT-4: 60342 06/28/2017 ([id number]) 40061 EST. PATIENT, LEVEL IV Diagnosis: Essential (primary) hypertension[ICD10: I10] Diagnosis: Major depressive disorder, single episode, mild[ICD10: F32.0] Diagnosis: Generalized anxiety disorder[ICD10: F41.1] Dilma Tran MD, [facility] CPT-4: 61692 01/02/2017 ([id number]) 26410 EST. PATIENT, LEVEL III Diagnosis: Essential (primary) hypertension[ICD10: I10] Diagnosis: Generalized anxiety disorder[ICD10: F41.1] Dilma Tran MD, [facility] CPT-4: 10944 06/23/2016 ([id number]) 35352 EST. PATIENT, LEVEL III Diagnosis: Essential (primary) hypertension[ICD10: I10] Diagnosis: Major depressive disorder, single episode, mild[ICD10: F32.0] Dilma Tran MD, [facility] CPT-4: 60880 05/19/2016 ([id number]) 08838 EST. PATIENT, LEVEL IV Diagnosis: Essential (primary) hypertension[ICD10: I10] Diagnosis: Localized edema[ICD10: R60.0] Diagnosis: Generalized anxiety disorder[ICD10: F41.1] Dilma Tran MD, [facility] CPT-4: 81182 02/25/2016 ([id number]) 16950 EST. PATIENT, LEVEL IV Diagnosis: Essential (primary) hypertension[ICD10: I10] Diagnosis: Major depressive disorder, single episode, unspecified[ICD10: F32.9] Diagnosis: Generalized anxiety disorder[ICD10: F41.1] Dilma Tran MD, [facility] CPT-4: 51644 11/24/2015 ([id number]) 38550 EST. PATIENT, LEVEL IV Diagnosis: Essential (primary) hypertension[ICD10: I10] Diagnosis: Major depressive disorder, single episode, unspecified[ICD10: F32.9] [facility] CPT-4: 65857 11/03/2015 ([id number]) OFFICE VISIT, NEW - LEVEL 4 Diagnosis: Generalized anxiety disorder[ICD10: F41.1] Diagnosis: Major depressive disorder, single episode, unspecified[ICD10: F32.9] Diagnosis: Vitamin D deficiency, unspecified[ICD10: E55.9] Diagnosis: Iron deficiency anemia, unspecified[ICD10: D50.9] Diagnosis: Unspecified osteoarthritis, unspecified site[ICD10: M19.90] [facility] CPT-4: 34468 08/17/2015 Plan of Care Planned Activity Notes Codes Status Date Appointment: April Wallace WPtel: [facility] [place] (30 min) Complex 07/24/2017 Visit Plan: Hypertension - well controlled - continue with current medications, continue with no added salt diet. Pt has been encouraged to exercise daily. The pt has been advised to call the office if there are any acute concerns about change in blood pressure readings at home. 07/06/2017 Appointment: Dilma Tran WPtel[facility] [place] ([facility] min) Moderate 07/06/2017 Patient Education: Patient [...] spray. 06/28/2017 [facility]ment: [phone] [place] ([place] min) Moderate 06/28/2017 Patient Education: Patient [...] care surrogate. 01/10/2017 Appointment: April Wallace WPtel: [phone] [facility] [facility] - Annual Wellness Visit 01/10/2017 Patient Education: [...] medications. 01/02/2017 Appointment: [phone] (15 min) Moderate 01/02/2017 Patient Education: Patient Medication Summary Completed 01/02/2017 Referral: Imleda Lyn Patient informed. Referral info faxed. Completed [...] medications. 06/23/2016 Appointment: Dilma Tran WPtel: [phone] [facility] (15 min) Moderate 06/23/2016 Patient Education: Patient Medication Summary Completed 06/23/2016 Care Plan: Referral Order SNOMED-CT : [id number] Pending 06/23/2016 Visit Plan: Hypertension - uncontrolled [...] 100mg/12.5mg daily. 05/19/2016 Appointment: Dil[facility]el[phone] (15 min) Moderate 05/19/2016 Patient Education: Patient [...] daily. 02/25/2016 Appointment: [phone] (15 min) Moderate 02/25/2016 Patient Education: Patient [...] patient. 11/03/2015 Appointment: [facility]el[phone] (15 min) Moderate 11/03/2015 Patient Education: Patient Medication Summary Completed 11/03/2015 Patient Education: Hypertension Completed 11/03/2015 Patient Education: Patient Medication Summary Completed 08/21/2015 Visit Plan: Mztmkgy-glchqzubpe-sdfyetz not taking any medications at this time-will [...] keep you up. Take a probiotic (culturelle, [employer] or generic) while on the antibiotic. URI [...] exposure. No change in current medications. . Yamxnle-zqjrbnoavb-qteewud not taking any medications at this time-will [...]
--- OUTSIDE RECORDS SUMMARY | 2018-06-19 12:29 | XMS REPORT | CCD ---
Author Author Georgette Milner Organization Dilma Tran MD, [facility] Address [address] [place] [address] Phone Care Team Providers Care Chassis Mechanic Name Role Phone PP Unavailable CCM Unavailable Summary Purpose Interface Exchange Insurance Providers Payer name Policy type / Coverage type Covered constitution party ID Effective Begin Date Effective End Date WPS Medicare Part B Medicare Part B [id number] Unknown Unknown [employer] Medicare Part B [id number] Unknown Unknown Family history Mother Diagnosis Age [...] Unknown Retired 08/17/[address]: 672148436 Never smoker 08/17/[address]: 014599133 Never drinks alcohol 08/17/2015 Allergies, Adverse Reactions, [...] Fill Instructions levothyroxine 50 mcg tablet RxNorm: 626035 1 Tablet(s) PO daily 07/21/2017 07/15/2018 Active this is a new higher dose - dc the lower dose from her med refill que levothyroxine 50 mcg tablet RxNorm: 974289 1 Tablet(s) PO daily 07/21/2017 07/20/2017 Inactive this is a new higher dose - dc the lower dose from her med refill que Kenalog 40 mg/mL suspension for injection RxNorm: 1656487 1 Milliliter(s) Inj 06/28/2017 06/28/2017 Inactive prednisone 20 mg tablet RxNorm: 798919 2 Tablet(s) PO daily 07/02/2017 Inactive ceftriaxone 500 mg solution for injection RxNorm: 9332994 1 Milliliter(s) Inj 06/28/2017 06/28/2017 Inactive Keflex 500 mg capsule RxNorm: 332953 1 Capsule(s) PO TID 201607/07/2017 Inactive Pepcid 20 mg tablet RxNorm: 751628 1 Tablet(s) PO BID 201608/21/2017 Active Zithromax Z-Bob 250 mg tablet RxNorm: 009206 1 Tablet(s) PO UD 06/23/2017 06/27/2017 Inactive Zithromax Z-Bob 250 mg tablet RxNorm: 799542 1 Tablet(s) PO UD 06/23/2017 06/22/2017 Inactive Pepcid 20 mg tablet RxNorm: 483245 1 Tablet(s) PO BID 201606/22/2017 Inactive losartan 100 mg-hydrochlorothiazide 12.5 mg tablet RxNorm: 575280 TAKE ONE TABLET BY MOUTH ONCE DAILY 05/19/2017 No Stop Date Active escitalopram 20 mg tablet RxNorm: 733461 TAKE ONE-HALF TABLET BY MOUTH TWICE DAILY 02/20/2017 08/18/2017 Active levothyroxine 25 mcg tablet RxNorm: 957061 1 Tablet(s) PO daily 01/27/2017 01/26/2017 Inactive levothyroxine 25 mcg tablet RxNorm: 797941 1 Tablet(s) PO daily 01/27/2017 05/26/2017 Inactive levothyroxine 25 mcg tablet RxNorm: 112563 1 Tablet(s) PO daily 01/27/2017 01/26/2017 Inactive escitalopram 20 mg tablet RxNorm: 774199 TAKE ONE-HALF TABLET BY MOUTH TWICE DAILY 12/19/2016 02/16/2017 Inactive escitalopram 20 mg tablet RxNorm: 220116 Tablet(s) TAKE ONE-HALF TABLET BY MOUTH TWICE DAILY 09/21/2016 06/17/2017 Inactive escitalopram 20 mg tablet RxNorm: 228309 TAKE ONE-HALF TABLET BY MOUTH TWICE DAILY 09/21/2016 09/20/2016 Inactive escitalopram 20 mg tablet RxNorm: 091130 1/2 Tablet(s) PO BID 05/19/2016 09/15/2016 Inactive losartan 100 mg-hydrochlorothiazide 12.5 mg tablet RxNorm: 259764 1 Tablet(s) PO daily 05/19/2016 05/13/2017 Inactive losartan 50 mg-hydrochlorothiazide 12.5 mg tablet RxNorm: 624603 1 Tablet(s) PO daily 02/25/2016 05/18/2016 Inactive escitalopram 10 mg tablet RxNorm: 962589 1/2 Tablet(s) PO BID 02/25/2016 05/18/2016 Inactive losartan 25 mg tablet RxNorm: 031418 1 Tablet(s) PO daily 201502/24/2016 Inactive Lexapro 5 mg tablet RxNorm: 689398 1 Tablet(s) PO QPM 201502/24/2016 Inactive Vitamin D2 50,000 unit capsule RxNorm: 924085 1 Capsule(s) PO QW 08/21/2015 11/23/2015 Inactive Calcium 500 + D 500 mg (1,250 mg)-200 unit tablet RxNorm: 239447 1 Tablet(s) PO daily No Start Date Active Vitamin D3 2,000 unit tablet RxNorm: 032362 1 Tablet(s) PO daily No Start Date Active melatonin 3 mg tablet RxNorm: 029129 1 Tablet(s) PO QHS No Start Date Active Joint Formula tablet RxNorm: 1 Tablet(s) PO BID No Start Date Active Super B-Complex oral RxNorm: oral No Start Date Active bilberry 100 mg capsule RxNorm: 053103 1 Capsule(s) PO daily No Start Date Active Vitamin D2 oral RxNorm : 4018 oral No Start Date 08/21/2015 Inactive boron oral RxNorm: 1705 oral No Start Date 11/23/2015 Inactive Vitamin D2 50,000 unit capsule RxNorm: 749122 1 Capsule(s) PO QW No Start Date 08/20/2015 Inactive Medication Administered Medication Codes Instructions Start Date Status Kenalog 40 mg/mL suspension for injection RxNorm: 1561096 1Milliliter 06/28/2017 No longer Active ceftriaxone 500 mg solution for injection RxNorm: 7088808 1Milliliter 06/28/2017 No longer Active Immunizations No [...] Ord6 hTSH II 4.86 uIU/mL 07/21/2017 Hepatic Azw266 ALBUMIN 3.8 g/dL 07/21/2017 Hepatic Vhc852 TPRO 6.1 g/dL 07/21/2017 Hepatic Uje735 GLOB 2.3 g/dL 07/21/2017 Hepatic Ljp449 A/G Ratio 1.6 Ratio 07/21/2017 Hepatic Yix492 ALK PHOS 75 U/L 07/21/2017 Hepatic Xht437 ALT(SGPT) 21 U/L 07/21/2017 Hepatic Bis626 AST(SGOT) 18 U/L 07/21/2017 Hepatic Bqw218 BILI T 0.3 mg/dL 07/21/2017 Hepatic Lmd232 BILI D 0.1 mg/dL 07/21/2017 Hepatic Kvp478 BILI I 0.2 mg/dL 07/21/2017 Free T4 Ued554 FREE T4 0.84 ng/dL 07/21/2017 Lipid Ord30 CHOL 202 mg/dL 07/21/2017 Lipid Ord30 HDL 60.0 mg/dl 07/21/2017 Lipid Ord30 TRIG 80 mg/dL 07/21/2017 Lipid Ord30 LDL 126 mg/dL 07/21/2017 Lipid Ord30 C/HDL 3.4 Ratio 07/21/2017 Free T4 Tlh309 FREE T4 0.96 ng/dL 04/28/2017 Lipid Ord30 CHOL 195 mg/dL 04/28/2017 Lipid Ord30 HDL 53.0 mg/dl 04/28/2017 Lipid Ord30 TRIG 96 mg/dL 04/28/2017 Lipid Ord30 LDL 123 mg/dL 04/28/2017 Lipid Ord30 C/HDL 3.7 Ratio 04/28/2017 Tsh Ord6 hTSH II 3.95 uIU/mL 04/28/2017 Hepatic Iob487 ALBUMIN 4.0 g/dL 04/28/2017 Hepatic Uds630 TPRO 6.2 g/dL 04/28/2017 Hepatic Skw509 GLOB 2.2 g/dL 04/28/2017 Hepatic Uxe673 A/G Ratio 1.8 Ratio 04/28/2017 Hepatic Lxe217 ALK PHOS 77 U/L 04/28/2017 Hepatic Yyq773 ALT(SGPT) 14 U/L 04/28/2017 Hepatic Xyz920 AST(SGOT) 17 U/L 04/28/2017 Hepatic Zpj730 BILI T 0.6 mg/dL 04/28/2017 Hepatic Tvq039 BILI D 0.1 mg/dL 04/28/2017 Hepatic Njg994 BILI I 0.5 mg/dL 04/28/2017 Free T4 Kzr775 FREE T4 0.78 ng/dL 02/01/2017 Comp Metabolic Uht344 NA 138 mEq/L 01/26/2017 Comp Metabolic Wuv302 K 5.4 mEq/L 01/26/2017 Comp Metabolic Nwm268 CL 102 mEq/L 01/26/2017 Comp Metabolic Hri510 CO2 30.0 mEq/L 01/26/2017 Comp Metabolic Epy476 ANION GAP 11 01/26/2017 Comp Metabolic Zxo177 GLUCOSE 93 mg/dL 01/26/2017 Comp Metabolic Chj256 Creat 0.8 mg/dL 01/26/2017 Comp Metabolic Lum970 eGFR 71 ml/min/1.73m2 01/26/2017 Comp Metabolic Ddu358 BUN 13 mg/dL 01/26/2017 Comp Metabolic Amn999 B/C Ratio 15.9 Ratio 01/26/2017 Comp Metabolic Yce695 CALCIUM 9.5 mg/dL 01/26/2017 Comp Metabolic Xsp807 ALK PHOS 71 U/L 01/26/2017 Comp Metabolic Awj272 AST(SGOT) 15 U/L 01/26/2017 Comp Metabolic Del093 ALT(SGPT) 11 U/L 01/26/2017 Comp Metabolic Htr000 BILI T 0.5 mg/dL 01/26/2017 Comp Metabolic Hfz670 ALBUMIN 4.0 g/dL 01/26/2017 Comp Metabolic Cgs955 TPRO 6.4 g/dL 01/26/2017 Comp Metabolic Ilp685 GLOB 2.4 g/dL 01/26/2017 Comp Metabolic Mbg436 A/G Ratio 1.7 Ratio 01/26/2017 Comp Metabolic Vbw191 Osmo 275 mOsmo 01/26/2017 Bili D Ord93 [...] 29.8 pg 01/26/2017 Cbc With Differential Ord2 [place]% 8.9 % 01/26/2017 Cbc With Differential Ord2 [...] 2.01 K/ul 01/26/2017 Cbc With Differential Ord2 [place] ABS# 0.4 K/ul 01/26/2017 Cbc With Differential [...] Ord30 C/HDL 3.4 Ratio 07/22/2016 Comp Metabolic Qxy557 NA 137 mEq/L 07/22/2016 Comp Metabolic Ovd178 K 4.3 mEq/L 07/22/2016 Comp Metabolic Uka284 CL 101 mEq/L 07/22/2016 Comp Metabolic Csl358 CO2 31.0 mEq/L 07/22/2016 Comp Metabolic Rvk998 ANION GAP 9 07/22/2016 Comp Metabolic Nkd542 GLUCOSE 90 mg/dL 07/22/2016 Comp Metabolic Azs638 Creat 0.9 mg/dL 07/22/2016 Comp Metabolic Wsz444 eGFR 64 ml/min/1.73m2 07/22/2016 Comp Metabolic Kfo216 BUN 9 mg/dL 07/22/2016 Comp Metabolic Uyo040 B/C Ratio 10.0 Ratio 07/22/2016 Comp Metabolic Kfy965 CALCIUM 9.4 mg/dL 07/22/2016 Comp Metabolic Quq659 ALK PHOS 65 U/L 07/22/2016 Comp Metabolic Bzs709 AST(SGOT) 16 U/L 07/22/2016 Comp Metabolic Tmx014 ALT(SGPT) 13 U/L 07/22/2016 Comp Metabolic Ama831 BILI T 0.4 mg/dL 07/22/2016 Comp Metabolic Rpt874 ALBUMIN 4.2 g/dL 07/22/2016 Comp Metabolic Nmt757 TPRO 6.6 g/dL 07/22/2016 Comp Metabolic Wql772 GLOB 2.4 g/dL 07/22/2016 Comp Metabolic Aud123 A/G Ratio 1.7 Ratio 07/22/2016 Comp Metabolic Dbo942 Osmo 272 mOsmo 07/22/2016 Tsh Ord6 hTSH II 3.94 uIU/mL 07/22/2016 Vitamin D 25 Oh Ctr0519 VITAMIN D, 25 HYDROXY 55.11 ng/mL Comp Metabolic Eor289 NA 139 mEq/L 11/02/2015 Comp Metabolic Apc338 K 4.3 mEq/L 11/02/2015 Comp Metabolic Nbz576 CL 103 mEq/L 11/02/2015 Comp Metabolic Swl304 CO2 29.0 mEq/L 11/02/2015 Comp Metabolic Shn924 ANION GAP 11 11/02/2015 Comp Metabolic Tpq296 GLUCOSE 87 mg/dL 11/02/2015 Comp Metabolic Iwh381 Creat 0.8 mg/dL 11/02/2015 Comp Metabolic Waz896 eGFR 70 ml/min/1.73m2 11/02/2015 Comp Metabolic Bhm336 BUN 11 mg/dL 11/02/2015 Comp Metabolic Rtw449 B/C Ratio 13.1 Ratio 11/02/2015 Comp Metabolic Xss511 CALCIUM 9.0 mg/dL 11/02/2015 Comp Metabolic Wrl946 ALK PHOS 90 U/L 11/02/2015 Comp Metabolic Npn173 AST(SGOT) 15 U/L 11/02/2015 Comp Metabolic Fzo331 ALT(SGPT) 12 U/L 11/02/2015 Comp Metabolic Vaa328 BILI T 0.5 mg/dL 11/02/2015 Comp Metabolic Oin952 ALBUMIN 3.7 g/dL 11/02/2015 Comp Metabolic Dlk312 TPRO 6.2 g/dL 11/02/2015 Comp Metabolic Tnu560 GLOB 2.5 g/dL 11/02/2015 Comp Metabolic Bkq036 A/G Ratio 1.5 Ratio 11/02/2015 Comp Metabolic Drr473 Osmo 276 mOsmo 11/02/2015 Iron Ord72 Iron 36 ug/dl 08/25/2015 Vitamin D 25 Oh Gyx5003 VITAMIN D, 25 HYDROXY 26.14 ng/mL Comp Metabolic Fzn573 NA 138 mEq/L 08/17/2015 Comp Metabolic Fzk171 K 4.5 mEq/L 08/17/2015 Comp Metabolic Mdj050 CL 100 mEq/L 08/17/2015 Comp Metabolic Bqu177 CO2 29.0 mEq/L 08/17/2015 Comp Metabolic Aok368 ANION GAP 14 08/17/2015 Comp Metabolic Xqg177 GLUCOSE 88 mg/dL 08/17/2015 Comp Metabolic Jsx335 Creat 0.8 mg/dL 08/17/2015 Comp Metabolic Uyq118 eGFR 74 ml/min/1.73m2 08/17/2015 Comp Metabolic Fdo672 BUN 9 mg/dL 08/17/2015 Comp Metabolic Rzn664 B/C Ratio 11.3 Ratio 08/17/2015 Comp Metabolic Azb008 CALCIUM 9.1 mg/dL 08/17/2015 Comp Metabolic Sjq055 ALK PHOS 88 U/L 08/17/2015 Comp Metabolic Zjl197 AST(SGOT) 16 U/L 08/17/2015 Comp Metabolic Siz717 ALT(SGPT) 13 U/L 08/17/2015 Comp Metabolic Kcx883 BILI T 0.4 mg/dL 08/17/2015 Comp Metabolic Igx274 ALBUMIN 4.0 g/dL 08/17/2015 Comp Metabolic Ylc315 TPRO 6.5 g/dL 08/17/2015 Comp Metabolic Uid667 GLOB 2.5 g/dL 08/17/2015 Comp Metabolic Eqi324 A/G Ratio 1.6 Ratio 08/17/2015 Comp Metabolic Kbr736 Osmo 274 mOsmo 08/17/2015 Cbc With Differential [...] 27.6 pg 08/17/2015 Cbc With Differential Ord2 [place]% 10.7 % 08/17/2015 Cbc With Differential Ord2 [...] 1.49 K/ul 08/17/2015 Cbc With Differential Ord2 [place] ABS# 0.4 K/ul 08/17/2015 Cbc With Differential [...] CPT-4: J0696 06/28/2017 THER/PROPH/DIAG INJ SC/IM CPT-4: 20499 06/28/2017 PPPS, SUBSEQ VISIT CPT -4: G0439 01/10/2017 Vital Signs Date Vital 07/06/2017 Blood Pressure 1: 126/74 Code : 8480-6 BMI: 25.3 Code : 34798-3 Heart Rate 1 : 70 bpm Height: 5'5" SpO2: 95% Weight: 152 lbs 06/28/2017 Blood Pressure 1: 126/64 Code : 8480-6 BMI: 25.3 Code : 62512-8 Heart Rate 1 : 58 bpm Height: 5'5" SpO2: 97% Temperature: 36.8 (C) / 98.3 (F) Weight: 152 lbs 01/10/2017 BMI: 25.8 Code: 55168-1 Height: 5'5" Weight: 155 lbs 01/02/2017 Blood Pressure 1: 138/78 Code : 8480-6 BMI: 25.8 Code : 74068-8 Heart Rate 1 : 58 bpm Height: 5'5" SpO2: 98% Weight: 155 lbs 06/23/2016 Blood Pressure 1: 138/78 Code : 8480-6 BMI: 25.8 Code : 67459-3 Height: 5'5" Weight: 155 lbs 05/19/2016 Blood Pressure 1: 138/80 Code : 8480-6 BMI: 25.6 Code : 64621-3 Heart Rate 1 : 61 bpm Height: 5'5" SpO2: 98% Weight: 154 lbs 02/25/2016 Blood Pressure 1: 158/82 Code : 8480-6 BMI: 24.9 Code : 74212-8 Heart Rate 1 : 66 bpm Height: 5'5" SpO2: 97% Weight: 149 lbs 8 oz 11/24/2015 Blood Pressure 1: 132/70 Code : 8480-6 BMI: 24.8 Code : 14211-2 Heart Rate 1 : 71 bpm Height: 5'5" SpO2: 98% Weight: 149 lbs 11/03/2015 Blood Pressure 1: 150/80 Code : 8480-6 Blood Pressure 1: 140/80 Code: 8480-6 BMI: 24.8 Code: 37055-1 Heart Rate 1: 71 bpm Height: 5'5" SpO2: 96% Weight: 149 lbs 08/17/2015 Blood Pressure 1: 140/80 Code : 8480-6 BMI: 24.3 Code : 35325-6 Heart Rate 1 : 63 bpm Height: [...] data Encounters Encounter Performer Location Codes Date ([id number]) [id number] EST. PATIENT, LEVEL III Diagnosis: Essential (primary) hypertension[ICD10: I10] Dilma Tran MD, [facility] CPT-4: 31531 07/06/2017 24088 EST. PATIENT, LEVEL III Diagnosis: Acute laryngopharyngitis[ICD10: J06.0] Diagnosis: Other allergic rhinitis[ICD10: J30.89] [facility] CPT-4: 22441 06/28/2017 ([id number]) 76389 EST. 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 PATIENT, LEVEL III Diagnosis: Essential (primary) hypertension[ICD10: I10] Diagnosis: Generalized anxiety disorder[ICD10: F41.1] Dilma Tran MD, [facility] CPT-4: 03740 06/23/2016 ([id number]) 86320 EST. 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 PATIENT, LEVEL IV Diagnosis: Essential (primary) hypertension[ICD10: I10] Diagnosis: Localized edema[ICD10: R60.0] Diagnosis: Generalized anxiety disorder[ICD10: F41.1] Dilma Tran MD, [facility] CPT-4: 23906 02/25/2016 ([id number]) 82793 EST. PATIENT, LEVEL IV Diagnosis: Essential (primary) hypertension[ICD10: I10] Diagnosis: Major depressive disorder, single episode, unspecified[ICD10: F32.9] Diagnosis: Generalized anxiety disorder[ICD10: F41.1] Dilma Tran MD, [facility] CPT-4: 63811 11/24/2015 ([id number]) 70447 EST. PATIENT, LEVEL IV Diagnosis: Essential (primary) hypertension[ICD10: I10] Diagnosis: Major depressive disorder, single episode, unspecified[ICD10: F32.9] Dilma Tran MD, [facility] CPT-4: 89313 11/03/2015 ([id number]) OFFICE VISIT, NEW - LEVEL 4 Diagnosis: Generalized anxiety disorder[ICD10: F41.1] Diagnosis: Major depressive disorder, single episode, unspecified[ICD10: F32.9] Diagnosis: Vitamin D deficiency, unspecified[ICD10: E55.9] Diagnosis: Iron deficiency anemia, unspecified[ICD10: D50.9] Diagnosis: Unspecified osteoarthritis, unspecified site[ICD10: M19.90] Georgette Tran MD, [facility] CPT-4: 25866 08/17/2015 Plan of Care Planned Activity Notes Codes Status Date App[facility]ment: [phone] [facility] [place] ([place] min) Moderate 07/06/2017 Patient Education: Patient Medication Summary Completed 07/06/2017 App[facility]ment: [facility] [place] ([facility] min) Moderate 06/28/2017 Patient Education: Patient Medication Summary Completed 06/28/2017 Patient Education: Patient Medication Summary Completed 04/19/2017 Patient Education: Patient Medication Summary Completed 01/27/2017 [facility]ment: [facility] [phone] [facility] [place] M[facility] - Annual Wellness Visit 01/10/2017 Patient Education: Patient Medication Summary Completed 01/10/2017 Appointment: Dil[facility] Tran [facility]Ptel[facility] [place] ([facility] min) Moderate 01/02/2017 Patient Education: Patient Medication Summary Completed 01/02/2017 Referral: Imelda Lyn Patient informed. Referral info faxed. Completed Appointment: Dil[facility] Tran [facility]el[facility] [place] ([facility] min) Moderate 06/23/2016 Patient Education: Patient Medication Summary Completed 06/23/2016 Care Plan: Referral Order SNOMED-CT : [id number] Pending 06/23/2016 Appointment: Dilma Tran WPtel: [address] [place], [place] [address] [place] (15 min) Moderate 05/19/2016 Patient Education: Patient Medication Summary Completed 05/19/2016 Appointment: Dil[facility] Tr[facility]el[facility] [place] ([place] min) Moderate 02/25/2016 Patient Education: Patient Medication Summary Completed 02/25/2016 Patient Education: Hypertension Completed 02/25/2016 Patient Education: Patient Medication Summary Completed 11/24/2015 Patient Education: Hypertension Completed 11/24/2015 Appointment: Dilma Tran WPtel: [address] [place], [place] [id number] [place] (15 min) Moderate 11/03/2015 Patient Education: Patient Medication Summary Completed 11/03/2015 Patient Education: Hypertension Completed 11/03/2015 Patient Education: Patient Medication Summary Completed 08/21/2015 Appointment: New Patient 08/17/2015 Patient Education: Patient Medication Summary Completed 08/17/2015 Referral: Imelda Lyn Referral Appointment Requested Instructions No Instructions
--- OUTSIDE RECORDS SUMMARY | 2018-06-19 12:31 | XMS REPORT | CCD ---
Author Author Georgette Milner Organization Dilma Tran MD, [facility] Address [address] [place] [address] Phone Care Team Providers Care Section Cutter Name Role Phone PP Unavailable CCM Unavailable Summary Purpose Interface Exchange Insurance Providers Payer name Policy type / Coverage type Covered alliance party ID Effective Begin Date Effective End Date WPS Medicare Part B Medicare Part B [id number] Unknown Unknown [employer] Medicare Part B [id number] Unknown Unknown Family history Mother Diagnosis Age [...] Unknown Retired 08/17/[address]: 709140485 Never smoker 08/17/[address]: 897520157 Never drinks alcohol 08/17/2015 Allergies, Adverse Reactions, [...] Start Date Stop Date Status Fill Instructions Kenalog 40 mg/mL suspension for injection RxNorm: 9657295 1 Milliliter(s) Inj 06/28/2017 06/28/2017 Inactive prednisone 20 mg tablet RxNorm: 231498 2 Tablet(s) PO daily 07/02/2017 Inactive ceftriaxone 500 mg solution for injection RxNorm: 2111189 1 Milliliter(s) Inj 06/28/2017 06/28/2017 Inactive Keflex 500 mg capsule RxNorm: 777892 1 Capsule(s) PO TID 201607/07/2017 Inactive Pepcid 20 mg tablet RxNorm: 079692 1 Tablet(s) PO BID 201608/21/2017 Active Zithromax Z-Bob 250 mg tablet RxNorm: 211003 1 Tablet(s) PO UD 06/23/2017 06/27/2017 Inactive Zithromax Z-Bob 250 mg tablet RxNorm: 237273 1 Tablet(s) PO UD 06/23/2017 06/22/2017 Inactive Pepcid 20 mg tablet RxNorm: 176163 1 Tablet(s) PO BID 201606/22/2017 Inactive losartan 100 mg-hydrochlorothiazide 12.5 mg tablet RxNorm: 970762 TAKE ONE TABLET BY MOUTH ONCE DAILY 05/19/2017 No Stop Date Active escitalopram 20 mg tablet RxNorm: 192377 TAKE ONE-HALF TABLET BY MOUTH TWICE DAILY 02/20/2017 08/18/2017 Active levothyroxine 25 mcg tablet RxNorm: 956313 1 Tablet(s) PO daily 01/27/2017 05/26/2017 Inactive levothyroxine 25 mcg tablet RxNorm: 554539 1 Tablet(s) PO daily 01/27/2017 01/26/2017 Inactive levothyroxine 25 mcg tablet RxNorm: 906845 1 Tablet(s) PO daily 01/27/2017 01/26/2017 Inactive escitalopram 20 mg tablet RxNorm: 856734 TAKE ONE-HALF TABLET BY MOUTH TWICE DAILY 12/19/2016 02/16/2017 Inactive escitalopram 20 mg tablet RxNorm: 576114 Tablet(s) TAKE ONE-HALF TABLET BY MOUTH TWICE DAILY 09/21/2016 06/17/2017 Inactive escitalopram 20 mg tablet RxNorm: 404962 TAKE ONE-HALF TABLET BY MOUTH TWICE DAILY 09/21/2016 09/20/2016 Inactive escitalopram 20 mg tablet RxNorm: 411845 1/2 Tablet(s) PO BID 05/19/2016 09/15/2016 Inactive losartan 100 mg-hydrochlorothiazide 12.5 mg tablet RxNorm: 784855 1 Tablet(s) PO daily 05/19/2016 05/13/2017 Inactive losartan 50 mg-hydrochlorothiazide 12.5 mg tablet RxNorm: 711828 1 Tablet(s) PO daily 02/25/2016 05/18/2016 Inactive escitalopram 10 mg tablet RxNorm: 207658 1/2 Tablet(s) PO BID 02/25/2016 05/18/2016 Inactive losartan 25 mg tablet RxNorm: 853940 1 Tablet(s) PO daily 201502/24/2016 Inactive Lexapro 5 mg tablet RxNorm: 589654 1 Tablet(s) PO QPM 201502/24/2016 Inactive Vitamin D2 50,000 unit capsule RxNorm: 769388 1 Capsule(s) PO QW 08/21/2015 11/23/2015 Inactive Calcium 500 + D 500 mg (1,250 mg)-200 unit tablet RxNorm: 110923 1 Tablet(s) PO daily No Start Date Active Vitamin D3 2,000 unit tablet RxNorm: 056981 1 Tablet(s) PO daily No Start Date Active melatonin 3 mg tablet RxNorm: 243494 1 Tablet(s) PO QHS No Start Date Active Joint Formula tablet RxNorm: 1 Tablet(s) PO BID No Start Date Active Super B-Complex oral RxNorm: oral No Start Date Active bilberry 100 mg capsule RxNorm: 982677 1 Capsule(s) PO daily No Start Date Active Vitamin D2 oral RxNorm : 4018 oral No Start Date 08/21/2015 Inactive boron oral RxNorm: 1705 oral No Start Date 11/23/2015 Inactive Vitamin D2 50,000 unit capsule RxNorm: 087684 1 Capsule(s) PO QW No Start Date 08/20/2015 Inactive Medication Administered Medication Codes Instructions Start Date Status Kenalog 40 mg/mL suspension for injection RxNorm: 0513639 1Milliliter 06/28/2017 No longer Active ceftriaxone 500 mg solution for injection RxNorm: 4798570 1Milliliter 06/28/2017 No longer Active Immunizations No [...] Ord6 hTSH II 4.86 uIU/mL 07/21/2017 Hepatic Ebd036 ALBUMIN 3.8 g/dL 07/21/2017 Hepatic Cay102 TPRO 6.1 g/dL 07/21/2017 Hepatic Ctv174 GLOB 2.3 g/dL 07/21/2017 Hepatic Sob146 A/G Ratio 1.6 Ratio 07/21/2017 Hepatic Bue231 ALK PHOS 75 U/L 07/21/2017 Hepatic Ctt720 ALT(SGPT) 21 U/L 07/21/2017 Hepatic Xds898 AST(SGOT) 18 U/L 07/21/2017 Hepatic Ryy365 BILI T 0.3 mg/dL 07/21/2017 Hepatic Olw911 BILI D 0.1 mg/dL 07/21/2017 Hepatic Wsd040 BILI I 0.2 mg/dL 07/21/2017 Lipid Ord30 CHOL 202 mg/dL 07/21/2017 Lipid Ord30 HDL 60.0 mg/dl 07/21/2017 Lipid Ord30 TRIG 80 mg/dL 07/21/2017 Lipid Ord30 LDL 126 mg/dL 07/21/2017 Lipid Ord30 C/HDL 3.4 Ratio 07/21/2017 Free T4 Wri769 FREE T4 0.96 ng/dL 04/28/2017 Lipid Ord30 CHOL 195 mg/dL 04/28/2017 Lipid Ord30 HDL 53.0 mg/dl 04/28/2017 Lipid Ord30 TRIG 96 mg/dL 04/28/2017 Lipid Ord30 LDL 123 mg/dL 04/28/2017 Lipid Ord30 C/HDL 3.7 Ratio 04/28/2017 Tsh Ord6 hTSH II 3.95 uIU/mL 04/28/2017 Hepatic Ifq000 ALBUMIN 4.0 g/dL 04/28/2017 Hepatic Mvp853 TPRO 6.2 g/dL 04/28/2017 Hepatic Vea430 GLOB 2.2 g/dL 04/28/2017 Hepatic Dyb933 A/G Ratio 1.8 Ratio 04/28/2017 Hepatic Lef307 ALK PHOS 77 U/L 04/28/2017 Hepatic Huw404 ALT(SGPT) 14 U/L 04/28/2017 Hepatic Scn934 AST(SGOT) 17 U/L 04/28/2017 Hepatic Gdn610 BILI T 0.6 mg/dL 04/28/2017 Hepatic Xwt046 BILI D 0.1 mg/dL 04/28/2017 Hepatic Kab928 BILI I 0.5 mg/dL 04/28/2017 Free T4 Kwb112 FREE T4 0.78 ng/dL 02/01/2017 Comp Metabolic Mcy743 NA 138 mEq/L 01/26/2017 Comp Metabolic Ilh857 K 5.4 mEq/L 01/26/2017 Comp Metabolic Cpc523 CL 102 mEq/L 01/26/2017 Comp Metabolic Qtf116 CO2 30.0 mEq/L 01/26/2017 Comp Metabolic Uuv723 ANION GAP 11 01/26/2017 Comp Metabolic Pmb930 GLUCOSE 93 mg/dL 01/26/2017 Comp Metabolic Pay701 Creat 0.8 mg/dL 01/26/2017 Comp Metabolic Nrq137 eGFR 71 ml/min/1.73m2 01/26/2017 Comp Metabolic Bhc260 BUN 13 mg/dL 01/26/2017 Comp Metabolic Tat165 B/C Ratio 15.9 Ratio 01/26/2017 Comp Metabolic Ebw292 CALCIUM 9.5 mg/dL 01/26/2017 Comp Metabolic Ojf264 ALK PHOS 71 U/L 01/26/2017 Comp Metabolic Iba954 AST(SGOT) 15 U/L 01/26/2017 Comp Metabolic Ugj230 ALT(SGPT) 11 U/L 01/26/2017 Comp Metabolic Cmm684 BILI T 0.5 mg/dL 01/26/2017 Comp Metabolic Mkt412 ALBUMIN 4.0 g/dL 01/26/2017 Comp Metabolic Viy307 TPRO 6.4 g/dL 01/26/2017 Comp Metabolic Agn609 GLOB 2.4 g/dL 01/26/2017 Comp Metabolic Cwx874 A/G Ratio 1.7 Ratio 01/26/2017 Comp Metabolic Ivk106 Osmo 275 mOsmo 01/26/2017 Bili D Ord93 [...] 29.8 pg 01/26/2017 Cbc With Differential Ord2 Hubbard% 8.9 % 01/26/2017 Cbc With Differential Ord2 [...] 2.01 K/ul 01/26/2017 Cbc With Differential Ord2 Hubbard ABS# 0.4 K/ul 01/26/2017 Cbc With Differential [...] Ord30 C/HDL 3.4 Ratio 07/22/2016 Comp Metabolic Khr832 NA 137 mEq/L 07/22/2016 Comp Metabolic Yqp854 K 4.3 mEq/L 07/22/2016 Comp Metabolic Cea350 CL 101 mEq/L 07/22/2016 Comp Metabolic Zrb876 CO2 31.0 mEq/L 07/22/2016 Comp Metabolic Jbu250 ANION GAP 9 07/22/2016 Comp Metabolic Ban771 GLUCOSE 90 mg/dL 07/22/2016 Comp Metabolic Gvg455 Creat 0.9 mg/dL 07/22/2016 Comp Metabolic Myh415 eGFR 64 ml/min/1.73m2 07/22/2016 Comp Metabolic Vfb469 BUN 9 mg/dL 07/22/2016 Comp Metabolic Grk476 B/C Ratio 10.0 Ratio 07/22/2016 Comp Metabolic Mei299 CALCIUM 9.4 mg/dL 07/22/2016 Comp Metabolic Jow073 ALK PHOS 65 U/L 07/22/2016 Comp Metabolic Trp260 AST(SGOT) 16 U/L 07/22/2016 Comp Metabolic Ged865 ALT(SGPT) 13 U/L 07/22/2016 Comp Metabolic Lya901 BILI T 0.4 mg/dL 07/22/2016 Comp Metabolic Mxb349 ALBUMIN 4.2 g/dL 07/22/2016 Comp Metabolic Iun217 TPRO 6.6 g/dL 07/22/2016 Comp Metabolic Rbz491 GLOB 2.4 g/dL 07/22/2016 Comp Metabolic Mes968 A/G Ratio 1.7 Ratio 07/22/2016 Comp Metabolic Ztl272 Osmo 272 mOsmo 07/22/2016 Tsh Ord6 hTSH II 3.94 uIU/mL 07/22/2016 Vitamin D 25 Oh Roa1998 VITAMIN D, 25 HYDROXY 55.11 ng/mL Comp Metabolic Qvp080 NA 139 mEq/L 11/02/2015 Comp Metabolic Hej006 K 4.3 mEq/L 11/02/2015 Comp Metabolic Bbw480 CL 103 mEq/L 11/02/2015 Comp Metabolic Xkp448 CO2 29.0 mEq/L 11/02/2015 Comp Metabolic Vzo801 ANION GAP 11 11/02/2015 Comp Metabolic Pir798 GLUCOSE 87 mg/dL 11/02/2015 Comp Metabolic Ojw983 Creat 0.8 mg/dL 11/02/2015 Comp Metabolic Zta438 eGFR 70 ml/min/1.73m2 11/02/2015 Comp Metabolic Bpv599 BUN 11 mg/dL 11/02/2015 Comp Metabolic Gne903 B/C Ratio 13.1 Ratio 11/02/2015 Comp Metabolic Dem279 CALCIUM 9.0 mg/dL 11/02/2015 Comp Metabolic Bsz805 ALK PHOS 90 U/L 11/02/2015 Comp Metabolic Dxd655 AST(SGOT) 15 U/L 11/02/2015 Comp Metabolic Qar387 ALT(SGPT) 12 U/L 11/02/2015 Comp Metabolic Mmi298 BILI T 0.5 mg/dL 11/02/2015 Comp Metabolic Rkz431 ALBUMIN 3.7 g/dL 11/02/2015 Comp Metabolic Sce474 TPRO 6.2 g/dL 11/02/2015 Comp Metabolic Evo290 GLOB 2.5 g/dL 11/02/2015 Comp Metabolic Zli388 A/G Ratio 1.5 Ratio 11/02/2015 Comp Metabolic Ooq676 Osmo 276 mOsmo 11/02/2015 Iron Ord72 Iron 36 ug/dl 08/25/2015 Vitamin D 25 Oh Rtu3607 VITAMIN D, 25 HYDROXY 26.14 ng/mL Comp Metabolic Bac775 NA 138 mEq/L 08/17/2015 Comp Metabolic Ydd521 K 4.5 mEq/L 08/17/2015 Comp Metabolic Auj476 CL 100 mEq/L 08/17/2015 Comp Metabolic Ypy596 CO2 29.0 mEq/L 08/17/2015 Comp Metabolic Mzv862 ANION GAP 14 08/17/2015 Comp Metabolic Mvq625 GLUCOSE 88 mg/dL 08/17/2015 Comp Metabolic Ydr753 Creat 0.8 mg/dL 08/17/2015 Comp Metabolic Fmo477 eGFR 74 ml/min/1.73m2 08/17/2015 Comp Metabolic Jyc870 BUN 9 mg/dL 08/17/2015 Comp Metabolic Jwc619 B/C Ratio 11.3 Ratio 08/17/2015 Comp Metabolic Mek102 CALCIUM 9.1 mg/dL 08/17/2015 Comp Metabolic Ibz758 ALK PHOS 88 U/L 08/17/2015 Comp Metabolic Hxj956 AST(SGOT) 16 U/L 08/17/2015 Comp Metabolic Kme390 ALT(SGPT) 13 U/L 08/17/2015 Comp Metabolic Bmk716 BILI T 0.4 mg/dL 08/17/2015 Comp Metabolic Ewt011 ALBUMIN 4.0 g/dL 08/17/2015 Comp Metabolic Hbk686 TPRO 6.5 g/dL 08/17/2015 Comp Metabolic Ube380 GLOB 2.5 g/dL 08/17/2015 Comp Metabolic Gvj530 A/G Ratio 1.6 Ratio 08/17/2015 Comp Metabolic Fny618 Osmo 274 mOsmo 08/17/2015 Cbc With Differential [...] 27.6 pg 08/17/2015 Cbc With Differential Ord2 Hubbard% 10.7 % 08/17/2015 Cbc With Differential Ord2 [...] 1.49 K/ul 08/17/2015 Cbc With Differential Ord2 Hubbard ABS# 0.4 K/ul 08/17/2015 Cbc With Differential [...] CPT-4: J0696 06/28/2017 THER/PROPH/DIAG INJ SC/IM CPT-4: 56166 06/28/2017 PPPS, SUBSEQ VISIT CPT -4: G0439 01/10/2017 Vital Signs Date Vital 07/06/2017 Blood Pressure 1: 126/74 Code : 8480-6 BMI: 25.3 Code : 88046-6 Heart Rate 1 : 70 bpm Height: 5'5" SpO2: 95% Weight: 152 lbs 06/28/2017 Blood Pressure 1: 126/64 Code : 8480-6 BMI: 25.3 Code : 08726-6 Heart Rate 1 : 58 bpm Height: 5'5" SpO2: 97% Temperature: 36.8 (C) / 98.3 (F) Weight: 152 lbs 01/10/2017 BMI: 25.8 Code: 21367-4 Height: 5'5" Weight: 155 lbs 01/02/2017 Blood Pressure 1: 138/78 Code : 8480-6 BMI: 25.8 Code : 21454-3 Heart Rate 1 : 58 bpm Height: 5'5" SpO2: 98% Weight: 155 lbs 06/23/2016 Blood Pressure 1: 138/78 Code : 8480-6 BMI: 25.8 Code : 35480-3 Height: 5'5" Weight: 155 lbs 05/19/2016 Blood Pressure 1: 138/80 Code : 8480-6 BMI: 25.6 Code : 73132-1 Heart Rate 1 : 61 bpm Height: 5'5" SpO2: 98% Weight: 154 lbs 02/25/2016 Blood Pressure 1: 158/82 Code : 8480-6 BMI: 24.9 Code : 44474-6 Heart Rate 1 : 66 bpm Height: 5'5" SpO2: 97% Weight: 149 lbs 8 oz 11/24/2015 Blood Pressure 1: 132/70 Code : 8480-6 BMI: 24.8 Code : 32880-3 Heart Rate 1 : 71 bpm Height: 5'5" SpO2: 98% Weight: 149 lbs 11/03/2015 Blood Pressure 1: 150/80 Code : 8480-6 Blood Pressure 1: 140/80 Code: 8480-6 BMI: 24.8 Code: 04697-1 Heart Rate 1: 71 bpm Height: 5'5" SpO2: 96% Weight: 149 lbs 08/17/2015 Blood Pressure 1: 140/80 Code : 8480-6 BMI: 24.3 Code : 68387-6 Heart Rate 1 : 63 bpm Height: [...] data Encounters Encounter Performer Location Codes Date ([id number]) 24213 EST. PATIENT, LEVEL III Diagnosis: Essential (primary) hypertension[ICD10: I10] Dilma Tran MD, [facility] CPT-4: 71810 07/06/2017 17092 EST. PATIENT, LEVEL III Diagnosis: Acute laryngopharyngitis[ICD10: J06.0] Diagnosis: Other allergic rhinitis[ICD10: J30.89] April Tran MD, [facility] CPT-4: 66986 06/28/2017 13144 97852 EST. PATIENT, LEVEL IV Diagnosis: Essential (primary) hypertension[ICD10: I10] Diagnosis: Major depressive disorder, single episode, mild[ICD10: F32.0] Diagnosis: Generalized anxiety disorder[ICD10: F41.1] Dilma Tran MD, [facility] CPT-4: 71859 01/02/2017 [id number] 58456 EST. PATIENT, LEVEL III Diagnosis: Essential (primary) hypertension[ICD10: I10] Diagnosis: Generalized anxiety disorder[ICD10: F41.1] Dilma Tran MD, [facility] CPT-4: 59107 06/23/2016 ([id number]) 61059 EST. PATIENT, LEVEL III Diagnosis: Essential (primary) hypertension[ICD10: I10] Diagnosis: Major depressive disorder, single episode, mild[ICD10: F32.0] Dilma Tran MD, [facility] CPT-4: 00043 05/19/2016 [id number]) 71673 EST. PATIENT, LEVEL IV Diagnosis: Essential (primary) hypertension[ICD10: I10] Diagnosis: Localized edema[ICD10: R60.0] Diagnosis: Generalized anxiety disorder[ICD10: F41.1] Dilma Tran MD, [facility] CPT-4: 39039 02/25/2016 ([id number]) 13350 EST. PATIENT, LEVEL IV Diagnosis: Essential (primary) hypertension[ICD10: I10] Diagnosis: Major depressive disorder, single episode, unspecified[ICD10: F32.9] Diagnosis: Generalized anxiety disorder[ICD10: F41.1] Dilma Tran MD, [facility] CPT-4: 23158 11/24/2015 ([id number]) 23359 EST. PATIENT, LEVEL IV Diagnosis: Essential (primary) hypertension[ICD10: I10] Diagnosis: Major depressive disorder, single episode, unspecified[ICD10: F32.9] Dilma Tran MD, [facility] CPT-4: 18618 11/03/2015 ([id number]) OFFICE VISIT, NEW - LEVEL 4 Diagnosis: Generalized anxiety disorder[ICD10: F41.1] Diagnosis: Major depressive disorder, single episode, unspecified[ICD10: F32.9] Diagnosis: Vitamin D deficiency, unspecified[ICD10: E55.9] Diagnosis: Iron deficiency anemia, unspecified[ICD10: D50.9] Diagnosis: Unspecified osteoarthritis, unspecified site[ICD10: M19.90] Georgette Tran MD, [facility] CPT-4: 51409 08/17/2015 Plan of Care Planned Activity Notes Codes Status Date Visit Plan: Hypertension - well controlled - continue with current medications, continue with no added salt diet. Pt has been encouraged to exercise daily. The pt has been advised to call the office if there are any acute concerns about change in blood pressure readings at home. 07/06/2017 Appointment: Dilma Tran WPtel: [address] [place], [place] [id number] (15 min) Moderate 07/06/2017 Patient Education: Patient [...] allergy spray. 06/28/2017 Appointment: [facility] [phone] [facility] (15 min) Moderate 06/28/2017 Patient Education: Patient [...] surrogate. 01/10/2017 Appointment: [facility] [phone] [phone] [facility] - Annual Wellness Visit 01/10/2017 Patient [...] medications. 01/02/2017 [facility] [phone] [facility] (15 min) Moderate 01/02/2017 Patient Education: Patient [...] medications. 06/23/2016 Appointment: [facility] [phone] [facility] (15 min) Moderate 06/23/2016 Patient Education: Patient Medication Summary Completed 06/23/2016 Care Plan: Referral Order SNOMED-CT : [id number] Pending 06/23/2016 Visit Plan: Hypertension - uncontrolled [...] 100mg/12.5mg daily. 05/19/2016 Appointment: [facility] [phone] [phone] (15 min) Moderate 05/19/2016 Patient Education: Patient [...] tablet daily. 02/25/2016 Appointment: Dilma Tran WPtel: [facility] [place] (15 min) Moderate 02/25/2016 Patient Education: Patient [...] appropriately prescribed for this patient. 11/03/2015 Appointment: Chelsea Dil[facility]el[facility] [phone] [facility] (15 min) Moderate 11/03/2015 Patient Education: Patient Medication Summary Completed 11/03/2015 Patient Education: Hypertension Completed 11/03/2015 Patient Education: Patient Medication Summary Completed 08/21/2015 Visit Plan: Ooyoajo-teaeojwiwu-qpgeqje not taking any medications at this time-will [...] keep you up. Take a probiotic (culturelle, [employer] or generic) while on the antibiotic. [...] exposure. No change in current medications. . Mvsykmw-mrsugzbyfd-kdgpgic not taking any medications at this time-will [...]
[2018-06-19] MEDS ORDERED: ESCI20TA45 (12:50)
[2018-06-19] MEDS ORDERED: LOSA1TAB26 (12:50)
[2018-06-19] MEDS ORDERED: LEVO50TA6 (12:50)
--- NOTE | 2018-06-19 12:53 | ED Fall/Injury ---
General Chief Complaint: Trauma-Non Activation Stated Complaint: FALL;HIP PAIN Nursing Triage Note: pt presents to ed with complaints of l hip pain from fall off bottom porch step onto concrete. reports l hip pain but denies any other injury. Source: patient, spouse Exam Limitations: no limitations History of Present Illness Date Seen by Provider: Jun 19, 2018 Time Seen by Provider: 12:38 Initial Comments Patient presents to ER by private conveyance with her significant other chief complaint that about 11:30 this morning, 2-1/2 hours prior to arrival she had a fall walking down her steps. She's not sure that she tripped over anything she does have a round out like she almost passed out but never lost total consciousness just her vision went away. She denies striking her head or full loss of consciousness. She did have nausea at the time but not now. She's also having pain in her left hip which is what she landed on. She has difficulty walking secondary to the pain but she is able to walk. She has no history of fracture in her left hip. No pain in her back. No dysuria discharge, fevers. She says she's had some cold sores lately but nothing else. She takes a blood pressure medicine and escitalopram for depression. She's not on blood thinners or aspirin. No history of stroke, heart attack. She does not smoke, drink or use illicit drugs. Location Injury Occurred: home residence Allergies and Home Medications Allergies Coded Allergies: codeine (Verified Allergy, Unknown, unk, 06/19/18) Patient Home Medication List Home Medication List Reviewed: Yes Review of Systems Review of Systems Constitutional: No chills, No diaphoresis Eyes: Denies Blindness, Denies Blurred Vision, Denies Pain Ears, Nose, Mouth, Throat: denies ear pain, denies ear discharge Respiratory: No cough, No short of breath Cardiovascular: No chest pain, No edema Gastrointestinal: No abdominal pain, No constipation, No diarrhea, No nausea Genitourinary: No discharge, No dysuria Musculoskeletal: see HPI; No back pain; joint pain Past Kjbgaij-Ekizkk-Gggznc Hx Patient Social History Alcohol Use: Denies Use Recreational Drug Use: No Smoking Status: Never a Smoker Recent Foreign Travel: No Contact w/Someone Who Travel: No Recent Infectious Disease Expo: No Recent Hopitalizations: No Seasonal Allergies Seasonal Allergies: No Past Medical History Surgeries: Yes Hysterectomy Respiratory: No Cardiac: Yes Hypertension Neurological: No Genitourinary: No Gastrointestinal: No Musculoskeletal: No Endocrine: No HEENT: No Psychosocial: Yes Depression Integumentary: No Physical Exam Vital Signs Vital Signs - First Documented 06/19/18 12:42 Pulse 85 Resp 16 B/P (MAP) 171/88 (115) Pulse Ox 98 Capillary Refill : Less Than 3 Seconds Height, Weight, BMI Height: 5'5.00" Weight: 150lbs. oz. 68.943062ul; BMI Method:Stated General Appearance: WD/WN, mild distress HEENT: PERRL/EOMI, pharynx normal Neck: non-tender, full range of motion, normal inspection Cardiovascular: normal peripheral pulses, regular rate, rhythm Respiratory: lungs clear, normal breath sounds, no respiratory distress, no accessory muscle use Peripheral Pulses: 2+ Dorsalis Pedis (R), 2+ Left Dors-Pedis (L) Gastrointestinal: normal bowel sounds, non tender, soft Pelvic: normal external exam Extremities: normal range of motion, normal capillary refill, other ( tenderness to palpation over the left greater trochanter of the femur and little bit over the left sacrum.) 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, no motor/sensory deficits, alert, normal mood/affect, oriented x 3 Skin: normal color, warm/dry [place] Coma Score Best Eye Response: (4) Open Spontaneously Best Verbal Response: (5) Oriented Best Motor Response: (6) Obeys Commands [place] Total: 15 Progress/Results/Core Measures Results/Orders Lab Results Laboratory Tests Test 06/19/18 13:05 06/19/18 13:34 Range/Units White Blood Count 4.0 L 4.3-11.0 10^3/uL Red Blood Count 4.06 L 4.35-5.85 10^6/uL Hemoglobin 12.5 11.5-16.0 G/DL Hematocrit 38 35-52 % Mean Corpuscular Volume 92 80-99 FL Mean Corpuscular Hemoglobin 31 25-34 PG Mean Corpuscular Hemoglobin Concent 33 32-36 G/DL Red Cell Distribution Width 13.4 10.0-14.5 % Platelet Count 176 130-400 10^3/uL Mean Platelet Volume 10.4 7.4-10.4 FL Neutrophils (%) (Auto) 53 42-75 % Lymphocytes (%) (Auto) 35 12-44 % Monocytes (%) (Auto) 10 0-12 % Eosinophils (%) (Auto) 2 0-10 % Basophils (%) (Auto) 1 0-10 % Neutrophils # (Auto) 2.1 1.8-7.8 X 10^3 Lymphocytes # (Auto) 1.4 1.0-4.0 X 10^3 Monocytes # (Auto) 0.4 0.0-1.0 X 10^3 Eosinophils # (Auto) 0.1 0.0-0.3 10^3/uL Basophils # (Auto) 0.0 0.0-0.1 10^3/uL Sodium Level 134 L 135-145 MMOL/L Potassium Level 4.1 3.6-5.0 MMOL/L Chloride Level 98 98-107 MMOL/L Carbon Dioxide Level 29 21-32 MMOL/L Anion Gap 7 5-14 MMOL/L Blood Urea Nitrogen 9 7-18 MG/DL Creatinine 0.80 0.60-1.30 MG/DL Estimat Glomerular Filtration Rate > 60 BUN/Creatinine Ratio 11 Glucose Level 87 70-105 MG/DL Calcium Level 8.7 8.5-10.1 MG/DL Corrected Calcium 8.7 8.5-10.1 MG/DL Total Bilirubin 0.5 0.1-1.0 MG/DL Aspartate Amino Transf (AST/SGOT) 26 5-34 U/L Alanine Aminotransferase (ALT/SGPT) 26 0-55 U/L Alkaline Phosphatase 86 40-136 U/L Troponin I < 0.30 <0.30 NG/ML Total Protein 6.6 6.4-8.2 GM/DL Albumin 4.0 3.2-4.5 GM/DL Thyroid Stimulating Hormone (TSH) 2.61 0.35-4.94 UIU/ML Urine Color YELLOW Urine Clarity CLEAR Urine pH 7 5-9 Urine Specific [place] 1.010 L 1.016-1.022 Urine Protein NEGATIVE NEGATIVE Urine Glucose (UA) NEGATIVE NEGATIVE Urine Ketones NEGATIVE NEGATIVE Urine Nitrite NEGATIVE NEGATIVE Urine Bilirubin NEGATIVE NEGATIVE Urine Urobilinogen NORMAL NORMAL MG/DL Urine Leukocyte Esterase 1+ H NEGATIVE Urine RBC (Auto) NEGATIVE NEGATIVE Urine RBC NONE /HPF Urine WBC 0-2 /HPF Urine Squamous Epithelial Cells 2-5 /HPF Urine Crystals NONE /LPF Urine Bacteria TRACE /HPF Urine Casts NONE /LPF Urine Mucus NEGATIVE /LPF Urine Culture Indicated NO My Orders Orders - KEYA ARAGON Cbc With Automated Diff (06/19/18 12:49) Comprehensive Metabolic Panel (06/19/18 12:49) Troponin I (06/19/18 12:49) Ua Culture If Indicated (06/19/18 12:49) Chest Pa/Lat (2 View) (06/19/18 12:49) Pelvis With Left Hip 2-3 Views (06/19/18 12:49) Saline Lock/Iv-Start (06/19/18 12:49) Orthostatic Vital Signs (Adult (06/19/18 12:49) Continuous Ekg Monitoring (06/19/18 12:49) Ekg Tracing (06/19/18 12:49) Thyroid Stimulating Hormone (06/19/18 12:53) Ct Head/Cervical Spine Wo (06/19/18 12:53) Vital Signs/I&O 06/19/18 06/19/18 12:42 13:30 Pulse 85 59 60 64 Resp 16 B/P (MAP) 171/88 (115) 157/80 (105) 159/79 (105) 149/70 (96) Pulse Ox 98 Blood Pressure Mean: 115 Progress Progress Note : Time: 13:21 Progress Note Unexplained near syncope with fall. Orthostatics, labs, urine, EKG looking for dysrhythmia, CT of the head and neck looking for cause of fall and/or intracranial trauma as well as x-ray of the left hip. She is declining anything for pain at this time. Orthostatics are unremarkable. Labs and imaging are unremarkable. No source for that near-syncope found. We'll follow up with primary care. Initial ECG Impression Date: Jun 19, 2018 Initial ECG Impression Time: 13:15 Initial ECG Rate: 58 Initial ECG Rhythm: Normal Sinus Initial ECG Intervals: Normal Initial ECG Impression: Normal Initial ECG Comparisson: No Previous ECG Available Comment No dysrhythmia, ST changes Diagnostic Imaging Diagonstic Imaging: Xray Plain Films/CT/US/NM/MRI: chest Comments No acute cardiopulmonary process noted. Reviewed: Reviewed by Me Diagonstic Imaging: CT (noncontrast) Plain Films/CT/US/NM/MRI: c-spine, head Comments [facility] [place], [place] NAME: TAMRA MCKEON [facility] REC#: [id number] PT STATUS: REG ER : 1940 PHYSICIAN: KEYA ARAGON MD ADMIT DATE: 06/19/18/ER Draft Date of Exam:06/19/18 CT HEAD/CERVICAL SPINE WO PROCEDURE: CT head and CT cervical spine without contrast. TECHNIQUE: Multiple contiguous axial images were obtained through the brain and cervical spine without the use of intravenous contrast. Sagittal and coronal reformations through the cervical spine were then performed. INDICATION: Fall. No prior studies are available for comparison. CT HEAD: The ventricles and sulci are appropriate for the patient's age. No sulcal effacement or midline shift is seen. No acute intra-axial or extra-axial hemorrhage is seen. The cisterns are patent. The visualized paranasal sinuses are clear. IMPRESSION: No acute intracranial process is detected. CT CERVICAL SPINE: There is straightening of the normal cervical lordotic curvature. There is multilevel degenerative disc disease with variable disc space narrowing and marginal spurring, greatest C4-C5, C5-6 and C6-C7 levels. Prevertebral tissues are within normal limits. There is multilevel facet arthropathy. No fracture is seen. The odontoid is intact. IMPRESSION: Cervical spondylosis. No acute bony abnormality is detected. Dictated on workstation # [id number] Dict: 06/19/18 1355 Trans: 06/19/18 1359 [facility] [id number] Interpreted by: LILA COLES MD Electronically signed by: Reviewed: Reviewed by Me Diagonstic Imaging: Xray Plain Films/CT/US/NM/MRI: hip (left) Comments No acute osseous abnormality noted. Phleboliths noted in the pelvis of no clinical significance. Reviewed: Reviewed by Me Departure Impression Primary Impression: Fall Qualified Codes: W19.XXXA - Unspecified fall, initial encounter Additional Impressions: Sacral contusion Qualified Codes: S30.0XXA - Contusion of lower back and pelvis, initial encounter Left hip pain Near syncope Disposition: 01 HOME, SELF-CARE Condition: Stable Departure-Patient Inst. Decision time for Depature: 14:23 Referrals: VALERIA CARDOZA MD Patient Instructions: Hip Pain (DC) Add. Discharge Instructions: Ice for 20 minutes every 4 hours for the first 3 days. Use heating pads as well as Tylenol 1000 mg and ibuprofen 800 mg every 8 hours each. Follow-up with primary care in the next 1-2 weeks to discuss your near syncopal episode. If you 're still having significant pain or difficulty getting around at that point and it may be reasonable to consider physical therapy, chiropractic or further evaluation of your hip. All discharge instructions reviewed with patient and/or family. Voiced understanding. KEYA ARAGON Jun 19, 2018 12:53
[2018-06-19 13:15] LABS: BASOPHILS % (AUTO) 1 % (0-10); EOSINOPHILS # (AUTO) 0.1 10^3/uL (0.0-0.3); EOSINOPHILS % (AUTO) 2 % (0-10); HEMATOCRIT 38 % (35-52); HEMOGLOBIN 12.5 G/DL (11.5-16.0); LYMPHOCYTES # (AUTO) 1.4 X 10^3 (1.0-4.0); LYMPHOCYTES % (AUTO) 35 % (12-44); MEAN CORPUSCULAR HEMOGLOBIN 31 PG (25-34); MEAN CORPUSCULAR HGB CONC 33 G/DL (32-36); MEAN CORPUSCULAR VOLUME 92 FL (80-99); MEAN PLATELET VOLUME 10.4 FL (7.4-10.4); MONOCYTES # (AUTO) 0.4 X 10^3 (0.0-1.0); MONOCYTES % (AUTO) 10 % (0-12); NEUTROPHILS # (AUTO) 2.1 X 10^3 (1.8-7.8); NEUTROPHILS % (AUTO) 53 % (42-75); PLATELET COUNT 176 10^3/uL (130-400); RED BLOOD COUNT 4.06 10^6/uL (4.35-5.85); RED CELL DISTRIBUTION WIDTH 13.4 % (10.0-14.5)
[2018-06-19 13:30] VITALS: BP_SYST 149; BP_SYST 157; BP_SYST 159; BP_DIAS 70; BP_DIAS 79; BP_DIAS 80
[2018-06-19 13:40] LABS: ALANINE AMINOTRANSFERASE 26 U/L (0-55); ALKALINE PHOSPHATASE 86 U/L (40-136); BILIRUBIN,TOTAL 0.5 MG/DL (0.1-1.0); BUN/CREATININE RATIO 11; CALCIUM 8.7 MG/DL (8.5-10.1); CARBON DIOXIDE 29 MMOL/L (21-32); CHLORIDE 98 MMOL/L (98-107); GFR ESTIMATED > 60; GLUCOSE 87 MG/DL (70-105); POTASSIUM 4.1 MMOL/L (3.6-5.0); SODIUM 134 MMOL/L (135-145); TOTAL PROTEIN 6.6 GM/DL (6.4-8.2)
[2018-06-19 13:43] LABS: BILIRUBIN,URINE NEGATIVE (NEGATIVE); CLARITY,URINE CLEAR; COLOR,URINE YELLOW; GLUCOSE, URINE (UA) NEGATIVE (NEGATIVE); KETONES,URINE NEGATIVE (NEGATIVE); LEUKOCYTE ESTERASE ,URINE 1+ (NEGATIVE); NITRITE,URINE NEGATIVE (NEGATIVE); PH,URINE 7 (5-9); PROTEIN,URINE NEGATIVE (NEGATIVE); UROBILINOGEN,URINE NORMAL (NORMAL)
[2018-06-19 13:56] LABS: BACTERIA,URINE TRACE /HPF; WBC,URINE 0-2 /HPF
--- NOTE | 2018-06-19 14:00 | Diagnostic Imaging Report ---
PROCEDURE: CT head and CT cervical spine without contrast. TECHNIQUE: Multiple contiguous axial images were obtained through the brain and cervical spine without the use of intravenous contrast. Sagittal and coronal reformations through the cervical spine were then performed. INDICATION: Fall. No prior studies are available for comparison. CT HEAD: The ventricles and sulci are appropriate for the patient's age. No sulcal effacement or midline shift is seen. No acute intra-axial or extra-axial hemorrhage is seen. The cisterns are patent. The visualized paranasal sinuses are clear. IMPRESSION: No acute intracranial process is detected. CT CERVICAL SPINE: There is straightening of the normal cervical lordotic curvature. There is multilevel degenerative disc disease with variable disc space narrowing and marginal spurring, greatest C4-C5, C5-6 and C6-C7 levels. Prevertebral tissues are within normal limits. There is multilevel facet arthropathy. No fracture is seen. The odontoid is intact. IMPRESSION: Cervical spondylosis. No acute bony abnormality is detected. Dictated by: Dictated on workstation # [id number]
--- NOTE | 2018-06-19 14:19 | Diagnostic Imaging Report ---
Indication: Left hip pain following a fall. Findings: There is no fracture, dislocation or acute-appearing articular incongruity. Impression: No acute finding radiographically apparent. Dictated by: Dictated on workstation # [id number]
--- NOTE | 2018-06-19 14:23 | Diagnostic Imaging Report ---
Indication: Fall, pain. Findings: No lung contusion, pneumothorax or hemothorax. Cardiomediastinal and hilar contours unremarkable. No chest wall fracture deformity identified. Impression: No acute or posttraumatic sequelae radiographically apparent. Dictated by: Dictated on workstation # [id number]
[2018-06-19 14:39] VITALS: BP 149/70
== END 2018-06-19 14:44 ==
LOC: EDUNIT# 12:16 → ER 12:17
DX: S30.0XXA Contusion of lower back and pelvis, initial encounter (principal); M25.552 Pain in left hip; R55 Syncope and collapse; I10 Essential (primary) hypertension; F32.9 Major depressive disorder, single episode, unspecified; R40.2142 Coma scale, eyes open, spontaneous, at arrival to emergency department; R40.2252 Coma scale, best verbal response, oriented, at arrival to emergency department; R40.2362 Coma scale, best motor response, obeys commands, at arrival to emergency department; Z88.5 Allergy status to narcotic agent; Z90.710 Acquired absence of both cervix and uterus; W10.8XXA Fall (on) (from) other stairs and steps, initial encounter
CPT/HCPCS: 36415; 70450; 71046; 72125; 80053; 81000; 84443; 84484; 85025; 93005

== ENCOUNTER 2020-04-28 10:41 | Emergency (ER) | payer MEDICARE, OTHER ==
[~2020-04-28] VITALS: Ht 165 cm; Wt 72.0 kg
[~2020-04-28 10:41] MED LIST: ESCI20TA45; LEVO50TA6; LOSA1TAB26
--- NOTE | 2020-04-28 11:07 | Diagnostic Imaging Report ---
INDICATION: Fall. Time of exam: 1105 AM 3 views of the left ankle were obtained. There is an obliquely oriented fracture of the distal fibula. No significant displacement or angulation is seen. Ankle mortise is well maintained. Talar dome is smooth. No other fractures are identified. IMPRESSION: Obliquely oriented distal fibular fracture. Dictated by: Dictated on workstation # [id number]
--- NOTE | 2020-04-28 11:12 | ED Lower Extremity ---
General Chief Complaint: Lower Extremity Stated Complaint: FALL Nursing Triage Note: PT CO OF FALL AND L ANKLE PAIN FROM FALL. PT DENIES HITTING HEAD OR NECK PAIN. Nursing Sepsis Screen: No Definite Risk Source: patient Exam Limitations: no limitations History of Present Illness Date Seen by Provider: Apr 28, 2020 Time Seen by Provider: 10:42 Initial Comments This pleasant 80-year-old woman presents to the emergency room with left ankle injury after slipping on ice and falling with her ankle bent behind/beneath her. She denies striking her head or neck. She has minimal pain in the left knee which has dissipated. She drove her self here but is not ambulatory. Allergies and Home Medications Allergies Coded Allergies: codeine (Verified Allergy, Unknown, unk, 06/19/18) Home Medications Hydrocodone/Acetaminophen 1 Each Tablet, 0.5-1 EACH PO Q6H PRN for PAIN-MODERATE (5-7) Prescribed by: KENNETH MCKEON on 04/28/20 1124 Patient Home Medication List Home Medication List Reviewed: Yes Review of Systems Constitutional: no symptoms reported EENTM: no symptoms reported Respiratory: no symptoms reported Cardiovascular: no symptoms reported Gastrointestinal: no symptoms reported Genitourinary: no symptoms reported : No Musculoskeletal: see HPI Skin: change in color Psychiatric/Neurological: No Symptoms Reported Past Atkjxnl-Hmpyvq-Muvktj Hx Past Med/Social Hx: Reviewed Nursing Past Med/Soc Hx Patient Social History Alcohol Use: Denies Use Recreational Drug Use: No Smoking Status: Never a Smoker Recent Foreign Travel: No Contact w/Someone Who Travel: No Recent Infectious Disease Expo: No Recent Hopitalizations: No Seasonal Allergies Seasonal Allergies: No Past Medical History Surgeries: Yes Hysterectomy Respiratory: No Cardiac: Yes Hypertension Neurological: No : No Genitourinary: No Gastrointestinal: No Musculoskeletal: No Endocrine: No HEENT: No Cancer: No Psychosocial: Yes Depression Integumentary: No Physical Exam Vital Signs Vital Signs - First Documented 04/28/20 10:41 Temp 36.9 Pulse 67 Resp 18 B/P (MAP) 186/99 (128) Pulse Ox 99 Capillary Refill : Less Than 3 Seconds Height, Weight, BMI Height: 5'5.00" Weight: 150lbs. oz. 68.053318oa; 26.00 BMI Method:Stated General Appearance: WD/WN, no apparent distress, thin HEENT: PERRL/EOMI, normal ENT inspection Cardiovascular: regular rate, rhythm, no edema Respiratory: lungs clear, normal breath sounds, no respiratory distress Hips: bilateral hip non-tender, bilateral hip normal inspection, bilateral hip normal range of motion, bilateral hip no evidence of injury, bilateral hip other (No pain with rotation of the hips) Legs: bilateral leg non-tender, bilateral leg normal inspection, bilateral leg normal range of motion, bilateral leg no evidence of injury Knees: bilateral knee non-tender, bilateral knee normal inspection, bilateral knee normal range of motion, bilateral knee no evidence of injury Ankles: right ankle non-tender, right ankle normal inspection, right ankle normal range of motion, right ankle no evidence of injury; left ankle bone tenderness, left ankle deformity, left ankle ecchymosis, left ankle limited range of motion, left ankle pain, left ankle swelling Feet: bilateral foot non-tender, bilateral foot normal inspection, bilateral foot normal range of motion, bilateral foot no evidence of injury, bilateral foot other (Strong pedal pulses) 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 Patient declined pain medication. She was fitted with a boot and crutches and instructed to follow-up with orthopedic provider of her choice as soon as possible. Diagnostic Imaging Diagonstic Imaging: Xray Plain Films/CT/US/NM/MRI: ankle Comments X-ray viewed by me and report reviewed. See report below: NAME: TAMRA MCKEON [facility] REC#: [id number] PT STATUS: REG ER : 1940 PHYSICIAN: KENNETH BAUGH MD ADMIT DATE: 04/28/20/ER Draft Date of Exam:04/28/20 ANKLE, LEFT, 3 VIEWS INDICATION: Fall. Time of exam: 1105 AM 3 views of the left ankle were obtained. There is an obliquely oriented fracture of the distal fibula. No significant displacement or angulation is seen. Ankle mortise is well maintained. Talar dome is smooth. No other fractures are identified. IMPRESSION: Obliquely oriented distal fibular fracture. Dictated on workstation # [id number] Dict: 04/28/20 1105 Trans: 04/28/20 1107 [facility] [id number] Interpreted by: LILA COLES MD Departure Impression Primary Impression: Fracture of distal fibula Qualified Codes: S82.832A - Other fracture of upper and lower end of left fibula, initial encounter for closed fracture Additional Impression: Fall on stairs Qualified Codes: W10.9XXA - Fall (on) (from) unspecified stairs and steps, initial encounter Disposition: 01 HOME, SELF-CARE Condition: Improved Departure-Patient Inst. Decision time for Depature: 11:22 Referrals: NO,LOCAL PHYSICIAN (PCP) Primary Care Physician AARTI MILLER MD, MICHAEL P MD Patient Instructions: Ankle Fracture (DC) Add. Discharge Instructions: Use crutches or a walker to ambulate. Toe-touch weightbearing on the left foot only. Wear the boot as much as possible. Follow-up with an orthopedic provider soon as possible. A couple of orthopedic providers are listed below for your convenience. Elevation on a soft surface and 20-minute intervals of icing should help reduce pain and swelling. Elevate foot as much as possible. Fill your pain medication if needed. If only mild pain control as needed, you may use Tylenol (acetaminophen) up to 1000 mg every 6 hours. If you fill the hydrocodone prescription, you may also want to get an akzt-tpk-olsspps stool softener as hydrocodone may cause constipation. Return to care if you have any worsening symptoms or concerns. All discharge instructions reviewed with patient and/or family. Voiced understanding. Scripts Hydrocodone/Acetaminophen (Hydrocodone-Acetamin 5-325 mg) 1 Each Tablet 0.5-1 EACH PO Q6H PRN for PAIN-MODERATE (5-7), #10 TAB Prov: KENNETH BAUGH MD 04/28/20 KENNETH BAUGH MD Apr 28, 2020 11:12
[2020-04-28] MEDS ORDERED: ACHD5005 PO (11:24)
[2020-04-28 11:56] VITALS: BP 186/100
== END 2020-04-28 11:56 | disposition home or self-care (01) ==
LOC: EDUNIT# 10:41 → ER 10:42
DX: S82.432A Displaced oblique fracture of shaft of left fibula, initial encounter for closed fracture (principal); Z88.5 Allergy status to narcotic agent; W01.0XXA Fall on same level from slipping, tripping and stumbling without subsequent striking against object, initial encounter
CPT/HCPCS: 73610

== ENCOUNTER 2021-12-27 20:30 | Emergency (ER) | payer MEDICARE, OTHER ==
[~2021-12-27] VITALS: Ht 165.1 cm; Wt 72.0 kg
[~2021-12-27 20:30] MED LIST changes: +ACHD5005 PO; +ESCI20TA39; -ESCI20TA45
[2021-12-27] MEDS ORDERED: MILK OF MAGNESIA 400 MG/5 ML 30 ML UDC PO STA (21:40)
[2021-12-27] MEDS ORDERED: FLEET ENEMA ADULT 1 EA BTL PR STA (21:40)
[2021-12-27] MEDS ORDERED: RX-ONDANSETRON 4 MG ODT (ZOFRAN) PPK #4 PO STA (21:45)
--- NOTE | 2021-12-27 21:45 | ED GI ---
General Chief Complaint: Abdominal/GI Problems Stated Complaint: CONSTIPATION - NAUSEA Nursing Triage Note: C/O NAUSEA AND CONSTIPATION NO BM SINCE MONDAY. RATES PAIN 8/10 IN LOWER ABDOMEN. History of Present Illness Date Seen by Provider: Dec 27, 2021 Time Seen by Provider: 21:00 Initial Comments 81-year-old female patient reports traveling for the last week, she had a bowel movement on 12/24/2001 but none since then. She does report occasionally belching and passing flatus. She has problems with constipation when she travels. She took stool softeners at 1600 today. She reports eating full meals each day. Timing/Duration: 3-4 Days Severity/Quality: Mild Location: Generalized Abdomen Associated Symptoms: Denies Symptoms Allergies and Home Medications Allergies Coded Allergies: codeine (Verified Allergy, Unknown, unk, 06/19/18) Patient Home Medication List Home Medication List Reviewed: Yes Escitalopram Oxalate (Escitalopram Oxalate) 20 Mg Tablet, (Reported) Entered as Reported by: CORNEL RUANO on 06/19/18 1250 Hydrocodone/Acetaminophen (Hydrocodone-Acetamin 5-325 mg) 1 Each Tablet, 0.5-1 EACH PO Q6H PRN for PAIN-MODERATE (5-7) Prescribed by: KENNETH MCKEON on 04/28/20 1124 Levothyroxine Sodium (Levothyroxine Sodium) 50 Mcg Tablet, (Reported) Entered as Reported by: CORNEL RUANO on 06/19/18 1250 Losartan/Hydrochlorothiazide (Losartan-Hctz 100-12.5 mg Tab) 1 Each Tablet, (Reported) Entered as Reported by: CORNEL RUANO on 06/19/18 1250 Review of Systems Review of Systems Constitutional: no symptoms reported, see HPI Gastrointestinal: See HPI, Constipated; Denies Nausea, Denies Vomiting All Other Systems Reviewed Negative Unless Noted: Yes Past Fhmrsxm-Gpipnk-Dsfjij Hx Patient Social History Tobacco Use?: No Substance use?: No Alcohol Use?: No Seasonal Allergies Seasonal Allergies: No Past Medical History Surgeries: Yes Hysterectomy Respiratory: No Cardiac: Yes Hypertension Neurological: No Genitourinary: No Gastrointestinal: No Musculoskeletal: No Endocrine: No HEENT: No Cancer: No Psychosocial: Yes Depression Integumentary: No Family Medical History Reviewed Nursing Family Hx Physical Exam Vital Signs Vital Signs - First Documented 12/27/21 21:00 Temp 36.6 Pulse 60 Resp 18 B/P (MAP) 197/96 (129) Pulse Ox 97 Capillary Refill : Height/Weight/BMI Height: 5'5.00" Weight: 150lbs. oz. 68.358126ib; 26.00 BMI Method:Stated General Appearance: WD/WN, no apparent distress Respiratory: chest non-tender, lungs clear, normal breath sounds Cardiovascular: normal peripheral pulses, regular rate, rhythm Gastrointestinal: normal bowel sounds, non tender, soft, distended (trace); No rebound, No tenderness Neurologic/Psychiatric: no motor/sensory deficits, alert, normal mood/affect, oriented x 3 Progress/Results/Core Measures Results/Orders My Orders Orders - JAVID ASHLEY Magnesium Hydroxide Oral Susp (Mom Oral (12/27/21 21:40) Na Phos/Na Biphos Enema (Fleet Enema Ghanshyam (12/27/21 21:40) Rx-Ondansetron Po (Rx-Zofran Po) (12/27/21 21:45) Vital Signs/I&O 12/27/21 12/27/21 21:00 21:53 Temp 36.6 36.6 Pulse 60 60 Resp 18 18 B/P (MAP) 197/96 (129) 197/96 Pulse Ox 97 97 Blood Pressure Mean: 129 Departure Impression Primary Impression: Constipation Qualified Codes: K59.00 - Constipation, unspecified Disposition: 01 HOME, SELF-CARE Condition: Improved Departure-Patient Inst. Decision time for Depature: 21:40 Referrals: VALERIA CARDOZA MD (PCP/Family) Primary Care Physician Patient Instructions: Constipation, Adult (DC) Add. Discharge Instructions: Increase water intake. Use the enema as soon as you return home. Increase walking. Continue your stool softener for 3 to 4 days until bowel habits returned to normal. To prevent constipation when you are traveling, start your stool softener on day one of your travel. Follow-up with your primary care provider if symptoms or not improving or worsen. Eat prunes regularly. Return to the emergency department for new, urgent healthcare needs. All discharge instructions reviewed with patient and/or family. Voiced understanding. JAVID ASHLEY Dec 27, 2021 21:45
[2021-12-27 21:53] VITALS: BP 197/96
== END 2021-12-27 21:53 | disposition home or self-care (01) ==
LOC: EDUNIT# 20:30 → ER 20:31
DX: K59.00 Constipation, unspecified (principal); Z90.710 Acquired absence of both cervix and uterus
CPT/HCPCS: 99283

== ENCOUNTER → 2022-03-10 | Outpatient (CLI) | payer MEDICARE, OTHER ==
--- NOTE | 2022-03-10 15:34 | Diagnostic Imaging Report ---
INDICATION: Back pain x1 month EXAM: Thoracic spine FINDINGS: AP and lateral views of the thoracic spine show normal vertebral body height and alignment. There are degenerative disc changes at T8-T9 and T9-T10. IMPRESSION: Degenerative disc changes at T8-T9 and T9-T10. No acute abnormality seen. Dictated by: Dictated on workstation # [id number]
== END ==
LOC: RAD 10:04
PROVIDERS: ATTEND Family Medicine
DX: M51.34 Other intervertebral disc degeneration, thoracic region (principal)
CPT/HCPCS: 72072

== ENCOUNTER → 2022-09-08 | Outpatient (CLI) | payer MEDICARE, OTHER | LOC: CARD 10:30 | PROVIDERS: ATTEND Family Medicine | DX: I49.9 Cardiac arrhythmia, unspecified (principal) | CPT/HCPCS: 93005 ==